=== PATIENT | female | born 1960 | race Caucasian/White ===

== ENCOUNTER 2017-08-16 19:32 | Emergency (ER) | payer SELFPAY ==
[2017-08-16] MEDS ORDERED: Bupivacaine 0.5% 10 ML VIAL ONE (19:55)
[2017-08-16] MEDS ORDERED: Ketorolac Tromethamine 30 MG/ML VIAL ONE (20:24)
[2017-08-16] MEDS ORDERED: Diazepam 10 MG/2 ML SYRINGE ONE (20:24)
== END 2017-08-16 20:48 | disposition home or self-care (01) ==
LOC: SCSER 19:32
DX: M62.838 Other muscle spasm (principal); I10 Essential (primary) hypertension; E11.9 Type 2 diabetes mellitus without complications; J45.909 Unspecified asthma, uncomplicated; F17.200 Nicotine dependence, unspecified, uncomplicated; Z79.84 Long term (current) use of oral hypoglycemic drugs; Z79.899 Other long term (current) drug therapy
CPT/HCPCS: 20552; 93005; 96374; 96375; J1885; J3360; J3490

== ENCOUNTER 2017-08-17 05:55 | Emergency (ER) | payer SELFPAY ==
[2017-08-17] MEDS ORDERED: Methocarbamol 500 MG TAB ONE ×2 (06:18)
== END 2017-08-17 06:37 | disposition home or self-care (01) ==
LOC: SCSER 05:55
DX: M62.838 Other muscle spasm (principal); E11.9 Type 2 diabetes mellitus without complications; F17.200 Nicotine dependence, unspecified, uncomplicated; G45.9 Transient cerebral ischemic attack, unspecified; I10 Essential (primary) hypertension; J45.909 Unspecified asthma, uncomplicated; Z79.84 Long term (current) use of oral hypoglycemic drugs; Z79.899 Other long term (current) drug therapy
CPT/HCPCS: 20552

== ENCOUNTER 2017-08-18 13:43 | Emergency (ER) | payer SELFPAY | END 2017-08-18 15:30 | disposition left against medical advice (07) | LOC: SCSER 13:43 | DX: Z53.21 Procedure and treatment not carried out due to patient leaving prior to being seen by health care provider (principal) ==

== ENCOUNTER 2017-08-19 22:22 | Emergency (ER) | payer SELFPAY ==
[2017-08-19] MEDS ORDERED: Morphine Sulfate 2 MG/ML SYRINGE ONE (22:53)
[2017-08-19] MEDS ORDERED: predniSONE 20 MG TAB ONE (22:53)
--- NOTE | 2017-08-19 23:34 | RAD ---
THORACIC SPINE THREE VIEWS: 08/19/17 HISTORY: Upper back pain. FINDINGS/IMPRESSION: No fracture or subluxation or bony destruction is identified. Mild degenerative changes are present. POS: [facility]
== END 2017-08-19 23:48 | disposition home or self-care (01) ==
LOC: SCSER 22:22
DX: M79.1 Myalgia (principal); E11.9 Type 2 diabetes mellitus without complications; I10 Essential (primary) hypertension; J45.909 Unspecified asthma, uncomplicated; F17.200 Nicotine dependence, unspecified, uncomplicated
CPT/HCPCS: 72072; 94640; 96372; J2270; J7506; J7620

== ENCOUNTER 2017-11-06 20:39 | Emergency (ER) | payer SELFPAY ==
[2017-11-06 22:14] LABS: #Eosinphils 0.2 thou/uL (0.0-0.7); #Lymphocytes 1.6 thou/uL (1.20-3.40); #Monocytes 0.3 thou/uL (0.11-0.59); #Neutrophils 3.4 thou/uL (1.40-6.50); %Basophils 0.7 % (0.0-1.0); %Eosinophils 3.4 % (0.0-10.0); %Lymphocytes 28.9 % (21.0-51.0); %Monocytes 5.1 % (0.0-10.0); Hematocrit 28.5 % (36.0-47.0); Mean Platelet Volume 5.1 fL (7.4-10.4); White Blood Cell (WBC) Count 5.5 thou/uL (4.8-10.8)
[2017-11-06 22:29] LABS: Anion Gap 15 mmol/L (10-20); BUN (Urea Nitrogen) 16 mg/dL (9.8-20.1); CK (CPK) 38 U/L (29-168); Calc. Creatinine Clearance 0 mL/min (70-130); Calcium 9.5 mg/dL (7.8-10.44); Carbon Dioxide 23 mmol/L (22-29); Chloride 108 mmol/L (98-107); Estimated GFR-MDRD 33
[2017-11-06 22:32] LABS: Troponin I Less than 0.010 ng/mL (< 0.028)
--- NOTE | 2017-11-06 23:10 | RAD ---
CHEST PA AND LATERAL: History: 57-year-old female with shortness of breath and fluid retention. FINDINGS: Heart size is within normal limits. There are minimal stable increased linear and interstitial markin gs noted bilaterally but no confluent pneumonia, overt edema, or pleural effusion. No significant radha nge from prior exam dating back to 07-04-16. IMPRESSION: No acute intrathoracic disease. POS: [facility]
[2017-11-06] MEDS ORDERED: Furosemide 40 MG/4 ML VIAL ONE (23:26)
== END 2017-11-06 23:52 | disposition home or self-care (01) ==
LOC: SCSER 20:39
DX: I12.9 Hypertensive chronic kidney disease with stage 1 through stage 4 chronic kidney disease, or unspecified chronic kidney disease (principal); E11.22 Type 2 diabetes mellitus with diabetic chronic kidney disease; N18.9 Chronic kidney disease, unspecified; E03.9 Hypothyroidism, unspecified; K21.9 Gastro-esophageal reflux disease without esophagitis; E78.5 Hyperlipidemia, unspecified; Z86.73 Personal history of transient ischemic attack (TIA), and cerebral infarction without residual deficits; Z85.41 Personal history of malignant neoplasm of cervix uteri; J45.909 Unspecified asthma, uncomplicated; F17.210 Nicotine dependence, cigarettes, uncomplicated; Z79.82 Long term (current) use of aspirin; Z79.84 Long term (current) use of oral hypoglycemic drugs; Z79.899 Other long term (current) drug therapy
CPT/HCPCS: 71020; 80048; 82553; 83880; 84484; 85025; 93005; 96374; J1940

== ENCOUNTER 2018-09-25 08:28 | Inpatient (IN) | payer SELFPAY ==
[2018-09-25 08:56] LABS: #Eosinphils 0.1 thou/uL (0.0-0.7); #Lymphocytes 1.2 thou/uL (1.20-3.40); #Monocytes 0.3 thou/uL (0.11-0.59); #Neutrophils 4.2 thou/uL (1.40-6.50); %Basophils 0.2 % (0.0-1.0); %Eosinophils 2.5 % (0.0-10.0); %Lymphocytes 20.2 % (21.0-51.0); %Monocytes 4.9 % (0.0-10.0); %Neutrophils 72.2 % (42.0-75.0); Hemoglobin 8.5 g/dL (12.0-16.0); Mean Corpuscular HGB CONC 31.7 g/dL (32.0-36.0); Mean Corpuscular Hemoglobin 27.9 pg (27.0-31.0); Mean Corpuscular Volume 88.1 fL (78.0-98.0); Mean Platelet Volume 7.7 fL (7.4-10.4); Platelet Count 147 thou/uL (130-400); Red Blood Cell (RBC) Count 3.03 mill/uL (4.20-5.40); White Blood Cell (WBC) Count 5.8 thou/uL (4.8-10.8)
--- NOTE | 2018-09-25 09:03 | RAD ---
PORTABLE CHEST 1 VIEW: Date: 09/25/18 Time: 0854 hours HISTORY: Chest pain, asthma. FINDINGS/IMPRESSION: Comparison made with exam of 09/18/17. The heart size is borderline. The lungs are well expanded with mild infiltrate at the right lung base with accompanying small effusion. POS: [facility]
[2018-09-25 09:18] LABS: ALT (SGPT) 9 U/L (8-55); AST (SGOT) 14 U/L (5-34); Albumin 4.2 g/dL (3.5-5.0); Alkaline Phosphatase 93 U/L (40-150); Anion Gap 14 mmol/L (10-20); BUN (Urea Nitrogen) 27 mg/dL (9.8-20.1); Bilirubin, Total 0.5 mg/dL (0.2-1.2); CK (CPK) 36 U/L (29-168); Calc. Creatinine Clearance 0 mL/min (70-130); Calcium 9.9 mg/dL (7.8-10.44); Carbon Dioxide 18 mmol/L (22-29); Chloride 112 mmol/L (98-107); Estimated GFR-MDRD 23; Globulin 3.4 g/dL (2.4-3.5); Glucose 130 mg/dL (70-105); Potassium 5.2 mmol/L (3.5-5.1); Protein, Total 7.6 g/dL (6.0-8.3); Sodium 139 mmol/L (136-145)
[2018-09-25 09:20] LABS: CKMB 1.2 ng/mL (0-6.6); Troponin I 0.068 ng/mL (< 0.028)
[2018-09-25] MEDS ORDERED: Azithromycin 500 MG VIAL ONE (09:21)
[2018-09-25] MEDS ORDERED: cefTRIAXone\\ROCEPHIN 1 GM VIAL ONE (09:21)
[2018-09-25 09:33] LABS: Free T4 (Free Thyroxine) 1.35 ng/dL (0.70-1.48); Thyroid Stimulating Hormone 0.8564 uIU/mL (0.35-4.94)
[2018-09-25] MEDS ORDERED: Dextrose 5% in Water 1,000 ML IV PRN (11:56)
[2018-09-25] MEDS ORDERED: Bisacodyl 10 MG SUPP PR PRN (11:56)
[2018-09-25] MEDS ORDERED: Calcium Carbonate 500 MG ChewTAB PO PRN (11:56)
[2018-09-25] MEDS ORDERED: Cepastat Lozenges 1 LOZ PO PRN (11:56)
[2018-09-25] MEDS ORDERED: Senokot S 8.6-50 MG TAB PO PRN (11:56)
[2018-09-25] MEDS ORDERED: Bisacodyl 5 MG TAB PO PRN (11:56)
[2018-09-25] MEDS ORDERED: Ondansetron ODT 4 MG TAB PO PRN (11:56)
[2018-09-25] MEDS ORDERED: Eucerin (Mineral Oil/Petrolatum,White) 30 gm Jar TOP PRN (11:56)
[2018-09-25] MEDS ORDERED: Loperamide HCl 2 MG CAP PO PRN (11:56)
[2018-09-25] MEDS ORDERED: Loratadine 10 MG TAB PO PRN (11:56)
[2018-09-25] MEDS ORDERED: Zolpidem Tartrate 5 MG TAB PO PRN (11:56)
[2018-09-25] MEDS ORDERED: Diabetic Tussin 200 MG/10 ML UDCUP PO PRN (11:56)
[2018-09-25] MEDS ORDERED: Artificial Tears 18 DROP/0.9 ML EA EYE PRN (11:56)
[2018-09-25] MEDS ORDERED: hydrALAZINE 20 MG/ML VIAL SLOW IVP PRN (11:56)
[2018-09-25] MEDS ORDERED: Dextrose 50% Abboject 50 ML SYRINGE SLOW IVP PRN (11:56)
[2018-09-25] MEDS ORDERED: Ondansetron PF 4 MG/2 ML Vial IVP PRN (11:56)
--- NOTE | 2018-09-25 12:18 | HP ---
DATE OF ADMISSION: 09/25/2018 PRIMARY CARE PHYSICIAN: [facility]. REASON FOR ADMISSION: Acute respiratory failure with hypoxia, community-acquired bacterial pneumonia , elevated troponin. HISTORY OF PRESENT ILLNESS: A 58-year-old female who has underlying history of asthma/COPD as well a s ongoing tobacco abuse disorder who presented to emergency room with a complaint of increasing short ness of breath for the last 2 days. The patient noticed that last week she started feeling shortness of breath and she was managing symptoms with her inhaler, but for the last 2 days, her inhaler was n ot working and she was feeling more shortness of breath. She was having orthopnea. She denies any l ower extremity edema. She reports that for last 2 days, she also was having increased amount of coug h without any sputum. She denies any hemoptysis. She denies any lower extremity edema or calf tende rness. She was feeling chest pain because of coughing. She was also experiencing her own wheezing. Night time, her symptoms were getting worse. She denies any recent travel or sick exposure. She co ntinued to smoke about half pack per day during this period. She is up-to-date in her flu vaccinatio n and she had pneumonia vaccine last year. She was experiencing some pleuritic discomfort. In the e mergency room, when she came to the ER, at that time her oxygen saturation was 80%-84%. She was slig htly tachycardic and she was having wheezing and no fever. Routine blood tests showed no new finding other than chest x-ray reported pneumonia. The patient denies any UTI symptoms. She denies any constipation, diarrhea, melena or hematochezia. REVIEW OF SYSTEMS: The following complete review of systems was negative, unless otherwise mentioned in the HPI or below: Constitutional: Weight loss or gain, ability to conduct usual activities. Sk in: Rash, itching. Eyes: Double vision, pain. ENT/Mouth: Nose bleeding, neck stiffness, pain, te nderness. Cardiovascular: Palpitations, dyspnea on exertion, orthopnea. Respiratory: Shortness of breath, wheezing, cough, hemoptysis, fever or night sweats. Gastrointestinal: Poor appetite, abdom inal pain, heartburn, nausea, vomiting, constipation, or diarrhea. Genitourinary: Urgency, frequenc y, dysuria, nocturia. Musculoskeletal: Pain, swelling. Neurologic/Psychiatric: Anxiety, depressio n. Allergy/Immunologic: Skin rash, bleeding tendency. Please see my HPI for pertinent positive and negative. All other review of systems reviewed and negative except as mentioned in the HPI. ALLERGIES: CODEINE, MEPERIDINE, PENICILLIN and SULFA. CURRENT HOME MEDICATIONS: Synthroid 175 mcg p.o. daily, amlodipine 10 mg daily, Zocor 40 mg p.o. at bedtime, ranitidine 300 mg p.o. at bedtime, Lasix 40 mg daily, albuterol inhaler nebulizer as needed, aspirin 81 mg 2 tablets daily, calcium with vitamin D 1 tablet daily, fish oil 1000 mg p.o. daily, g lyburide 5 mg as needed basis. PAST MEDICAL HISTORY: Diabetes type 2, hypothyroidism, hypertension, gastroesophageal reflux disease , dyslipidemia, history of cervical cancer, history of TIA, mild intermittent asthma/COPD, CKD stage 4. PAST SURGICAL HISTORY: Cholecystectomy, x2, hysterectomy, rotator cuff surgery on right sh oulder. PAST PSYCHIATRIC HISTORY: Reviewed and negative. SOCIAL HISTORY: The patient is , lives at home with the family. She smokes about half pack p er day. She denies any alcohol abuse. She denies any other illicit drug abuse. FAMILY HISTORY: The patient is . The patient's father had heart disease in his 60s and clemente r had dementia and pancreatic cancer. EMERGENCY ROOM COURSE: The patient has received Rocephin and azithromycin. PHYSICAL EXAMINATION: VITAL SIGNS: Currently on admission, blood pressure 172/71, pulse 112, respiratory rate 24, temperat ure 98.0, saturation 82% on room air, weight 76.2 kilograms. GENERAL: The patient is currently alert, awake, tachycardic, hypertensive. No obvious acute distres s. HEAD: Normocephalic, atraumatic. EYES: Pupils round and reactive to light. Extraocular muscle intact. ENT: Oropharynx within normal limits. Moist mucous membranes. No oral lesion, no pharyngeal erythe ma, no exudate. NECK: Supple. No JVD, no thyromegaly, no carotid bruit. LUNGS: Bilateral few end expiratory wheezing heard. Right basal rales noted. No accessory muscles of respiration in use. CARDIAC: S1, S2 regular, tachycardia. No murmur, no gallop, no rub. ABDOMEN: Soft, bowel sounds present, nontender, nondistended. No organomegaly, no mass, no suprapub ic tenderness. BACK: Unremarkable. No CVA tenderness. EXTREMITIES: Upper extremities, passive movement of all joints are normal. Lower extremities, trace edema noted. Good distal pulsation. SKIN: No skin rash. HEMATOLOGICAL: No lymphadenopathy. NEUROLOGIC: Nonfocal examination. Speech normal. SIGNIFICANT LABORATORY DATA: EKG showing sinus tachycardia, nonspecific ST-T changes. Chest x-ray s howing right lower lobe infiltration with small pleural effusion. CBC, WBC 5.8, hemoglobin 8.5 and p latelets 147,000. BMP, sodium 139, potassium 5.2, chloride 112, carbon dioxide 18, BUN 27, creatinin e 2.17, glucose 130, calcium 9.9. LFT, AST 14, ALT 9, alkaline phosphatase 93, albumin 4.2, CK 36, C K-MB 1.2. Troponin 0.068. Free T4 1.35. TSH 0.85. ASSESSMENT AND PLAN: 1. Acute respiratory failure with hypoxia. This patient has underlying asthma and currently she has radiologically proven pneumonia, which we are suspecting community-acquired bacterial pneumonia that is contributing to her hypoxia. The patient does not have any risk factor for thromboembolic disord er and less likely to be, but needs to be excluded. As the patient has renal insufficiency, we will do ventilation perfusion scan and we will obtain ultrasound of bilateral lower extremity and we will also obtain echocardiography. The patient will need oxygen to maintain saturation above 92% and we w ill try to wean from oxygen as tolerated. 2. Community-acquired pneumonia, likely bacterial, suspecting Streptococcal pneumoniae. The patient is already started on Rocephin and azithromycin, which she has tolerated very well, which we will co ntinue while in hospital. We will continue with Mucinex 600 mg twice daily. 3. Asthma/chronic obstructive pulmonary disease exacerbation. The patient will be given DuoNeb ther apy q.6 hourly and Dulera 2 puffs inhalation b.i.d., Mucinex 600 mg twice daily and appropriate antib iotic therapy with Rocephin and azithromycin. The patient will be given Solu-Medrol 20 mg IV q.8 fariha rly. We will check respiratory virus panel to identify a precipitating etiology. 4. Elevated troponin, likely due to demand ischemia. We will do serial cardiac enzymes x3 and monit or on telemetry floor. We will obtain echocardiography and continue the aspirin 162 mg p.o. daily. We will check lipid profile tomorrow morning. 5. Diabetes type 2. We will continue with insulin as per sliding scale protocol. The patient is no t taking any scheduled medication at home. Diabetic diet will be given. 6. Hypothyroidism. We will continue Synthroid 175 mcg p.o. daily. 7. Hypertension. Continue amlodipine 10 mg p.o. daily. 8. Dyslipidemia. Check lipid profile tomorrow and continue Zocor 40 mg p.o. at bedtime. 9. Gastroesophageal reflux disease. Continue Pepcid 20 mg p.o. daily. 10. Chronic kidney disease stage 4. Monitor renal function and avoid nephrotoxin agent. The patien t also has associated mild hyperkalemia and metabolic acidosis. We will repeat renal function test t omorrow. The patient is following Dr. Ricardo as an outpatient basis. 11. Anemia, normocytic, normochromic, likely due to renal disease. We will continue ferrous sulfate 325 mg p.o. daily. 12. Tobacco abuse disorder. The patient is given smoking cessation counseling. Healthy lifestyle m easures discussed with the patient. 13. Deep venous thrombosis prophylaxis, heparin 5000 units subcu twice daily. 14. Gastrointestinal prophylaxis, Pepcid 20 mg p.o. daily. CODE STATUS: The patient is full code. The patient does not have any surrogate decision maker. Disposition plan based on clinical course. We are expecting the patient's stay in hospital more than 2 midnights. Plan of care discussed with the patient in detail.
[2018-09-25 12:56] VITALS: BMI 32.8
[2018-09-25] MEDS: Calcium Carbonate + Vit D 1 TAB PO SCH (15:52)
[2018-09-25 16:50] LABS: Troponin I 0.169 ng/mL (< 0.028)
--- NOTE | 2018-09-25 17:02 | ULT ---
BILATERAL LOWER EXTREMITY VENOUS DOPPLER ULTRASOUND: Date: 09/25/18 HISTORY: Bilateral lower extremity edema and shortness of breath. TECHNIQUE: Wilcox scale ultrasound with color flow and spectral Doppler imaging of the deep venous systems of the lower extremities was performed bilaterally. FINDINGS: There is good flow, compression, and augmentation noted in the common femoral, femoral, deep femoral, popliteal, posterior tibial, and greater saphenous veins on either side. IMPRESSION: No evidence of deep venous thrombosis in either lower extremity. POS: [facility]
--- NOTE | 2018-09-25 17:49 | NM ---
VQ SCAN: HISTORY: Chest pain. Shortness of breath. CORRELATION: Chest radiograph from the same date. TECHNIQUE: A ventilation/perfusion scan was performed using 9.7 millicuries Xenon-133 by inhalation for the vent ilation study, followed by the intravenous administration of 5.4 millicuries technetium 99m MAA for t he perfusion scan. FINDINGS: Fairly homogeneous tracer distribution is seen in the lung rahman bilaterally on ventilation/perfusio n scans without mismatched, pleural-based, wedge-shaped, segmental/subsegmental perfusion defects. T here is tracer retention on the wash-out phase of the ventilation scan, consistent with COPD. IMPRESSION: Very low probability for pulmonary embolism. POS: [facility]
[2018-09-25] MEDS: Mometasone/Formoterol 120 PUFF INHALER INH SCH (18:21)
[2018-09-25] MEDS: Simvastatin 40 MG TAB PO SCH (21:30)
[2018-09-25] MEDS: guaiFENesin ER 600 MG TAB PO SCH (21:30)
[2018-09-25] MEDS: HumaLOG 300 UNITS/3 ML VIAL SC PRN (21:31)
[2018-09-26 04:51] LABS: Bilirubin Negative (Negative); Blood, Urine Small (Negative); Clarity CLOUDY (Clear); Glucose, Urine (Dipstick) Negative (Negative); Leukocyte Large (Negative); Nitrite Negative (Negative); Protein, Urine (Dipstick) > or equal to 300 mg/dL (Neg-Trace); Specific Gravity, Urine 1.017 (1.002-1.036); Urobilinogen 0.2 mg/dL (0.2-1.0)
[2018-09-26 04:54] LABS: Hyaline Casts/LPF 4-6 HYALINE CAST LPF (0-3 Hyaline); Pathc Cast-AUWi Flag 1.45 (0-2.49); WBC/HPF 21-50 HPF (0-3)
[2018-09-26 05:07] LABS: Yeast-AUWi Flag 44.4 (0-25.0)
[2018-09-26 05:23] LABS: Bacteria/HPF Rare-Few HPF (None Seen)
[2018-09-26] MEDS: Levothyroxine 175 MCG TAB PO SCH (05:24)
[2018-09-26 05:27] LABS: ALT (SGPT) 7 U/L (8-55); AST (SGOT) 10 U/L (5-34); Albumin 3.5 g/dL (3.5-5.0); Alkaline Phosphatase 74 U/L (40-150); Anion Gap 11 mmol/L (10-20); BUN (Urea Nitrogen) 33 mg/dL (9.8-20.1); Bilirubin, Total 0.4 mg/dL (0.2-1.2); Calc. Creatinine Clearance 34 mL/min (70-130); Calcium 9.4 mg/dL (7.8-10.44); Carbon Dioxide 19 mmol/L (22-29); Cardiac Risk 2.4 (Less than 4.5); Chloride 112 mmol/L (98-107); Cholesterol 88 mg/dl (< 200 Desired); Estimated GFR-MDRD 22; Globulin 2.8 g/dL (2.4-3.5); Glucose 206 mg/dL (70-105); HDL Cholesterol 37 mg/dL (>60 Neg Risk); LDL Cholesterol, Calculated 41 mg/dL; Protein, Total 6.3 g/dL (6.0-8.3); Sodium 136 mmol/L (136-145); Triglycerides 51 mg/dL (Less than 150)
[2018-09-26 06:12] LABS: #Lymphocytes 0.4 thou/uL (1.20-3.40); #Neutrophils 3.3 thou/uL (1.40-6.50); %Eosinophils 0.4 % (0.0-10.0); %Lymphocytes 9.9 % (21.0-51.0); %Neutrophils 88.7 % (42.0-75.0); Hemoglobin 7.6 g/dL (12.0-16.0); MDiff Complete? YES; Mean Corpuscular HGB CONC 31.7 g/dL (32.0-36.0); Mean Corpuscular Hemoglobin 28.3 pg (27.0-31.0); Mean Corpuscular Volume 89.1 fL (78.0-98.0); Mean Platelet Volume 8.1 fL (7.4-10.4); Ovalocytes SLIGHT = 2-5 cells (100X) (0-1/hpf); Platelet Count 111 thou/uL (130-400); RBC Distribution Width 14.6 % (11.5-14.5); White Blood Cell (WBC) Count 3.7 thou/uL (4.8-10.8)
[2018-09-26] MEDS: HumaLOG 300 UNITS/3 ML VIAL SC PRN ×3 (06:55→17:33)
[2018-09-26 07:43] LABS: Creatinine, Urine 135.41 mg/dL (47-110)
[2018-09-26] MEDS: Mometasone/Formoterol 120 PUFF INHALER INH SCH ×2 (07:48→18:15)
[2018-09-26] MEDS: Calcium Carbonate + Vit D 1 TAB PO SCH ×2 (08:18→17:38)
[2018-09-26] MEDS: Ferrous Sulfate 325 MG TAB PO SCH (08:18)
[2018-09-26] MEDS: Amlodipine 10 MG TAB PO SCH (08:19)
[2018-09-26] MEDS: cefTRIAXone\\ROCEPHIN 1 GM in Sodium Chloride 0.9% 100 ML IVPB SCH (08:19)
[2018-09-26] MEDS: Fish Oil 1,000 MG CAP PO SCH (08:20)
[2018-09-26] MEDS: Famotidine 20 MG TAB PO SCH (08:20)
[2018-09-26] MEDS: Sodium Bicarbonate Tab 325 MG TAB PO SCH ×2 (08:20→21:11)
[2018-09-26] MEDS: guaiFENesin ER 600 MG TAB PO SCH ×2 (08:20→21:12)
[2018-09-26] MEDS: Azithromycin 500 MG in Sodium Chloride 0.9% 250 ML 250 ML IVPB SCH (09:15)
--- NOTE | 2018-09-26 09:41 | PDOC.PN ---
- Subjective Encounter Start Date: 09/26/18 Encounter Start Time: 07:00 -: old records requested/rev Patient seen and examined. No new complaints. No overnight events pt has less cough and less dyspnea - Objective Resuscitation Status: Resuscitation Status FULL:Full Resuscitation MAR Reviewed: Yes Vital Signs & Weight: Vital Signs (12 hours) Temp Pulse Resp BP BP Pulse Ox 09/26/18 08:19 77 154/70 H 09/26/18 08:00 97.5 F L 77 20 154/70 H 98 09/26/18 07:49 98 09/26/18 07:48 78 16 98 09/26/18 04:00 97.7 F 67 18 128/60 96 09/25/18 23:55 97.7 F 77 19 126/58 L 96 Weight Weight 174 lb I&O: 09/25/18 09/26/18 09/27/18 06:59 06:59 06:59 Intake Total 474 Balance 474 Result Diagrams: 09/26/18 04:10 09/26/18 04:10 Additional Labs: Accuchecks 09/26/18 09/25/18 09/25/18 05:56 20:15 17:01 POC Glucose 210 H 257 H 137 H Radiology Reviewed by me: Yes (V/Q scan, US leg, Echo reviewed) EKG Reviewed by me: Yes (nsr) Phys Exam - Physical Examination Constitutional: NAD HEENT: PERRLA, moist MMs, sclera anicteric Neck: no JVD, supple bilateral scattered rales Cardiovascular: RRR, no significant murmur, no rub Gastrointestinal: soft, non-tender, no distention, positive bowel sounds Musculoskeletal: no edema, pulses present Neurological: non-focal, normal sensation, moves all 4 limbs Lymphatic: no nodes Psychiatric: normal affect, A&O x 3 Skin: no rash, normal turgor Dx/Plan (1) Acute respiratory failure with hypoxia Code(s): J96.01 - ACUTE RESPIRATORY FAILURE WITH HYPOXIA Status: Acute (2) CKD (chronic kidney disease) stage 4, GFR 15-29 ml/min Code(s): N18.4 - CHRONIC KIDNEY DISEASE, STAGE 4 (SEVERE) Status: Acute (3) COPD exacerbation Code(s): J44.1 - CHRONIC OBSTRUCTIVE PULMONARY DISEASE W (ACUTE) EXACERBATION Status: Acute (4) Community acquired bacterial pneumonia Code(s): J15.9 - UNSPECIFIED BACTERIAL PNEUMONIA Status: Acute (5) Demand ischemia of myocardium Code(s): I24.8 - OTHER FORMS OF ACUTE ISCHEMIC HEART DISEASE Status: Acute (6) Hyperkalemia Code(s): E87.5 - HYPERKALEMIA Status: Acute (7) Metabolic acidosis Code(s): E87.2 - ACIDOSIS Status: Acute (8) Thrombocytopenia Code(s): D69.6 - THROMBOCYTOPENIA, UNSPECIFIED Status: Acute (9) UTI (urinary tract infection) Status: Acute (10) Anemia of renal disease Code(s): N18.9 - CHRONIC KIDNEY DISEASE, UNSPECIFIED; D63.1 - ANEMIA IN CHRONIC KIDNEY DISEASE Status: Chronic (11) DM type 2 (diabetes mellitus, type 2) Status: Chronic (12) HLD (hyperlipidemia) Code(s): E78.5 - HYPERLIPIDEMIA, UNSPECIFIED Status: Chronic (13) HTN (hypertension) Code(s): I10 - ESSENTIAL (PRIMARY) HYPERTENSION Status: Chronic (14) Hypothyroidism Code(s): E03.9 - HYPOTHYROIDISM, UNSPECIFIED Status: Chronic (15) Nephrotic syndrome Code(s): N04.9 - NEPHROTIC SYNDROME WITH UNSPECIFIED MORPHOLOGIC CHANGES Status: Chronic (16) Obesity (BMI 30.0-34.9) Code(s): E66.9 - OBESITY, UNSPECIFIED Status: Chronic (17) Tobacco abuse Code(s): Z72.0 - TOBACCO USE Status: Chronic - Plan cont current plan of care, continue antibiotics, respiratory therapy * kayexalate 30 gm po one time * start sodium bicarbonate 650 mg po bid * continue Rocephin and azithromycin * continue respiratory therapy * monitor oxygen saturation * medication reviewed as below * symptomatic treatment. * repeat labs Review of Systems - Review of Systems Eyes: negative: Pain, Vision Change, Conjunctivae Inflammation, Eyelid Inflammation, Redness, Other ENT: negative: Ear Pain, Ear Discharge, Nose Pain, Nose Discharge, Nose Congestion, Mouth Pain, Mouth Swelling, Throat Pain, Throat Swelling, Other Respiratory: Cough. negative: Dry, Shortness of Breath, Hemoptysis, SOB with Excertion, Pleuritic Pain, Sputum, Wheezing Cardiovascular: negative: chest pain, palpitations, orthopnea, paroxysmal nocturnal dyspnea, edema, light headedness, other Gastrointestinal: negative: Nausea, Vomiting, Abdominal Pain, Diarrhea, Constipation, Melena, Hematochezia, Other Genitourinary: negative: Dysuria, Frequency, Incontinence, Hematuria, Retention , Other Musculoskeletal: negative: Neck Pain, Shoulder Pain, Arm Pain, Back Pain, Hand Pain, Leg Pain, Foot Pain, Other Skin: negative: Rash, Lesions, Sascha, Bruising, Other - Medications/Allergies Allergies/Adverse Reactions: Allergies Allergy/AdvReac Type Severity Reaction Status Date / Time codeine Allergy Verified 09/25/18 12:44 meperidine HCl [From Demerol] Allergy Verified 09/25/18 12:44 Penicillins Allergy Verified 09/25/18 12:44 sulfamethoxazole Allergy Verified 09/25/18 12:44 [From Bactrim] trimethoprim [From Bactrim] Allergy Verified 09/25/18 12:44 Medications: Current Medications Acetaminophen (Tylenol) 650 mg PO Q4H PRN PRN Reason: Headache/Fever/Mild Pain (1-3) Albuterol/Ipratropium (Duoneb) 3 ml NEB [id number] [facility] Last Admin: 09/26/18 07:48 Dose: 3 ml Albuterol/Ipratropium (Duoneb) 3 ml NEB [id number] PRN PRN Reason: SOB &/or Wheezing Amlodipine Besylate (Norvasc) 10 mg PO DAILY [facility] Last Admin: 09/26/18 08:19 Dose: 10 mg Artificial Tears (Tears Naturale) 2 drop EA EYE PRN PRN PRN Reason: Dry Eyes Aspirin (Aspirin Chewable) 162 mg PO DAILY [facility] Last Admin: 09/26/18 08:19 Dose: 162 mg Bisacodyl (Dulcolax) 10 mg PO DAILYPRN PRN PRN Reason: Constipation Bisacodyl (Dulcolax) 10 mg MO DAILYPRN PRN PRN Reason: Constipation Calcium Carbonate (Tums) 1,000 mg PO Q4H PRN PRN Reason: Heartburn or Indigestion Calcium/Vitamin D (Caltrate 600 + Vit D) 1 tab PO BID-[facility] Last Admin: 09/26/18 08:18 Dose: 1 tab Dextrose/Water (Dextrose 50%) 25 gm SLOW IVP PRN PRN PRN Reason: Hypoglycemia Famotidine (Pepcid) 20 mg PO DAILY [facility] Last Admin: 09/26/18 08:20 Dose: 20 mg Ferrous Sulfate (Feosol) 325 mg PO QA-[facility] Last Admin: 09/26/18 08:18 Dose: 325 mg Fish Oil (Fish Oil) 1,000 mg PO DAILY [facility] Last Admin: 09/26/18 08:20 Dose: 1,000 mg Glucagon (Glucagon) 1 mg IM PRN PRN PRN Reason: Hypoglycemia Guaifenesin (Mucinex) 600 mg PO Q12HR [facility] Last Admin: 09/26/18 08:20 Dose: 600 mg Guaifenesin (Robitussin Sf) 200 mg PO Q4H PRN PRN Reason: Cough Hydralazine HCl (Apresoline) 10 mg SLOW IVP Q4H PRN PRN Reason: SBP Greater Than 170 Azithromycin 500 mg/ Sodium (Chloride) 250 mls @ 250 mls/hr IVPB 1000 [facility] Last Admin: 09/26/18 09:15 Dose: 250 mls Ceftriaxone Sodium 1 gm/ (Sodium Chloride) 100 mls @ 200 mls/hr IVPB 0900 [facility] Last Admin: 09/26/18 08:19 Dose: 100 mls Dextrose/Water (D5w) 1,000 mls @ 0 mls/hr IV .Q0M PRN PRN Reason: Hypoglycemia Insulin Human Lispro (Humalog) 0 units SC .MODERATE SLIDING SC PRN PRN Reason: Moderate Correctional Scale Last Admin: 09/26/18 06:55 Dose: 4 unit Insulin Human Lispro (Humalog) 0 units SC .BEDTIME SLIDING SC PRN PRN Reason: Bedtime Correctional Scale Last Admin: 09/25/18 21:31 Dose: 3 unit Levothyroxine Sodium (Synthroid) 175 mcg PO 0600 [facility] Last Admin: 09/26/18 05:24 Dose: 175 mcg Loperamide HCl (Imodium) 2 mg PO PRN PRN PRN Reason: Diarrhea/Loose Stools Loratadine (Claritin) 10 mg PO DAILYPRN PRN PRN Reason: Sinus Symptoms Methylprednisolone Sodium Succinate (Solu-Medrol) 20 mg IVP Q8HR [facility] Last Admin: 09/26/18 05:24 Dose: 20 mg Mineral Oil/White Petrolatum (Eucerin Cream) 0 gm TOP BIDPRN PRN PRN Reason: Dry Skin Mometasone Furoate/Formoterol Fumar (Dulera 200 Mcg/5 Mcg Inhaler) 2 puff INH BID-RT [facility] Last Admin: 09/26/18 07:48 Dose: 2 puff Ondansetron HCl (Zofran Odt) 4 mg PO Q6H PRN PRN Reason: Nausea/Vomiting Ondansetron HCl (Zofran) 4 mg IVP Q6H PRN PRN Reason: Nausea/Vomiting Senna/Docusate Sodium (Senokot S) 2 tab PO BID PRN PRN Reason: Constipation Simvastatin (Zocor) 40 mg PO HS [facility] Last Admin: 09/25/18 21:30 Dose: 40 mg Sodium Bicarbonate (Bicarbonate, Sodium) 650 mg PO BID [facility] Last Admin: 09/26/18 08:20 Dose: 650 mg Sodium Chloride ([place] Nasal [place] 0.65%) 0 ml EA NARE QIDPRN PRN PRN Reason: Nasal Congestion Throat Lozenges (Cepastat Lozenges) 1 aide PO Q2H PRN PRN Reason: Sore Throat Zolpidem Tartrate (Ambien) 5 mg PO HSPRN PRN PRN Reason: Insomnia
[2018-09-26 16:29] LABS: CKMB 2.6 ng/mL (0-6.6); Troponin I 0.054 ng/mL (< 0.028)
[2018-09-26 19:48] LABS: CKMB 5.1 ng/mL (0-6.6); Troponin I 0.289 ng/mL (< 0.028)
[2018-09-26] MEDS: Simvastatin 40 MG TAB PO SCH (21:11)
[2018-09-26 22:30] LABS: CKMB 7.6 ng/mL (0-6.6); Troponin I 0.946 ng/mL (< 0.028)
[2018-09-26 23:18] LABS: Anion Gap 16 mmol/L (10-20); BUN (Urea Nitrogen) 39 mg/dL (9.8-20.1); Calc. Creatinine Clearance 35 mL/min (70-130); Calcium 9.9 mg/dL (7.8-10.44); Carbon Dioxide 18 mmol/L (22-29); Chloride 110 mmol/L (98-107); Estimated GFR-MDRD 23; Glucose 178 mg/dL (70-105); Potassium 5.6 mmol/L (3.5-5.1); Sodium 138 mmol/L (136-145)
[2018-09-26 23:30] LABS: #Lymphocytes 0.5 thou/uL (1.20-3.40); #Monocytes 0.2 thou/uL (0.11-0.59); #Neutrophils 8.6 thou/uL (1.40-6.50); %Eosinophils 0.1 % (0.0-10.0); %Lymphocytes 5.7 % (21.0-51.0); %Monocytes 1.9 % (0.0-10.0); %Neutrophils 92.3 % (42.0-75.0); Hemoglobin 7.5 g/dL (12.0-16.0); Mean Corpuscular HGB CONC 31.1 g/dL (32.0-36.0); Mean Corpuscular Hemoglobin 27.9 pg (27.0-31.0); Mean Corpuscular Volume 89.6 fL (78.0-98.0); Mean Platelet Volume 7.5 fL (7.4-10.4); Platelet Count 140 thou/uL (130-400); White Blood Cell (WBC) Count 9.3 thou/uL (4.8-10.8)
[2018-09-27 02:09] LABS: #Lymphocytes 0.6 thou/uL (1.20-3.40); #Monocytes 0.2 thou/uL (0.11-0.59); #Neutrophils 7.7 thou/uL (1.40-6.50); %Basophils 0.1 % (0.0-1.0); %Lymphocytes 7.2 % (21.0-51.0); %Neutrophils 90.6 % (42.0-75.0); Hemoglobin 7.6 g/dL (12.0-16.0); Mean Corpuscular HGB CONC 31.9 g/dL (32.0-36.0); Mean Corpuscular Hemoglobin 28.7 pg (27.0-31.0); Mean Corpuscular Volume 90.1 fL (78.0-98.0); Mean Platelet Volume 7.2 fL (7.4-10.4); Platelet Count 127 thou/uL (130-400); RBC Distribution Width 14.9 % (11.5-14.5); Red Blood Cell (RBC) Count 2.66 mill/uL (4.20-5.40); White Blood Cell (WBC) Count 8.5 thou/uL (4.8-10.8)
[2018-09-27 02:38] LABS: Troponin I 3.045 ng/mL (< 0.028)
[2018-09-27 02:45] LABS: Albumin 3.7 g/dL (3.5-5.0); Anion Gap 11 mmol/L (10-20); BUN (Urea Nitrogen) 42 mg/dL (9.8-20.1); BUN/Creatinine Ratio 18.34; Calc. Creatinine Clearance 33 mL/min (70-130); Calcium 9.9 mg/dL (7.8-10.44); Carbon Dioxide 21 mmol/L (22-29); Chloride 111 mmol/L (98-107); Estimated GFR-MDRD 22; Glucose 253 mg/dL (70-105); Phosphorus 5.2 mg/dL (2.3-4.7); Potassium 6.3 mmol/L (3.5-5.1); Sodium 137 mmol/L (136-145)
[2018-09-27] MEDS ORDERED: Insulin Regular 300 UNITS/3 ML VIAL IVP SCH ×2 (02:45→03:00)
--- NOTE | 2018-09-27 02:50 | PDOC.EVN ---
Event Note - Event Note Event Note: Nurse called about pt's elevated trops, pt is asleep. EKG no acute changes. she had a stress test in 2017 which was normal. pt's trop done at 0200 were significantly elevated but pt states she has been having chest pressure since admission. Her pressure has not increased in intensity. Per nurse vitals are stable. will start pt on heparin drip and consult cardiology. She will also need nephrology since her K is high and she has ckd stage 4. will give her insulin and d50. Also will give her calcium gluconate. will apply nitro topical. Pt is a smoker, has dm so she is high risk for heart disease. Ekg done at 0230 no acute changes.
[2018-09-27] MEDS ORDERED: Dextrose 50% Abboject 50 ML SYRINGE SLOW IVP SCH (03:00)
[2018-09-27] MEDS ORDERED: Calcium Gluc 4.6 MEQ/10 ML (100 MG/ML) SLOW IVP SCH (03:00)
[2018-09-27 03:05] LABS: Hemoglobin 7.6 g/dL (12.0-16.0); Platelet Count 137 thou/uL (130-400)
[2018-09-27] MEDS ORDERED: Nitroglycerin 2% Ointment 1 INCH/1 GM Packet TOP PRN (03:18)
[2018-09-27] MEDS ORDERED: Nitroglycerin 2% Ointment 1 INCH/1 GM Packet TOP SCH (03:30)
[2018-09-27] MEDS: Heparin 10,000 UNITS/ 10 ML VIAL SLOW IVP SCH ×4 (03:40→23:25)
[2018-09-27] MEDS: Heparin 25,000 units/D5W 500 ML IVPB SCH (03:53)
[2018-09-27] MEDS: Levothyroxine 175 MCG TAB PO SCH (05:20)
[2018-09-27] MEDS: HumaLOG 300 UNITS/3 ML VIAL SC PRN ×4 (06:13→20:55)
[2018-09-27] MEDS: Acetaminophen 325 MG TAB PO PRN ×3 (06:18→20:52)
[2018-09-27 06:22] LABS: CKMB 8.3 ng/mL (0-6.6); Troponin I 4.131 ng/mL (< 0.028)
[2018-09-27] MEDS: Mometasone/Formoterol 120 PUFF INHALER INH SCH ×2 (06:40→18:54)
[2018-09-27 07:13] LABS: Anion Gap 12 mmol/L (10-20); BUN (Urea Nitrogen) 41 mg/dL (9.8-20.1); Calc. Creatinine Clearance 33 mL/min (70-130); Calcium 10.5 mg/dL (7.8-10.44); Carbon Dioxide 20 mmol/L (22-29); Chloride 111 mmol/L (98-107); Estimated GFR-MDRD 22; Glucose 206 mg/dL (70-105); Potassium 5.9 mmol/L (3.5-5.1); Sodium 137 mmol/L (136-145)
[2018-09-27 07:25] LABS: Cardiac Risk 2.5 (Less than 4.5)
[2018-09-27] MEDS: Calcium Carbonate + Vit D 1 TAB PO SCH ×2 (08:42→17:11)
[2018-09-27] MEDS: Ferrous Sulfate 325 MG TAB PO SCH (08:42)
[2018-09-27] MEDS: cefTRIAXone\\ROCEPHIN 1 GM in Sodium Chloride 0.9% 100 ML IVPB SCH (08:43)
[2018-09-27] MEDS: Amlodipine 10 MG TAB PO SCH (08:43)
[2018-09-27] MEDS: Sodium Bicarbonate Tab 325 MG TAB PO SCH ×2 (08:44→20:52)
[2018-09-27] MEDS: Fish Oil 1,000 MG CAP PO SCH (08:44)
[2018-09-27] MEDS: Metoprolol Tartrate 25 MG TAB PO SCH ×2 (08:44→20:52)
[2018-09-27] MEDS: Famotidine 20 MG TAB PO SCH (08:44)
[2018-09-27] MEDS: Azithromycin 500 MG in Sodium Chloride 0.9% 250 ML 250 ML IVPB SCH (09:27)
[2018-09-27] MEDS: guaiFENesin ER 600 MG TAB PO SCH (09:42)
--- NOTE | 2018-09-27 10:41 | PDOC.PN ---
- Subjective Encounter Start Date: 09/27/18 Encounter Start Time: 09:30 -: old records requested/rev Patient seen and examined. No new complaints. No overnight events she feels chest pressure - Objective Resuscitation Status: Resuscitation Status FULL:Full Resuscitation MAR Reviewed: Yes Vital Signs & Weight: Vital Signs (12 hours) Temp Pulse Resp BP BP Pulse Ox 09/27/18 08:43 75 136/64 09/27/18 08:00 95 09/27/18 07:51 97.8 F 74 20 136/64 95 09/27/18 06:40 74 16 97 09/27/18 05:44 88 18 96 09/27/18 04:00 98.1 F 73 19 147/67 H 91 L 09/27/18 00:00 97.7 F 74 18 128/63 96 Weight Weight 174 lb I&O: 09/26/18 09/27/18 09/28/18 06:59 06:59 06:59 Intake Total 474 1450 Output Total 350 Balance 474 1100 Result Diagrams: 09/27/18 02:52 09/27/18 05:48 Additional Labs: Accuchecks 09/26/18 09/26/18 09/26/18 20:30 16:51 10:33 POC Glucose 193 H 224 H 275 H Radiology Reviewed by me: Yes EKG Reviewed by me: Yes (nsr) Phys Exam - Physical Examination Constitutional: NAD HEENT: PERRLA, moist MMs, sclera anicteric Neck: no JVD, supple Respiratory: no wheezing, no rhonchi few scattered rales Cardiovascular: RRR, no significant murmur, no rub Gastrointestinal: soft, non-tender, no distention, positive bowel sounds Musculoskeletal: no edema, pulses present Neurological: non-focal, normal sensation, moves all 4 limbs Lymphatic: no nodes Psychiatric: normal affect, A&O x 3 Skin: no rash, normal turgor Dx/Plan (1) Acute respiratory failure with hypoxia Code(s): J96.01 - ACUTE RESPIRATORY FAILURE WITH HYPOXIA Status: Acute (2) CKD (chronic kidney disease) stage 4, GFR 15-29 ml/min Code(s): N18.4 - CHRONIC KIDNEY DISEASE, STAGE 4 (SEVERE) Status: Acute (3) COPD exacerbation Code(s): J44.1 - CHRONIC OBSTRUCTIVE PULMONARY DISEASE W (ACUTE) EXACERBATION Status: Acute (4) Community acquired bacterial pneumonia Code(s): J15.9 - UNSPECIFIED BACTERIAL PNEUMONIA Status: Acute (5) Demand ischemia of myocardium Code(s): I24.8 - OTHER FORMS OF ACUTE ISCHEMIC HEART DISEASE Status: Acute (6) Hyperkalemia Code(s): E87.5 - HYPERKALEMIA Status: Acute (7) Metabolic acidosis Code(s): E87.2 - ACIDOSIS Status: Acute (8) Thrombocytopenia Code(s): D69.6 - THROMBOCYTOPENIA, UNSPECIFIED Status: Acute (9) UTI (urinary tract infection) Status: Acute (10) Anemia of renal disease Code(s): N18.9 - CHRONIC KIDNEY DISEASE, UNSPECIFIED; D63.1 - ANEMIA IN CHRONIC KIDNEY DISEASE Status: Chronic (11) DM type 2 (diabetes mellitus, type 2) Status: Chronic (12) HLD (hyperlipidemia) Code(s): E78.5 - HYPERLIPIDEMIA, UNSPECIFIED Status: Chronic (13) HTN (hypertension) Code(s): I10 - ESSENTIAL (PRIMARY) HYPERTENSION Status: Chronic (14) Hypothyroidism Code(s): E03.9 - HYPOTHYROIDISM, UNSPECIFIED Status: Chronic (15) Nephrotic syndrome Code(s): N04.9 - NEPHROTIC SYNDROME WITH UNSPECIFIED MORPHOLOGIC CHANGES Status: Chronic (16) Obesity (BMI 30.0-34.9) Code(s): E66.9 - OBESITY, UNSPECIFIED Status: Chronic (17) Tobacco abuse Code(s): Z72.0 - TOBACCO USE Status: Chronic (18) NSTEMI (non-ST elevated myocardial infarction) Code(s): I21.4 - NON-ST ELEVATION (NSTEMI) MYOCARDIAL INFARCTION Status: Acute - Plan cont current plan of care, continue antibiotics, respiratory therapy * continue heparin drip * cardiology consulted * nephrology consulted * DC solumedrol * hyperkalemia cocktail treatment given * monitor labs * will monitor. Review of Systems - Review of Systems Eyes: negative: Pain, Vision Change, Conjunctivae Inflammation, Eyelid Inflammation, Redness, Other ENT: negative: Ear Pain, Ear Discharge, Nose Pain, Nose Discharge, Nose Congestion, Mouth Pain, Mouth Swelling, Throat Pain, Throat Swelling, Other Respiratory: SOB with Excertion. negative: Cough, Dry, Shortness of Breath, Hemoptysis, Pleuritic Pain, Sputum, Wheezing Cardiovascular: chest pain. negative: palpitations, orthopnea, paroxysmal nocturnal dyspnea, edema, light headedness, other Gastrointestinal: negative: Nausea, Vomiting, Abdominal Pain, Diarrhea, Constipation, Melena, Hematochezia, Other Genitourinary: negative: Dysuria, Frequency, Incontinence, Hematuria, Retention , Other Musculoskeletal: negative: Neck Pain, Shoulder Pain, Arm Pain, Back Pain, Hand Pain, Leg Pain, Foot Pain, Other Skin: negative: Rash, Lesions, Sascha, Bruising, Other - Medications/Allergies Allergies/Adverse Reactions: Allergies Allergy/AdvReac Type Severity Reaction Status Date / Time codeine Allergy Verified 09/25/18 12:44 meperidine HCl [From Demerol] Allergy Verified 09/25/18 12:44 Penicillins Allergy Verified 09/25/18 12:44 sulfamethoxazole Allergy Verified 09/25/18 12:44 [From Bactrim] trimethoprim [From Bactrim] Allergy Verified 09/25/18 12:44 Medications: Current Medications Acetaminophen (Tylenol) 650 mg PO Q4H PRN PRN Reason: Headache/Fever/Mild Pain (1-3) Last Admin: 09/27/18 06:18 Dose: 650 mg Albuterol/Ipratropium (Duoneb) 3 ml NEB [id number] PRN PRN Reason: SOB &/or Wheezing Last Admin: 09/27/18 05:44 Dose: 3 ml Amlodipine Besylate (Norvasc) 10 mg PO DAILY [facility] Last Admin: 09/27/18 08:43 Dose: 10 mg Artificial Tears (Tears Naturale) 2 drop EA EYE PRN PRN PRN Reason: Dry Eyes Aspirin (Aspirin Chewable) 162 mg PO DAILY [facility] Last Admin: 09/27/18 08:43 Dose: 162 mg Atorvastatin Calcium (Lipitor) 40 mg PO HS [facility] Bisacodyl (Dulcolax) 10 mg PO DAILYPRN PRN PRN Reason: Constipation Bisacodyl (Dulcolax) 10 mg [place] DAILYPRN PRN PRN Reason: Constipation Calcium Carbonate (Tums) 1,000 mg PO Q4H PRN PRN Reason: Heartburn or Indigestion Calcium/Vitamin D (Caltrate 600 + Vit D) 1 tab PO BID-[facility] Last Admin: 09/27/18 08:42 Dose: 1 tab Dextrose/Water (Dextrose 50%) 25 gm SLOW IVP PRN PRN PRN Reason: Hypoglycemia Famotidine (Pepcid) 20 mg PO DAILY [facility] Last Admin: 09/27/18 08:44 Dose: 20 mg Ferrous Sulfate (Feosol) 325 mg PO QAM-[facility] Last Admin: 09/27/18 08:42 Dose: 325 mg Fish Oil (Fish Oil) 1,000 mg PO DAILY [facility] Last Admin: 09/27/18 08:44 Dose: 1,000 mg Glucagon (Glucagon) 1 mg IM PRN PRN PRN Reason: Hypoglycemia Guaifenesin (Mucinex) 600 mg PO Q12HR [facility] Last Admin: 09/27/18 09:42 Dose: Not Given Guaifenesin (Robitussin Sf) 200 mg PO Q4H PRN PRN Reason: Cough Heparin Sodium (Porcine) (Heparin 1,000 Units/Ml (10 Ml)) 0 units SLOW IVP ASDIR [facility]; Protocol Last Admin: 09/27/18 09:25 Dose: 4,000 unit Hydralazine HCl (Apresoline) 10 mg SLOW IVP Q4H PRN PRN Reason: SBP Greater Than 170 Azithromycin 500 mg/ Sodium (Chloride) 250 mls @ 250 mls/hr IVPB 1000 [facility] Last Admin: 09/27/18 09:27 Dose: 250 mls Ceftriaxone Sodium 1 gm/ (Sodium Chloride) 100 mls @ 200 mls/hr IVPB 0900 [facility] Last Admin: 09/27/18 08:43 Dose: 100 mls Dextrose/Water (D5w) 1,000 mls @ 0 mls/hr IV .Q0M PRN PRN Reason: Hypoglycemia Heparin Sodium/Dextrose (Heparin 25,000 Units/D5w 500 Ml) 500 mls @ 0 mls/hr IVPB INF [facility]; Protocol Last Admin: 09/27/18 03:53 Dose: 500 mls Insulin Human Lispro (Humalog) 0 units SC .MODERATE SLIDING SC PRN PRN Reason: Moderate Correctional Scale Last Admin: 09/27/18 06:13 Dose: 4 unit Insulin Human Lispro (Humalog) 0 units SC .BEDTIME SLIDING SC PRN PRN Reason: Bedtime Correctional Scale Last Admin: 09/25/18 21:31 Dose: 3 unit Levothyroxine Sodium (Synthroid) 175 mcg PO 0600 [facility] Last Admin: 09/27/18 05:20 Dose: 175 mcg Loperamide HCl (Imodium) 2 mg PO PRN PRN PRN Reason: Diarrhea/Loose Stools Loratadine (Claritin) 10 mg PO DAILYPRN PRN PRN Reason: Sinus Symptoms Metoprolol Tartrate (Lopressor) 25 mg PO BID [facility] Last Admin: 09/27/18 08:44 Dose: 25 mg Mineral Oil/White Petrolatum (Eucerin Cream) 0 gm TOP BIDPRN PRN PRN Reason: Dry Skin Mometasone Furoate/Formoterol Fumar (Dulera 200 Mcg/5 Mcg Inhaler) 2 puff INH BID-RT [facility] Last Admin: 09/27/18 06:40 Dose: 2 puff Nitroglycerin (Nitro-Bid 2% Ointment) 0.5 inch TOP Q6H PRN PRN Reason: Chest Pain Ondansetron HCl (Zofran Odt) 4 mg PO Q6H PRN PRN Reason: Nausea/Vomiting Ondansetron HCl (Zofran) 4 mg IVP Q6H PRN PRN Reason: Nausea/Vomiting Last Admin: 09/26/18 14:16 Dose: 4 mg Senna/Docusate Sodium (Senokot S) 2 tab PO BID PRN PRN Reason: Constipation Sodium Bicarbonate (Bicarbonate, Sodium) 650 mg PO BID [facility] Last Admin: 09/27/18 08:44 Dose: 650 mg Sodium Chloride ([place] Nasal [place] 0.65%) 0 ml EA NARE QIDPRN PRN PRN Reason: Nasal Congestion Throat Lozenges (Cepastat Lozenges) 1 aide PO Q2H PRN PRN Reason: Sore Throat Zolpidem Tartrate (Ambien) 5 mg PO HSPRN PRN PRN Reason: Insomnia
[2018-09-27] MEDS: Sevelamer Carbonate 800 MG TAB PO SCH ×2 (11:47→17:11)
[2018-09-27] MEDS ORDERED: Furosemide 40 MG/4 ML VIAL SLOW IVP SCH (13:00)
--- NOTE | 2018-09-27 13:07 | CON ---
DATE OF CONSULTATION: 09/27/2018 HISTORY: Rosanne Alex is a 58-year-old white female admitted with increased shortness of breath as well as some chest pressure when she presented. She has undergone previous evaluation here. In 08/2013, she presented with chest pain. She underwent Lexiscan Cardiolite testing, which revealed no evidence of ischemia or fixed defect. In 06/2016, she presented with left arm numbness which was felt to be due to a TIA. Echocardiogram at that time revealed ejection fraction of greater than 70% with no significant valvular abnormalities. Again in 09/2017, she presented with chest pain. Lexiscan Cardiolite again revealed no evidence of ischemia. She now presents stating that she has had problems with increased cough and shortness of breath since 09/22/2018. She has a cough productive of clear sputum and denies any fever. She denied any recent lower extremity edema. She continued to have progressive shortness of breath and stated that she felt chest pressure when she felt as if she could not breathe. She came to the emergency room and her O2 saturations were 80-84%. She has been admitted and placed on neb treatments as well as antibiotics. She states that her breathing has improved and she has not had any recurrence of the chest discomfort. She has had abnormal troponin. PAST MEDICAL HISTORY: Diabetes, hypertension, hypothyroidism, GERD, hypercholesterolemia, history of TIA, history of cervical cancer asthma/COPD, chronic kidney disease stage 4. OPERATIONS: x2, partial hysterectomy and then complete hysterectomy, cholecystectomy and right rotator cuff surgery. MEDICATIONS: Synthroid 175 mcg daily, amlodipine 10 mg daily, simvastatin 40 at bedtime, ranitidine 300 at bedtime, Lasix 40 mg daily, albuterol p.r.n., aspirin 81 mg 2 tablets daily, calcium and vitamin D, fish oil 1000 mg daily, glyburide 5 mg p.r.n. ALLERGIES: CODEINE, MEPERIDINE, PENICILLIN, SULFA DRUGS. SOCIAL HISTORY: She continues to smoke one half pack per day. She does not drink alcohol. FAMILY HISTORY: Father had heart disease. REVIEW OF SYSTEMS: Twelve point review of systems was otherwise unremarkable. PHYSICAL EXAMINATION: VITAL SIGNS: Blood pressure 130/62, pulse of 67. HEENT: PERRL. NECK: Supple. LUNGS: Chest reveals expiratory wheezing. CARDIAC: S1, S2 normal, without any S3, S4 or murmurs. ABDOMEN: Normal bowel sounds, without tenderness or organomegaly. EXTREMITIES: Revealed no clubbing, cyanosis or edema. NEUROLOGIC: Grossly intact. SKIN: Warm and dry. LABORATORY: EKGs revealed normal sinus rhythm and are unremarkable. Hemoglobin 7.6, hematocrit 24.0, platelets 137,000. PTT 37.6. Sodium 137, potassium 5.9, chloride 111, carbon dioxide 20, BUN 41, creatinine 2.30. CK-MB is up to 8.3, troponin I 4.131. Cholesterol 109, triglycerides 66, HDL 44, LDL 52. TSH is low at 0.3169. Free T4 is normal. Urinalysis reveals rare bacteria , 21-50 WBCs. Urine drug screen is unremarkable. Lower extremity venous duplex revealed no evidence of DVT in either lower extremity. Pulmonary perfusion scan revealed a very low probability for pulmonary embolism. Echocardiogram this admission revealed ejection fraction of 55-60% with moderate left atrial dilatation, mild mitral regurgitation, aortic valvular sclerosis and mild tricuspid regurgitation. Chest x-ray reveals a small right effusion. IMPRESSION: 1. Acute respiratory failure with hypoxemia with O2 saturations of 80-84% when seen in the emergency room. 2. Possible community-acquired pneumonia and chronic obstructive pulmonary disease exacerbation. She has been on Rocephin and azithromycin. 3. Elevated troponin I, probably due to demand ischemia from her hypoxemia, infectious process and renal insufficiency. 4. Diabetes. 5. Hypothyroidism. 6. Hypertension. 7. Hypercholesterolemia, under good control. 8. Chronic kidney disease stage 4. 9. Gastroesophageal reflux disease. 10. Anemia, probably due to renal disease. 11. Smoker. PLAN: At the present time, Ms. Alex is anemic and may require a transfusion. With her chronic kidney disease with creatinine of 2.3, I am hesitant to have her undergo cardiac catheterization without more indication that there is evidence of myocardial ischemia. She therefore will undergo Lexiscan Cardiolite testing to further evaluate her abnormal troponin I. DVAIDD
[2018-09-27] MEDS: Atorvastatin Calcium 40 MG TAB PO SCH (20:52)
[2018-09-28] MEDS: Heparin 25,000 units/D5W 500 ML IVPB SCH (01:17)
--- NOTE | 2018-09-28 01:44 | CON ---
DATE OF CONSULTATION: 09/27/2018 CONSULTING PHYSICIAN: Dr. Spicer. REASON FOR CONSULTATION: Acute kidney injury on chronic kidney disease and hyperkalemia. REASON FOR ADMISSION: Shortness of breath. HISTORY OF PRESENT ILLNESS: A 58-year-old female with history of type 2 diabetes, hypothyroidism, hy pertension, hyperlipidemia, who came to the hospital with shortness of breath and found to have commu nity-acquired pneumonia and being treated. Nephrology consulted for hyperkalemia. Patient's potassi um was 5.9 to 6.3 and creatinine is stable around her baseline around 2.2 with a GFR of 22. Patient denies any shortness of breath. She does not have any swelling. She usually used Lasix and also Apollo tassa at home and which is not available in the hospital. No fever or chills. No skin rash. PAST MEDICAL HISTORY: Positive for type 2 diabetes, hypothyroidism, hypertension, gastroesophageal r eflux disease, hyperlipidemia, TIA, COPD, chronic kidney disease. PAST SURGICAL HISTORY: Cholecystectomy, , hysterectomy, rotator cuff surgery. HOME MEDICATIONS: Albuterol, Lasix, vitamin D3, aspirin, amlodipine, fish oil, levothyroxine, lovast atin, Glucotrol, ranitidine. ALLERGIES: CODEINE, PENICILLIN, MEPERIDINE, SULFAMETHOXAZOLE. SOCIAL HISTORY: Smokes half pack per day. No alcohol or illicit drug abuse. FAMILY HISTORY: Positive for heart disease. REVIEW OF SYSTEMS: The following complete review of systems was negative, unless otherwise mentioned in the HPI or below: Constitutional: Weight loss or gain, ability to conduct usual activities. Sk in: Rash, itching. Eyes: Double vision, pain. ENT/Mouth: Nose bleeding, neck stiffness, pain, te nderness. Cardiovascular: Palpitations, dyspnea on exertion, orthopnea. Respiratory: Shortness of breath, wheezing, cough, hemoptysis, fever, or night sweats. Gastrointestinal: Poor appetite, abdo adalgisa pain, heartburn, nausea, vomiting, constipation, or diarrhea. Genitourinary: Urgency, frequen cy, dysuria, nocturia. Musculoskeletal: Pain, swelling. Neurologic/Psychiatric: Anxiety, depressi on. Allergy/Immunologic: Skin rash, bleeding tendency. PHYSICAL EXAMINATION: GENERAL: This is a thin-built white female in no apparent distress. VITAL SIGNS: Temperature 98.4, pulse 77, respiratory rate 18, blood pressure 123/69. HEENT: Atraumatic, normocephalic. Oral mucosa is moist. NECK: Supple, no masses. HEART: S1, S2 heard. Rate and rhythm regular. RESPIRATORY: Clear. GASTROINTESTINAL: Abdomen is soft. MUSCULOSKELETAL: 1+ edema. DERMATOLOGIC: No skin rash. NEUROLOGIC: Alert, awake. PSYCHIATRIC: Mood and affect normal. LABORATORY AND X-RAY FINDINGS: Hemoglobin is 7.6. Potassium is 5.9, BUN is 41, creatinine is 2.3, G FR of . ASSESSMENT AND PLAN: 1. Acute kidney injury on chronic kidney, stage 4. Renal function is stable at her baseline. 2. Hyperkalemia. We will start her on home dose of Veltassa. We will give a dose of Lasix. 3. Edema, controlled. 4. Anemia, chronic. We will check iron studies and will give Epogen as tolerated. 5. Metabolic acidosis on oral sodium bicarbonate. 6. Mild hypercalcemia. 7. Elevated troponin per primary team. 8. Proteinuria. 9. Diabetic nephropathy. We will start back on Veltassa and low potassium diet. We will follow. Thank you for the consult.
[2018-09-28 06:16] LABS: ALT (SGPT) 10 U/L (8-55); AST (SGOT) 14 U/L (5-34); Albumin 3.7 g/dL (3.5-5.0); Alkaline Phosphatase 69 U/L (40-150); Anion Gap 10 mmol/L (10-20); BUN (Urea Nitrogen) 49 mg/dL (9.8-20.1); Bilirubin, Total 0.4 mg/dL (0.2-1.2); Calc. Creatinine Clearance 33 mL/min (70-130); Calcium 9.6 mg/dL (7.8-10.44); Carbon Dioxide 24 mmol/L (22-29); Chloride 110 mmol/L (98-107); Estimated GFR-MDRD 21; Glucose 128 mg/dL (70-105); Iron 21 ug/dL (50-170); Iron Binding Capacity, Total 226 mcg/dL (265-497); Potassium 5.4 mmol/L (3.5-5.1); Protein, Total 6.7 g/dL (6.0-8.3); Sodium 139 mmol/L (136-145)
[2018-09-28] MEDS: Heparin 10,000 UNITS/ 10 ML VIAL SLOW IVP SCH (06:37)
[2018-09-28] MEDS: Mometasone/Formoterol 120 PUFF INHALER INH SCH ×2 (06:40→19:30)
[2018-09-28] MEDS: Levothyroxine 175 MCG TAB PO SCH ×2 (07:38→11:51)
[2018-09-28] MEDS: Acetaminophen 325 MG TAB PO PRN ×3 (08:13→20:30)
[2018-09-28] MEDS: cefTRIAXone\\ROCEPHIN 1 GM in Sodium Chloride 0.9% 100 ML IVPB SCH (08:13)
[2018-09-28] MEDS ORDERED: Epoetin (ESRD) 10,000 UNITS/ML VIAL SC SCH (08:45)
[2018-09-28] MEDS ORDERED: Iron Sucrose Complex 100 MG in Sodium Chloride 0.9% 100 ML IVPB SCH (08:45)
--- NOTE | 2018-09-28 09:12 | PDOC.PN ---
- Subjective Encounter Start Date: 09/28/18 Encounter Start Time: 07:00 overall feels better, no chest pain today, potassium better, today plan for stress test - Objective Resuscitation Status: Resuscitation Status FULL:Full Resuscitation MAR Reviewed: Yes Vital Signs & Weight: Vital Signs (12 hours) Temp Pulse Resp BP Pulse Ox 09/28/18 07:47 98.3 F 85 20 143/66 H 93 L 09/28/18 05:48 88 16 09/28/18 04:00 97.9 F 71 16 121/57 L 94 L 09/27/18 23:57 98.3 F 78 20 135/65 92 L Weight Weight 174 lb I&O: 09/27/18 09/28/18 09/29/18 06:59 06:59 06:59 Intake Total 1450 2155 Output Total 350 Balance 1100 2155 Result Diagrams: 09/27/18 02:52 09/28/18 05:28 Additional Labs: Accuchecks 09/28/18 09/27/18 09/27/18 05:40 20:45 16:37 POC Glucose 129 H 217 H 152 H 09/27/18 09/27/18 10:35 05:59 POC Glucose 343 H 203 H EKG Reviewed by me: Yes (nsr) Phys Exam - Physical Examination Constitutional: NAD HEENT: PERRLA, moist MMs, sclera anicteric Neck: no JVD, supple Respiratory: no wheezing, no rales, no rhonchi Cardiovascular: RRR, no significant murmur, no rub Gastrointestinal: soft, non-tender, no distention, positive bowel sounds Musculoskeletal: no edema, pulses present Neurological: non-focal, normal sensation, moves all 4 limbs Lymphatic: no nodes Psychiatric: normal affect, A&O x 3 Skin: no rash, normal turgor Dx/Plan (1) Acute respiratory failure with hypoxia Code(s): J96.01 - ACUTE RESPIRATORY FAILURE WITH HYPOXIA Status: Acute (2) CKD (chronic kidney disease) stage 4, GFR 15-29 ml/min Code(s): N18.4 - CHRONIC KIDNEY DISEASE, STAGE 4 (SEVERE) Status: Acute (3) COPD exacerbation Code(s): J44.1 - CHRONIC OBSTRUCTIVE PULMONARY DISEASE W (ACUTE) EXACERBATION Status: Acute (4) Community acquired bacterial pneumonia Code(s): J15.9 - UNSPECIFIED BACTERIAL PNEUMONIA Status: Acute (5) Demand ischemia of myocardium Code(s): I24.8 - OTHER FORMS OF ACUTE ISCHEMIC HEART DISEASE Status: Acute (6) Hyperkalemia Code(s): E87.5 - HYPERKALEMIA Status: Acute (7) Metabolic acidosis Code(s): E87.2 - ACIDOSIS Status: Acute (8) Thrombocytopenia Code(s): D69.6 - THROMBOCYTOPENIA, UNSPECIFIED Status: Acute (9) UTI (urinary tract infection) Status: Acute (10) Anemia of renal disease Code(s): N18.9 - CHRONIC KIDNEY DISEASE, UNSPECIFIED; D63.1 - ANEMIA IN CHRONIC KIDNEY DISEASE Status: Chronic (11) DM type 2 (diabetes mellitus, type 2) Status: Chronic (12) HLD (hyperlipidemia) Code(s): E78.5 - HYPERLIPIDEMIA, UNSPECIFIED Status: Chronic (13) HTN (hypertension) Code(s): I10 - ESSENTIAL (PRIMARY) HYPERTENSION Status: Chronic (14) Hypothyroidism Code(s): E03.9 - HYPOTHYROIDISM, UNSPECIFIED Status: Chronic (15) Nephrotic syndrome Code(s): N04.9 - NEPHROTIC SYNDROME WITH UNSPECIFIED MORPHOLOGIC CHANGES Status: Chronic (16) Obesity (BMI 30.0-34.9) Code(s): E66.9 - OBESITY, UNSPECIFIED Status: Chronic (17) Tobacco abuse Code(s): Z72.0 - TOBACCO USE Status: Chronic (18) NSTEMI (non-ST elevated myocardial infarction) Code(s): I21.4 - NON-ST ELEVATION (NSTEMI) MYOCARDIAL INFARCTION Status: Acute - Plan cont current plan of care, continue antibiotics, respiratory therapy * continue rocephin and azithromycin, pneumonia is improving * continue heparin drip, will dc later today and start lovenox 40 mg sc daily, will add plavix if stress test negative, cardiology on case * continue valtesa for high potassium * medication reviewed as below * symptomatic treatment * will assess for her need for home oxygen. Review of Systems - Review of Systems ENT: negative: Ear Pain, Ear Discharge, Nose Pain, Nose Discharge, Nose Congestion, Mouth Pain, Mouth Swelling, Throat Pain, Throat Swelling, Other Respiratory: negative: Cough, Dry, Shortness of Breath, Hemoptysis, SOB with Excertion, Pleuritic Pain, Sputum, Wheezing Cardiovascular: negative: chest pain, palpitations, orthopnea, paroxysmal nocturnal dyspnea, edema, light headedness, other Gastrointestinal: negative: Nausea, Vomiting, Abdominal Pain, Diarrhea, Constipation, Melena, Hematochezia, Other Genitourinary: negative: Dysuria, Frequency, Incontinence, Hematuria, Retention , Other Musculoskeletal: negative: Neck Pain, Shoulder Pain, Arm Pain, Back Pain, Hand Pain, Leg Pain, Foot Pain, Other Skin: negative: Rash, Lesions, Sascha, Bruising, Other - Medications/Allergies Allergies/Adverse Reactions: Allergies Allergy/AdvReac Type Severity Reaction Status Date / Time codeine Allergy Verified 09/25/18 12:44 meperidine HCl [From Demerol] Allergy Verified 09/25/18 12:44 Penicillins Allergy Verified 09/25/18 12:44 sulfamethoxazole Allergy Verified 09/25/18 12:44 [From Bactrim] trimethoprim [From Bactrim] Allergy Verified 09/25/18 12:44 Medications: Current Medications Acetaminophen (Tylenol) 650 mg PO Q4H PRN PRN Reason: Headache/Fever/Mild Pain (1-3) Last Admin: 09/28/18 08:13 Dose: 650 mg Albuterol/Ipratropium (Duoneb) 3 ml NEB [id number] PRN PRN Reason: SOB &/or Wheezing Last Admin: 09/28/18 05:48 Dose: 3 ml Amlodipine Besylate (Norvasc) 10 mg PO DAILY [facility] Last Admin: 09/27/18 08:43 Dose: 10 mg Artificial Tears (Tears Naturale) 2 drop EA EYE PRN PRN PRN Reason: Dry Eyes Aspirin (Aspirin Chewable) 162 mg PO DAILY [facility] Last Admin: 09/27/18 08:43 Dose: 162 mg Atorvastatin Calcium (Lipitor) 40 mg PO HS [facility] Last Admin: 09/27/18 20:52 Dose: 40 mg Bisacodyl (Dulcolax) 10 mg [place] DAILYPRN PRN PRN Reason: Constipation Calcium Carbonate (Tums) 1,000 mg PO Q4H PRN PRN Reason: Heartburn or Indigestion Calcium/Vitamin D (Caltrate 600 + Vit D) 1 tab PO BID-WM [facility] Last Admin: 09/27/18 17:11 Dose: 1 tab Dextrose/Water (Dextrose 50%) 25 gm SLOW IVP PRN PRN PRN Reason: Hypoglycemia Epoetin Manny (Procrit) 10,000 units SC Q7D [facility] Famotidine (Pepcid) 20 mg PO DAILY [facility] Last Admin: 09/27/18 08:44 Dose: 20 mg Ferrous Sulfate (Feosol) 325 mg PO QAM-[facility] Last Admin: 09/27/18 08:42 Dose: 325 mg Fish Oil (Fish Oil) 1,000 mg PO DAILY [facility] Last Admin: 09/27/18 08:44 Dose: 1,000 mg Glucagon (Glucagon) 1 mg IM PRN PRN PRN Reason: Hypoglycemia Heparin Sodium (Porcine) (Heparin 1,000 Units/Ml (10 Ml)) 0 units SLOW IVP ASDIR [facility]; Protocol Last Admin: 09/28/18 06:37 Dose: 2,400 unit Hydralazine HCl (Apresoline) 10 mg SLOW IVP Q4H PRN PRN Reason: SBP Greater Than 170 Azithromycin 500 mg/ Sodium (Chloride) 250 mls @ 250 mls/hr IVPB 1000 [facility] Last Admin: 09/27/18 09:27 Dose: 250 mls Ceftriaxone Sodium 1 gm/ (Sodium Chloride) 100 mls @ 200 mls/hr IVPB 0900 [facility] Last Admin: 09/28/18 08:13 Dose: 100 mls Dextrose/Water (D5w) 1,000 mls @ 0 mls/hr IV .Q0M PRN PRN Reason: Hypoglycemia Heparin Sodium/Dextrose (Heparin 25,000 Units/D5w 500 Ml) 500 mls @ 0 mls/hr IVPB INF [facility]; Protocol Last Admin: 09/28/18 01:17 Dose: 500 mls Ferric Sodium Gluconate Complex 125 mg/ Sodium Chloride 110 mls @ 110 mls/hr IVPB 1000 [facility] Stop: 09/28/18 13:00 Insulin Human Lispro (Humalog) 0 units SC .MODERATE SLIDING SC PRN PRN Reason: Moderate Correctional Scale Last Admin: 09/27/18 17:11 Dose: 2 unit Insulin Human Lispro (Humalog) 0 units SC .BEDTIME SLIDING SC PRN PRN Reason: Bedtime Correctional Scale Last Admin: 09/27/18 20:55 Dose: 2 unit Levothyroxine Sodium (Synthroid) 175 mcg PO 0600 [facility] Last Admin: 09/28/18 07:38 Dose: Not Given Loperamide HCl (Imodium) 2 mg PO PRN PRN PRN Reason: Diarrhea/Loose Stools Loratadine (Claritin) 10 mg PO DAILYPRN PRN PRN Reason: Sinus Symptoms Metoprolol Tartrate (Lopressor) 25 mg PO BID [facility] Last Admin: 09/27/18 20:52 Dose: 25 mg Mineral Oil/White Petrolatum (Eucerin Cream) 0 gm TOP BIDPRN PRN PRN Reason: Dry Skin Mometasone Furoate/Formoterol Fumar (Dulera 200 Mcg/5 Mcg Inhaler) 2 puff INH BID-RT [facility] Last Admin: 09/28/18 06:40 Dose: 2 puff Nitroglycerin (Nitro-Bid 2% Ointment) 0.5 inch TOP Q6H PRN PRN Reason: Chest Pain Ondansetron HCl (Zofran Odt) 4 mg PO Q6H PRN PRN Reason: Nausea/Vomiting Ondansetron HCl (Zofran) 4 mg IVP Q6H PRN PRN Reason: Nausea/Vomiting Last Admin: 09/26/18 14:16 Dose: 4 mg Veltassa (Patiromer) 8.4g Oral Suspension 0 each PO DAILY [facility] Senna/Docusate Sodium (Senokot S) 2 tab PO BID PRN PRN Reason: Constipation Sevelamer Carbonate (Renvela) 800 mg PO TID-[facility] Last Admin: 09/27/18 17:11 Dose: 800 mg Sodium Bicarbonate (Bicarbonate, Sodium) 650 mg PO BID [facility] Last Admin: 09/27/18 20:52 Dose: 650 mg Sodium Chloride ([place] Nasal [place] 0.65%) 0 ml EA NARE QIDPRN PRN PRN Reason: Nasal Congestion Throat Lozenges (Cepastat Lozenges) 1 aide PO Q2H PRN PRN Reason: Sore Throat Zolpidem Tartrate (Ambien) 5 mg PO HSPRN PRN PRN Reason: Insomnia
[2018-09-28] MEDS ORDERED: Iron, Sodium Ferric Gluconate 125 MG in Sodium Chloride 0.9% 100 ML IVPB SCH (10:00)
[2018-09-28] MEDS: Azithromycin 500 MG in Sodium Chloride 0.9% 250 ML 250 ML IVPB SCH (11:49)
[2018-09-28] MEDS: VELTASSA 8.4 GM PO SCH (11:50)
[2018-09-28] MEDS: Famotidine 20 MG TAB PO SCH (11:51)
[2018-09-28] MEDS: Amlodipine 10 MG TAB PO SCH (11:51)
[2018-09-28] MEDS: Sodium Bicarbonate Tab 325 MG TAB PO SCH ×2 (11:51→20:30)
[2018-09-28] MEDS: Fish Oil 1,000 MG CAP PO SCH (11:51)
[2018-09-28] MEDS: Calcium Carbonate + Vit D 1 TAB PO SCH ×2 (11:52→16:54)
[2018-09-28] MEDS: Sevelamer Carbonate 800 MG TAB PO SCH ×3 (11:52→16:54)
[2018-09-28] MEDS: Metoprolol Tartrate 25 MG TAB PO SCH ×2 (11:52→20:30)
[2018-09-28] MEDS: Ferrous Sulfate 325 MG TAB PO SCH (11:52)
--- NOTE | 2018-09-28 12:26 | NM ---
CARDIAC SPECT: CLINICAL HISTORY: 58-year-old female with increased troponins, TIA, COPD, asthma, hypertension, diabetes, dyslipidemia, smoker. TECHNIQUE: A myocardial perfusion scan was performed using the single isotope one day protocol with technetium-9 9m sestamibi. 10 mCi were injected intravenously for the rest exam followed by 32 mCi for the stress exam. Pharmacologic stress with Lexiscan was monitored and interpreted by Dr. Lester. FINDINGS: Homogeneous tracer distribution is seen in the myocardial segments on stress and rest images without fixed or reversible defects. GATED SPECT LVEF: 55%. WALL MOTION EXAM: Normal. IMPRESSION: Normal myocardial perfusion scan. POS: JOAQUÍN
[2018-09-28] MEDS ORDERED: Regadenoson 0.4 MG/5 ML SYRINGE ONE (13:50)
--- NOTE | 2018-09-28 18:26 | PRG ---
DATE OF SERVICE: 09/28/2018 SUBJECTIVE: Patient was seen and examined at bedside and overnight events noted. Patient denies any shortness of breath or chest pain or palpitation. No history of nausea or vomiting or diarrhea or f ever or chills or cramps. OBJECTIVE: GENERAL: This is a well-built female in no apparent distress. VITAL SIGNS: Temperature 98.1, pulse 87, respiratory rate 18, blood pressure 155/67. HEENT: Atraumatic, normocephalic. Oral mucosa is moist. NECK: Supple. CARDIOVASCULAR: S1, S2 heard. Rate and rhythm regular. RESPIRATORY: Clear to auscultation. GASTROINTESTINAL: Abdomen is soft. MUSCULOSKELETAL: No tenderness. No edema. DERMATOLOGIC: No skin rash. NEUROLOGIC: Alert and awake and oriented x3. No focal neurologic deficits. Moving all the extremiti es. PSYCHIATRIC: Mood and affect normal. LABORATORY DATA: Potassium is 5.4, BUN is 49, creatinine is 2.3. ASSESSMENT AND PLAN: 1. Acute kidney injury on chronic kidney stage IV. Renal function is stable. 2. Edema. 3. Proteinuria. 4. Hyperkalemia, better, stable. 5. Diabetic nephropathy. 6. Monitor renal function. Avoid nephrotoxins.
[2018-09-28] MEDS: Atorvastatin Calcium 40 MG TAB PO SCH (20:30)
[2018-09-29 03:09] LABS: #Eosinphils 0.1 thou/uL (0.0-0.7); #Lymphocytes 0.9 thou/uL (1.20-3.40); #Monocytes 0.3 thou/uL (0.11-0.59); #Neutrophils 4.1 thou/uL (1.40-6.50); %Basophils 0.5 % (0.0-1.0); %Eosinophils 1.9 % (0.0-10.0); %Lymphocytes 16.9 % (21.0-51.0); %Monocytes 5.6 % (0.0-10.0); Hemoglobin 7.2 g/dL (12.0-16.0); Mean Corpuscular HGB CONC 32.9 g/dL (32.0-36.0); Mean Platelet Volume 7.7 fL (7.4-10.4); Platelet Count 128 thou/uL (130-400); RBC Distribution Width 15.3 % (11.5-14.5); Red Blood Cell (RBC) Count 2.49 mill/uL (4.20-5.40); White Blood Cell (WBC) Count 5.5 thou/uL (4.8-10.8)
[2018-09-29 03:10] LABS: Hemoglobin 7.1 g/dL (12.0-16.0); Platelet Count 123 thou/uL (130-400)
[2018-09-29 04:07] LABS: Anion Gap 12 mmol/L (10-20); BUN (Urea Nitrogen) 43 mg/dL (9.8-20.1); Calc. Creatinine Clearance 37 mL/min (70-130); Calcium 9.9 mg/dL (7.8-10.44); Carbon Dioxide 22 mmol/L (22-29); Chloride 111 mmol/L (98-107); Estimated GFR-MDRD 25; Glucose 126 mg/dL (70-105); Potassium 5.3 mmol/L (3.5-5.1); Sodium 140 mmol/L (136-145)
[2018-09-29] MEDS: Levothyroxine 175 MCG TAB PO SCH (06:23)
[2018-09-29] MEDS: Mometasone/Formoterol 120 PUFF INHALER INH SCH ×2 (06:40→19:22)
[2018-09-29] MEDS: Sodium Bicarbonate Tab 325 MG TAB PO SCH ×2 (09:46→21:49)
[2018-09-29] MEDS: Clopidogrel Bisulfate 75 MG TAB PO SCH (09:46)
[2018-09-29] MEDS: Famotidine 20 MG TAB PO SCH (09:47)
[2018-09-29] MEDS: Fish Oil 1,000 MG CAP PO SCH (09:47)
[2018-09-29] MEDS: Ferrous Sulfate 325 MG TAB PO SCH (09:51)
[2018-09-29] MEDS: Sevelamer Carbonate 800 MG TAB PO SCH ×3 (09:51→18:05)
[2018-09-29] MEDS: Amlodipine 10 MG TAB PO SCH (09:52)
[2018-09-29] MEDS: Calcium Carbonate + Vit D 1 TAB PO SCH ×2 (09:52→18:06)
[2018-09-29] MEDS: Metoprolol Tartrate 25 MG TAB PO SCH ×2 (09:54→21:49)
[2018-09-29] MEDS: Enoxaparin Sodium 40 MG/0.4 ML SYRINGE SC SCH (09:54)
[2018-09-29] MEDS: VELTASSA 8.4 GM PO SCH (10:14)
--- NOTE | 2018-09-29 10:28 | PDOC.PN ---
- Subjective Encounter Start Date: 09/29/18 Encounter Start Time: 07:15 Patient seen and examined. No new complaints. No overnight events pt is feeling weak, no chest pain - Objective Resuscitation Status: Resuscitation Status FULL:Full Resuscitation MAR Reviewed: Yes Vital Signs & Weight: Vital Signs (12 hours) Temp Pulse Resp BP BP Pulse Ox 09/29/18 09:52 80 151/67 H 09/29/18 07:54 97.9 F 57 L 16 154/86 H 97 09/29/18 06:40 92 16 09/29/18 06:34 97 09/29/18 06:31 92 16 09/29/18 04:00 98.7 F 92 19 166/74 H 95 09/29/18 02:41 90 L 09/28/18 23:58 98.2 F 80 19 145/67 H 94 L Weight Weight 174 lb I&O: 09/28/18 09/29/18 09/30/18 06:59 06:59 06:59 Intake Total 2155 1100 Output Total 1200 Balance 2155 -100 Result Diagrams: 09/29/18 02:53 09/29/18 02:53 Additional Labs: Accuchecks 09/29/18 09/28/18 09/28/18 06:00 20:07 16:46 POC Glucose 133 H 183 H 169 H EKG Reviewed by me: Yes (nsr) Phys Exam - Physical Examination Constitutional: NAD HEENT: PERRLA, moist MMs, sclera anicteric Neck: no JVD, supple Respiratory: no wheezing, no rales, no rhonchi Cardiovascular: RRR, no significant murmur, no rub Gastrointestinal: soft, non-tender, no distention, positive bowel sounds Musculoskeletal: no edema, pulses present Neurological: non-focal, normal sensation, moves all 4 limbs Psychiatric: normal affect, A&O x 3 Skin: no rash, normal turgor Dx/Plan (1) Acute respiratory failure with hypoxia Code(s): J96.01 - ACUTE RESPIRATORY FAILURE WITH HYPOXIA Status: Acute Comment: she is not on home oxygen, will assess for her need for home oxygen (2) CKD (chronic kidney disease) stage 4, GFR 15-29 ml/min Code(s): N18.4 - CHRONIC KIDNEY DISEASE, STAGE 4 (SEVERE) Status: Acute Comment: stable renal function, creatinine is better today, nephrology following (3) COPD exacerbation Code(s): J44.1 - CHRONIC OBSTRUCTIVE PULMONARY DISEASE W (ACUTE) EXACERBATION Status: Acute Comment: not stable and seems improved (4) Community acquired bacterial pneumonia Code(s): J15.9 - UNSPECIFIED BACTERIAL PNEUMONIA Status: Acute Comment: will change antibiotic to pO levaquin (5) Demand ischemia of myocardium Code(s): I24.8 - OTHER FORMS OF ACUTE ISCHEMIC HEART DISEASE Status: Acute (6) Hyperkalemia Code(s): E87.5 - HYPERKALEMIA Status: Acute Comment: stable and better than before (7) Metabolic acidosis Code(s): E87.2 - ACIDOSIS Status: Acute Comment: on sodium bicarbonate PO (8) Thrombocytopenia Code(s): D69.6 - THROMBOCYTOPENIA, UNSPECIFIED Status: Acute (9) UTI (urinary tract infection) Status: Acute (10) Anemia of renal disease Code(s): N18.9 - CHRONIC KIDNEY DISEASE, UNSPECIFIED; D63.1 - ANEMIA IN CHRONIC KIDNEY DISEASE Status: Chronic (11) DM type 2 (diabetes mellitus, type 2) Status: Chronic (12) HLD (hyperlipidemia) Code(s): E78.5 - HYPERLIPIDEMIA, UNSPECIFIED Status: Chronic (13) HTN (hypertension) Code(s): I10 - ESSENTIAL (PRIMARY) HYPERTENSION Status: Chronic (14) Hypothyroidism Code(s): E03.9 - HYPOTHYROIDISM, UNSPECIFIED Status: Chronic (15) Nephrotic syndrome Code(s): N04.9 - NEPHROTIC SYNDROME WITH UNSPECIFIED MORPHOLOGIC CHANGES Status: Chronic (16) Obesity (BMI 30.0-34.9) Code(s): E66.9 - OBESITY, UNSPECIFIED Status: Chronic (17) Tobacco abuse Code(s): Z72.0 - TOBACCO USE Status: Chronic (18) NSTEMI (non-ST elevated myocardial infarction) Code(s): I21.4 - NON-ST ELEVATION (NSTEMI) MYOCARDIAL INFARCTION Status: Acute Comment: stress test negative, will treat medically, no cardiac cath for now given renal function - Plan cont current plan of care, continue antibiotics, respiratory therapy * transfuse 1 unit of PRBC for symptomatic anemia * continue medical therapy for nstemi * evaluate for home oxygen * repeat labs tomorrow * medication reviewed as below * symptomatic treatment * expecting discharge soon. Review of Systems - Review of Systems ENT: negative: Ear Pain, Ear Discharge, Nose Pain, Nose Discharge, Nose Congestion, Mouth Pain, Mouth Swelling, Throat Pain, Throat Swelling, Other Respiratory: negative: Cough, Dry, Shortness of Breath, Hemoptysis, SOB with Excertion, Pleuritic Pain, Sputum, Wheezing Cardiovascular: negative: chest pain, palpitations, orthopnea, paroxysmal nocturnal dyspnea, edema, light headedness, other Gastrointestinal: negative: Nausea, Vomiting, Abdominal Pain, Diarrhea, Constipation, Melena, Hematochezia, Other Genitourinary: negative: Dysuria, Frequency, Incontinence, Hematuria, Retention , Other Musculoskeletal: negative: Neck Pain, Shoulder Pain, Arm Pain, Back Pain, Hand Pain, Leg Pain, Foot Pain, Other Skin: negative: Rash, Lesions, Sascha, Bruising, Other - Medications/Allergies Allergies/Adverse Reactions: Allergies Allergy/AdvReac Type Severity Reaction Status Date / Time codeine Allergy Verified 09/25/18 12:44 meperidine HCl [From Demerol] Allergy Verified 09/25/18 12:44 Penicillins Allergy Verified 09/25/18 12:44 sulfamethoxazole Allergy Verified 09/25/18 12:44 [From Bactrim] trimethoprim [From Bactrim] Allergy Verified 09/25/18 12:44 Medications: Current Medications Acetaminophen (Tylenol) 650 mg PO Q4H PRN PRN Reason: Headache/Fever/Mild Pain (1-3) Last Admin: 09/28/18 20:30 Dose: 650 mg Albuterol/Ipratropium (Duoneb) 3 ml NEB [id number] PRN PRN Reason: SOB &/or Wheezing Last Admin: 09/29/18 06:31 Dose: 3 ml Amlodipine Besylate (Norvasc) 10 mg PO DAILY [facility] Last Admin: 09/29/18 09:52 Dose: 10 mg Artificial Tears (Tears Naturale) 2 drop EA EYE PRN PRN PRN Reason: Dry Eyes Aspirin (Aspirin Chewable) 162 mg PO DAILY [facility] Last Admin: 09/29/18 09:47 Dose: 162 mg Atorvastatin Calcium (Lipitor) 40 mg PO HS [facility] Last Admin: 09/28/18 20:30 Dose: 40 mg Bisacodyl (Dulcolax) 10 mg [place] DAILYPRN PRN PRN Reason: Constipation Calcium Carbonate (Tums) 1,000 mg PO Q4H PRN PRN Reason: Heartburn or Indigestion Calcium/Vitamin D (Caltrate 600 + Vit D) 1 tab PO BID-[facility] Last Admin: 09/29/18 09:52 Dose: 1 tab Clopidogrel Bisulfate (Plavix) 75 mg PO DAILY [facility] Last Admin: 09/29/18 09:46 Dose: 75 mg Dextrose/Water (Dextrose 50%) 25 gm SLOW IVP PRN PRN PRN Reason: Hypoglycemia Enoxaparin Sodium (Lovenox) 40 mg SC 0900 [facility] Last Admin: 09/29/18 09:54 Dose: 40 mg Epoetin Manny (Procrit) 10,000 units SC Q7D [facility] Last Admin: 09/28/18 11:50 Dose: 10,000 units Famotidine (Pepcid) 20 mg PO DAILY [facility] Last Admin: 09/29/18 09:47 Dose: 20 mg Ferrous Sulfate (Feosol) 325 mg PO QAM-[facility] Last Admin: 09/29/18 09:51 Dose: 325 mg Fish Oil (Fish Oil) 1,000 mg PO DAILY [facility] Last Admin: 09/29/18 09:47 Dose: 1,000 mg Glucagon (Glucagon) 1 mg IM PRN PRN PRN Reason: Hypoglycemia Hydralazine HCl (Apresoline) 10 mg SLOW IVP Q4H PRN PRN Reason: SBP Greater Than 170 Dextrose/Water (D5w) 1,000 mls @ 0 mls/hr IV .Q0M PRN PRN Reason: Hypoglycemia Insulin Human Lispro (Humalog) 0 units SC .MODERATE SLIDING SC PRN PRN Reason: Moderate Correctional Scale Last Admin: 09/27/18 17:11 Dose: 2 unit Insulin Human Lispro (Humalog) 0 units SC .BEDTIME SLIDING SC PRN PRN Reason: Bedtime Correctional Scale Last Admin: 09/27/18 20:55 Dose: 2 unit Levofloxacin (Levaquin) 750 mg PO Q2DAYS [facility] Last Admin: 09/29/18 09:54 Dose: 750 mg Levothyroxine Sodium (Synthroid) 175 mcg PO 0600 [facility] Last Admin: 09/29/18 06:23 Dose: 175 mcg Loperamide HCl (Imodium) 2 mg PO PRN PRN PRN Reason: Diarrhea/Loose Stools Loratadine (Claritin) 10 mg PO DAILYPRN PRN PRN Reason: Sinus Symptoms Metoprolol Tartrate (Lopressor) 25 mg PO BID [facility] Last Admin: 09/29/18 09:54 Dose: 25 mg Mineral Oil/White Petrolatum (Eucerin Cream) 0 gm TOP BIDPRN PRN PRN Reason: Dry Skin Mometasone Furoate/Formoterol Fumar (Dulera 200 Mcg/5 Mcg Inhaler) 2 puff INH BID-RT [facility] Last Admin: 09/29/18 06:40 Dose: 2 puff Nitroglycerin (Nitro-Bid 2% Ointment) 0.5 inch TOP Q6H PRN PRN Reason: Chest Pain Ondansetron HCl (Zofran Odt) 4 mg PO Q6H PRN PRN Reason: Nausea/Vomiting Ondansetron HCl (Zofran) 4 mg IVP Q6H PRN PRN Reason: Nausea/Vomiting Last Admin: 09/26/18 14:16 Dose: 4 mg Veltassa (Patiromer) 8.4g Oral Suspension 0 each PO DAILY [facility] Last Admin: 09/29/18 10:14 Dose: 1 each Senna/Docusate Sodium (Senokot S) 2 tab PO BID PRN PRN Reason: Constipation Sevelamer Carbonate (Renvela) 800 mg PO TID-[facility] Last Admin: 09/29/18 09:51 Dose: 800 mg Sodium Bicarbonate (Bicarbonate, Sodium) 650 mg PO BID [facility] Last Admin: 09/29/18 09:46 Dose: 650 mg Sodium Chloride ([place] Nasal [place] 0.65%) 0 ml EA NARE QIDPRN PRN PRN Reason: Nasal Congestion Throat Lozenges (Cepastat Lozenges) 1 aide PO Q2H PRN PRN Reason: Sore Throat Zolpidem Tartrate (Ambien) 5 mg PO HSPRN PRN PRN Reason: Insomnia
[2018-09-29] MEDS ORDERED: Furosemide 20 MG/2 ML VIAL SLOW IVP SCH (11:30)
[2018-09-29] MEDS: Sodium Chloride 0.65% Nasal 44 ML BOT EA NARE PRN (13:37)
--- NOTE | 2018-09-29 17:04 | EKG ---
Test Reason : Blood Pressure : / mmHG Vent. Rate : 103 BPM Atrial Rate : 103 BPM P-R Int : 164 ms QRS Dur : 078 ms QT Int : 320 ms P-R-T Axes : 064 025 056 degrees QTc Int : 419 ms Sinus tachycardia Nonspecific ST and T wave abnormality Abnormal ECG Confirmed by KORI FU ([id number]), newspaper or periodical editor SHEREE SILVA ([id number] on 09/29/2018 5:04:17 PM Referred By: Confirmed By:KORI FU
--- NOTE | 2018-09-29 17:32 | PRG ---
DATE OF SERVICE: 09/29/2018 SUBJECTIVE: Patient was seen and examined at bedside and overnight events noted. Patient denies any shortness of breath or chest pain or palpitation. No history of nausea or vomiting or diarrhea or f ever or chills or cramps. OBJECTIVE: GENERAL: This is an elderly female in no apparent distress. VITAL SIGNS: Temperature 98.0, pulse 73, respiratory rate 18, blood pressure 153/70. HEENT: Atraumatic, normocephalic. Oral mucosa is moist. NECK: Supple. CARDIOVASCULAR: S1, S2 heard. Rate and rhythm regular. RESPIRATORY: Clear to auscultation. GASTROINTESTINAL: Abdomen is soft. MUSCULOSKELETAL: No tenderness. No edema. DERMATOLOGIC: No skin rash. NEUROLOGIC: Alert and awake and oriented x3. No focal neurologic deficits. Moving all the extremiti es. PSYCHIATRIC: Mood and affect normal. LABORATORY DATA: Potassium 5.3, BUN 43, creatinine is 2.06. ASSESSMENT AND PLAN: 1. Chronic kidney stage 4, stable. 2. Edema. 3. Proteinuria. 4. Diabetic nephropathy. 5. Hyperkalemia. Limit potassium in the diet. 6. Will follow. No acute indication for dialysis.
[2018-09-29] MEDS: Atorvastatin Calcium 40 MG TAB PO SCH (21:49)
[2018-09-30] MEDS: Levothyroxine 175 MCG TAB PO SCH (05:04)
[2018-09-30] MEDS: Sodium Chloride 0.65% Nasal 44 ML BOT EA NARE PRN (05:04)
[2018-09-30 05:57] LABS: #Eosinphils 0.2 thou/uL (0.0-0.7); #Lymphocytes 1.2 thou/uL (1.20-3.40); #Monocytes 0.3 thou/uL (0.11-0.59); #Neutrophils 3.9 thou/uL (1.40-6.50); %Eosinophils 3.6 % (0.0-10.0); %Lymphocytes 20.9 % (21.0-51.0); %Monocytes 5.5 % (0.0-10.0); Hemoglobin 8.3 g/dL (12.0-16.0); Mean Corpuscular HGB CONC 32.6 g/dL (32.0-36.0); Mean Corpuscular Hemoglobin 28.6 pg (27.0-31.0); Mean Corpuscular Volume 87.5 fL (78.0-98.0); Mean Platelet Volume 7.8 fL (7.4-10.4); Platelet Count 124 thou/uL (130-400); RBC Distribution Width 14.4 % (11.5-14.5); Red Blood Cell (RBC) Count 2.89 mill/uL (4.20-5.40); White Blood Cell (WBC) Count 5.5 thou/uL (4.8-10.8)
[2018-09-30 06:13] LABS: Anion Gap 12 mmol/L (10-20); BUN (Urea Nitrogen) 37 mg/dL (9.8-20.1); Calc. Creatinine Clearance 41 mL/min (70-130); Calcium 10.3 mg/dL (7.8-10.44); Carbon Dioxide 23 mmol/L (22-29); Chloride 108 mmol/L (98-107); Estimated GFR-MDRD 27; Glucose 123 mg/dL (70-105); Potassium 4.7 mmol/L (3.5-5.1); Sodium 138 mmol/L (136-145)
[2018-09-30] MEDS: Mometasone/Formoterol 120 PUFF INHALER INH SCH (06:53)
[2018-09-30] MEDS: Enoxaparin Sodium 40 MG/0.4 ML SYRINGE SC SCH (08:47)
[2018-09-30] MEDS: Calcium Carbonate + Vit D 1 TAB PO SCH (08:47)
[2018-09-30] MEDS: Sodium Bicarbonate Tab 325 MG TAB PO SCH (08:48)
[2018-09-30] MEDS: Amlodipine 10 MG TAB PO SCH (08:48)
[2018-09-30] MEDS: Fish Oil 1,000 MG CAP PO SCH (08:48)
[2018-09-30] MEDS: Ferrous Sulfate 325 MG TAB PO SCH (08:48)
[2018-09-30] MEDS: Clopidogrel Bisulfate 75 MG TAB PO SCH (08:48)
[2018-09-30] MEDS: Famotidine 20 MG TAB PO SCH (08:48)
[2018-09-30] MEDS: Metoprolol Tartrate 25 MG TAB PO SCH (08:49)
[2018-09-30] MEDS: Sevelamer Carbonate 800 MG TAB PO SCH ×2 (08:49→12:08)
[2018-09-30] MEDS: VELTASSA 8.4 GM PO SCH (08:57)
--- NOTE | 2018-09-30 10:26 | EKG ---
Test Reason : STAT Blood Pressure : / mmHG Vent. Rate : 096 BPM Atrial Rate : 096 BPM P-R Int : 178 ms QRS Dur : 090 ms QT Int : 348 ms P-R-T Axes : 073 052 024 degrees QTc Int : 439 ms Normal sinus rhythm Nonspecific ST abnormality Abnormal ECG When compared with ECG of 25-SEP-2018 08:34, (Unconfirmed) Nonspecific T wave abnormality, improved in Lateral leads Confirmed by DR. Norman RATLIFF ([id number]) on 09/30/2018 10:25:58 AM Referred By: FABIAN Confirmed By:DR. Norman RATLIFF
[2018-09-30 12:01] VITALS: TEMP 98.5
[2018-09-30] MEDS: HumaLOG 300 UNITS/3 ML VIAL SC PRN (12:08)
[2018-09-30 12:13] VITALS: BP 163/71
--- NOTE | 2018-09-30 13:02 | PRG ---
DATE OF SERVICE: 09/30/2018 SUBJECTIVE: Patient was seen and examined at bedside and overnight events noted. Patient denies any shortness of breath or chest pain or palpitation. No history of nausea or vomiting or diarrhea or f ever or chills or cramps. OBJECTIVE: GENERAL: This is a well-built female, in no apparent distress. VITAL SIGNS: Temperature 98.9, pulse 86, respirations 16, blood pressure 162/71. HEENT: Atraumatic, normocephalic, oral mucosa is moist. NECK: Supple. CARDIOVASCULAR: S1, S2 heard, rate and rhythm regular. RESPIRATORY: Clear to auscultation. GASTROINTESTINAL: Abdomen is soft. MUSCULOSKELETAL: No tenderness, no edema. DERMATOLOGIC: No skin rash. NEUROLOGIC: Alert and awake and oriented x3, no focal neurologic deficits. Moving all the extremiti es. PSYCHIATRIC: Mood and affect normal. LABORATORY DATA: Potassium is 4.7, BUN 37, creatinine 1.8. ASSESSMENT AND PLAN: 1. Chronic kidney disease stage 4, stable. 2. Edema. 3. Proteinuria with diabetic nephropathy. 4. Hyperkalemia, better. 5. Labs are stable, okay to discharge home from Nephrology standpoint.
--- NOTE | 2018-09-30 13:46 | PDOC.PN ---
- Subjective Encounter Start Date: 09/30/18 Encounter Start Time: 13:44 Ms. Alex was seen today in follow-up of Pneumonia. She says she feels better. She wants to go home. - Objective Resuscitation Status: Resuscitation Status FULL:Full Resuscitation MAR Reviewed: Yes Vital Signs & Weight: Vital Signs (12 hours) Temp Pulse Pulse Pulse Resp BP BP 09/30/18 12:00 98.5 F 73 16 09/30/18 09:43 77 84 163/71 H 163/83 H 09/30/18 08:48 86 09/30/18 08:00 09/30/18 07:53 98.9 F 86 16 09/30/18 06:54 09/30/18 06:53 88 16 09/30/18 03:52 97.9 F 88 16 BP Pulse Ox Pulse Ox Pulse Ox 09/30/18 12:00 144/67 H 92 L 09/30/18 09:43 89 L 95 09/30/18 08:48 09/30/18 08:00 92 L 09/30/18 07:53 162/71 H 92 L 09/30/18 06:54 90 L 09/30/18 06:53 09/30/18 03:52 162/71 H 91 L Weight Weight 174 lb I&O: 09/29/18 09/30/18 10/01/18 06:59 06:59 06:59 Intake Total 1100 1610 240 Output Total 1200 Balance -100 1610 240 Result Diagrams: 09/30/18 05:44 09/30/18 05:44 Additional Labs: Accuchecks 09/30/18 09/29/18 09/29/18 05:24 21:49 17:20 POC Glucose 135 H 141 H 112 H Phys Exam - Physical Examination HEENT: PERRLA Respiratory: wheezing present + wheezing and rhonchi, scattered Cardiovascular: RRR, no significant murmur, no rub Gastrointestinal: soft, non-tender, no distention, positive bowel sounds Musculoskeletal: no edema Dx/Plan (1) Community acquired bacterial pneumonia Code(s): J15.9 - UNSPECIFIED BACTERIAL PNEUMONIA Status: Acute Comment: will change antibiotic to pO levaquin (2) Acute on chronic respiratory failure with hypoxemia Code(s): J96.21 - ACUTE AND CHRONIC RESPIRATORY FAILURE WITH HYPOXIA Status: Acute (3) COPD exacerbation Code(s): J44.1 - CHRONIC OBSTRUCTIVE PULMONARY DISEASE W (ACUTE) EXACERBATION Status: Acute Comment: not stable and seems improved (4) HTN (hypertension) Code(s): I10 - ESSENTIAL (PRIMARY) HYPERTENSION Status: Chronic (5) Hypothyroidism Code(s): E03.9 - HYPOTHYROIDISM, UNSPECIFIED Status: Chronic (6) Tobacco abuse Code(s): Z72.0 - TOBACCO USE Status: Chronic - Plan * Pneumonia- clinically improved * COPD- also improved * stable for discharge home today.
--- NOTE | 2018-09-30 22:58 | DIS ---
DATE OF ADMISSION: 09/25/2018 DATE OF DISCHARGE: 09/30/2018 PRIMARY CARE PHYSICIAN: [facility]. DISCHARGE DISPOSITION: Home. PRIMARY DISCHARGE DIAGNOSES: 1. Community-acquired pneumonia. 2. Acute on chronic respiratory failure with hypoxemia secondary to #1. 3. Chronic obstructive pulmonary disease exacerbation. 4. Non-ST segment myocardial infarction type 2 due to demand ischemia from above. 5. Hypothyroidism. 6. Tobacco abuse. 7. Chronic kidney disease stage 3. DISCHARGE MEDICATIONS: Include sodium bicarbonate 650 mg twice daily, Renvela 800 mg t.i.d., Dulera 200/5 two puffs twice daily, Lopressor 25 mg twice daily, levofloxacin 500 mg every other day, Plavix 75 mg daily, aspirin 81 mg daily, vitamin B complex 1 tablet daily, lovastatin 40 mg daily, levothyr oxine 175 mcg daily, Lasix 40 mg every other day, fish oil 1200 mg twice daily, vitamin B12 1000 mcg daily, vitamin D3 1000 mg twice daily, amlodipine 10 mg daily and albuterol nebs p.r.n. PROCEDURES DONE DURING THE ADMISSION: The patient had a bilateral lower extremity venous Dopplers, w hich were negative. A V/Q scan which was low probability for pulmonary embolism and echocardiogram t hat demonstrated an ejection fraction of 55%-60%. The left atrium was moderately dilated. The aorti c valve was sclerotic with normal excursion. The patient had a nuclear stress test which was normal. CODE STATUS: FULL CODE. ALLERGIES: CODEINE, MEPERIDINE, PENICILLIN, SULFAMETHOXAZOLE and TRIMETHOPRIM. HOSPITAL COURSE: Ms. Alex is a pleasant 58-year-old female who presented to the emergency room co mplaining of shortness of breath and cough. She was evaluated in the ER and found to have an infiltr ate in the right lung base accompanied by small pleural effusion. It was also noted that her troponi n was slightly elevated. She was admitted for acute respiratory failure with hypoxemia. She was acosta luated by Cardiology due to the elevated troponins as well as Nephrology and Pulmonology. It was fel t that the elevated troponin was likely demand ischemia from the pneumonia and COPD exacerbation. St ress test was negative as well as ventilation perfusion scan. She was also evaluated by Nephrology d ue to the chronic kidney disease as she had hyperkalemia at the time of admission. Her medications w ere adjusted by the drilling and production superintendent and Renvela was added as well as sodium bicarbonate. She did qualif y for home oxygen; however, due to her unfunded status, she will need to apply through [facility] assistance to see if there is any way that she can get assistance with paying for the oxygen as an outpatient. She was also counseled on smoking cessation on several occasions during her hospi alisa stay and after being clinically stable, potassium corrected and improved pulmonary status with re gards to the pneumonia. She was discharged home on 09/30/2018 and she is to have close outpatient fo llowup with her primary care physician.
== END 2018-09-30 15:27 | disposition home or self-care (01) | DRG 193 ==
LOC: ERS 08:28 → 2SE 11:51
PROVIDERS: ADMIT Internal Medicine; ATTEND Internal Medicine
DX: J15.9 Unspecified bacterial pneumonia (principal); J96.21 Acute and chronic respiratory failure with hypoxia; I21.A1 Myocardial infarction type 2; J44.0 Chronic obstructive pulmonary disease with (acute) lower respiratory infection; E87.2 Acidosis; N17.9 Acute kidney failure, unspecified; N18.4 Chronic kidney disease, stage 4 (severe); J44.1 Chronic obstructive pulmonary disease with (acute) exacerbation; E11.22 Type 2 diabetes mellitus with diabetic chronic kidney disease; E87.5 Hyperkalemia; F17.210 Nicotine dependence, cigarettes, uncomplicated; I12.9 Hypertensive chronic kidney disease with stage 1 through stage 4 chronic kidney disease, or unspecified chronic kidney disease; E03.9 Hypothyroidism, unspecified; E78.5 Hyperlipidemia, unspecified; K21.9 Gastro-esophageal reflux disease without esophagitis; D63.1 Anemia in chronic kidney disease; D69.6 Thrombocytopenia, unspecified; E66.9 Obesity, unspecified; Z68.32 Body mass index [BMI] 32.0-32.9, adult; Z88.5 Allergy status to narcotic agent; Z88.0 Allergy status to penicillin; Z88.2 Allergy status to sulfonamides; Z86.73 Personal history of transient ischemic attack (TIA), and cerebral infarction without residual deficits; Z85.41 Personal history of malignant neoplasm of cervix uteri; Z79.82 Long term (current) use of aspirin; Z79.84 Long term (current) use of oral hypoglycemic drugs; Z79.899 Other long term (current) drug therapy
CPT/HCPCS: 36415; 36416; 36430; 71045; 78452; 78582; 80048; 80053; 80061; 80069; 81001; 82553; 82570; 82728; 83540; 83550; 84156; 84439; 84443; 84484; 85014; 85018; 85025; 85049; 85730; 86850; 86900; 86901; 87040; 87086; 87633; 93005; 93010; 93017; 93306; 93970; 94640; 94664; 94760; 96365; 96367; A9500; A9540; A9558; G8978-GP-CN; G8979-GP-CJ; J0456; J0696; J1644; J1650; J1815; J1940; J2405; J2785; J2916; J2920; J7050; J7620; P9016; Q4081

== ENCOUNTER 2018-10-21 01:15 | Inpatient (IN) | payer SELFPAY ==
[2018-10-21] MEDS ORDERED: Lorazepam 2 MG/ML VIAL ONE (01:19)
[2018-10-21] MEDS ORDERED: methylPREDNISolone Sod Succ/PF 125 MG/2 ML VIAL ONE (01:32)
[2018-10-21] MEDS ORDERED: Water For Inject, Bacteriostat 30 ML ONE (01:32)
[2018-10-21] MEDS ORDERED: Albuterol Sulfate 2.5 mg/3 ml Neb ONE (01:33)
[2018-10-21] MEDS ORDERED: Magnesium 2 GM/50 ML BAG (IN WATER) ONE (01:34)
[2018-10-21 01:40] LABS: Actual Bicarbonate (HCO3a) 23.4 mEq/L (22-28); Analyzer IN Cardio ER; CO2 Tension 42.7 mmHg (35.0-45.0); Calcium, Ionized 1.22 mmol/L (1.12-1.30); Carboxyhemoglobin (COHb) 2.3 gm% (0.0-3.0); Hemoglobin (Hb) 9.1 g/dL (12.0-16.0); O2 Tension (PaO2) 119.3 mmHg (80.0-100.0); Potassium - ABG Lab 4.86 mmol/L (3.70-5.30); pH, Arterial 7.36 (7.35-7.45)
[2018-10-21 01:41] LABS: ALV-art Gradient 540.325 (0-20); Puncture Site LRA
[2018-10-21 01:48] LABS: #Eosinphils 0.2 thou/uL (0.0-0.7); #Lymphocytes 1.5 thou/uL (1.20-3.40); #Monocytes 0.3 thou/uL (0.11-0.59); #Neutrophils 3.6 thou/uL (1.40-6.50); %Basophils 0.3 % (0.0-1.0); %Eosinophils 3.7 % (0.0-10.0); %Lymphocytes 26.7 % (21.0-51.0); %Monocytes 5.9 % (0.0-10.0); %Neutrophils 63.4 % (42.0-75.0); Hemoglobin 9.1 g/dL (12.0-16.0); Mean Corpuscular HGB CONC 33.7 g/dL (32.0-36.0); Mean Corpuscular Hemoglobin 30.3 pg (27.0-31.0); Mean Platelet Volume 7.4 fL (7.4-10.4); Platelet Count 148 thou/uL (130-400); RBC Distribution Width 15.9 % (11.5-14.5); Red Blood Cell (RBC) Count 2.99 mill/uL (4.20-5.40); White Blood Cell (WBC) Count 5.7 thou/uL (4.8-10.8)
[2018-10-21 02:06] LABS: ALT (SGPT) 8 U/L (8-55); AST (SGOT) 18 U/L (5-34); Albumin 3.9 g/dL (3.5-5.0); Alkaline Phosphatase 100 U/L (40-150); Anion Gap 13 mmol/L (10-20); BUN (Urea Nitrogen) 23 mg/dL (9.8-20.1); Bilirubin, Total 0.6 mg/dL (0.2-1.2); CK (CPK) 71 U/L (29-168); Calc. Creatinine Clearance 0 mL/min (70-130); Calcium 9.9 mg/dL (7.8-10.44); Carbon Dioxide 24 mmol/L (22-29); Chloride 108 mmol/L (98-107); Estimated GFR-MDRD 27; Globulin 3.9 g/dL (2.4-3.5); Glucose 153 mg/dL (70-105); Potassium 5.1 mmol/L (3.5-5.1); Protein, Total 7.8 g/dL (6.0-8.3); Sodium 140 mmol/L (136-145)
[2018-10-21] MEDS ORDERED: Piperacillin/Tazobactam 4.5 GM VIAL ONE (02:48)
[2018-10-21] MEDS ORDERED: Ondansetron PF 4 MG/2 ML Vial IVP PRN (03:48)
[2018-10-21] MEDS ORDERED: Acetaminophen 325 MG TAB PO PRN (03:48)
[2018-10-21] MEDS ORDERED: VANCOMYCIN IVPB PRN (04:00)
[2018-10-21 04:30] VITALS: BMI 32.9
[2018-10-21] MEDS ORDERED: Albuterol Sulfate 2.5 mg/3 ml Neb NEB PRN (05:58)
--- NOTE | 2018-10-21 08:36 | RAD ---
PORTABLE CHEST DATE: 10/21/2018. PROVIDED CLINICAL HISTORY: Dyspnea. FINDINGS: Comparison 09/25/2018. Cardiac silhouette remains enlarged. Prominence of the pulmonary vasculature and pulmonary interstitium is redemonstrated. Blunting of each costophrenic angle likely reflects b ilateral pleural fluid. There are bibasilar patchy parenchymal opacities. There is no evidence for pneumothorax. IMPRESSION: Cardiomegaly and findings suggesting congestive failure with bilateral pleural effusions. Bibasilar parenchymal opacity may reflect superimposed infectious change or subsegmental atelectasis. POS: [facility]
[2018-10-21] MEDS: Sevelamer Carbonate 800 MG TAB PO SCH ×3 (08:59→17:43)
[2018-10-21] MEDS: Sodium Bicarbonate Tab 325 MG TAB PO SCH ×2 (08:59→20:15)
[2018-10-21] MEDS: Famotidine 20 MG TAB PO SCH (08:59)
[2018-10-21] MEDS: Cefepime 2 GM in Sodium Chloride 0.9% 100 ML IVPB SCH ×2 (09:00→20:15)
[2018-10-21] MEDS ORDERED: Furosemide 40 MG TAB PO SCH (09:00)
[2018-10-21] MEDS: Metoprolol Tartrate 25 MG TAB PO SCH ×2 (09:00→20:14)
[2018-10-21] MEDS: Clopidogrel Bisulfate 75 MG TAB PO SCH (09:00)
[2018-10-21] MEDS: Amlodipine 10 MG TAB PO SCH (09:00)
[2018-10-21] MEDS: Atorvastatin Calcium 10 MG TAB PO SCH (09:00)
[2018-10-21] MEDS: Fish Oil 1,000 MG CAP PO SCH ×2 (09:00→20:14)
[2018-10-21] MEDS: Cyanocobalamin (Vitamin B-12) 1,000 MCG TAB PO SCH (09:01)
[2018-10-21] MEDS: Furosemide 40 MG/4 ML VIAL SLOW IVP SCH (09:09)
[2018-10-21] MEDS: Stress 600 With Zinc 1 TAB PO SCH (09:09)
[2018-10-21] MEDS: Enoxaparin Sodium 40 MG/0.4 ML SYRINGE SC SCH (10:34)
--- NOTE | 2018-10-21 10:40 | PDOC.EVN ---
Event Note - Event Note Event Note: Pt seen and examined. H&P pending. chart reviewed cont IV steroids, ABX,O2,nebs Arrange home o2 to prevent repeated hospitalizations. Feels better B/l wheezes very minimal. will follow
[2018-10-21] MEDS ORDERED: Dextrose 5% in Water 1,000 ML IV PRN (21:35)
[2018-10-21] MEDS ORDERED: Dextrose 50% Abboject 50 ML SYRINGE IVP PRN (21:35)
[2018-10-21] MEDS: HumaLOG 300 UNITS/3 ML VIAL SC PRN (22:14)
[2018-10-21] MEDS: Nicotine 21 MG PATCH TOP SCH (22:17)
[2018-10-22] MEDS ORDERED: Vancomycin HCl 750 MG in Sodium Chloride 0.9% 250 ML 250 ML IVPB SCH (05:00)
[2018-10-22] MEDS: Levothyroxine 175 MCG TAB PO SCH (05:03)
[2018-10-22] MEDS: HumaLOG 300 UNITS/3 ML VIAL SC PRN ×4 (06:08→21:05)
[2018-10-22 06:33] LABS: #Lymphocytes 0.5 thou/uL (1.20-3.40); #Monocytes 0.1 thou/uL (0.11-0.59); #Neutrophils 5.5 thou/uL (1.40-6.50); %Basophils 0.2 % (0.0-1.0); %Eosinophils 0.1 % (0.0-10.0); %Lymphocytes 7.5 % (21.0-51.0); %Neutrophils 90.2 % (42.0-75.0); Hemoglobin 7.5 g/dL (12.0-16.0); Mean Corpuscular HGB CONC 32.1 g/dL (32.0-36.0); Mean Corpuscular Hemoglobin 28.8 pg (27.0-31.0); Mean Platelet Volume 7.6 fL (7.4-10.4); Platelet Count 130 thou/uL (130-400); RBC Distribution Width 15.6 % (11.5-14.5); Red Blood Cell (RBC) Count 2.59 mill/uL (4.20-5.40); White Blood Cell (WBC) Count 6.1 thou/uL (4.8-10.8)
[2018-10-22 06:52] LABS: Anion Gap 12 mmol/L (10-20); BUN (Urea Nitrogen) 34 mg/dL (9.8-20.1); Calc. Creatinine Clearance 32 mL/min (70-130); Calcium 9.1 mg/dL (7.8-10.44); Carbon Dioxide 23 mmol/L (22-29); Chloride 106 mmol/L (98-107); Estimated GFR-MDRD 21; Glucose 235 mg/dL (70-105); Potassium 5.5 mmol/L (3.5-5.1); Sodium 135 mmol/L (136-145)
[2018-10-22] MEDS: Fish Oil 1,000 MG CAP PO SCH ×2 (08:31→21:01)
[2018-10-22] MEDS: Famotidine 20 MG TAB PO SCH (08:31)
[2018-10-22] MEDS: Clopidogrel Bisulfate 75 MG TAB PO SCH (08:31)
[2018-10-22] MEDS: Sodium Bicarbonate Tab 325 MG TAB PO SCH ×2 (08:32→21:01)
[2018-10-22] MEDS: Cyanocobalamin (Vitamin B-12) 1,000 MCG TAB PO SCH (08:32)
[2018-10-22] MEDS: Atorvastatin Calcium 10 MG TAB PO SCH (08:32)
[2018-10-22] MEDS: Sevelamer Carbonate 800 MG TAB PO SCH ×3 (08:32→17:13)
[2018-10-22] MEDS: Amlodipine 10 MG TAB PO SCH (08:32)
[2018-10-22] MEDS: Stress 600 With Zinc 1 TAB PO SCH (08:33)
[2018-10-22] MEDS: Enoxaparin Sodium 40 MG/0.4 ML SYRINGE SC SCH (08:33)
[2018-10-22] MEDS: Furosemide 40 MG/4 ML VIAL SLOW IVP SCH (08:33)
[2018-10-22] MEDS: Cefepime 2 GM in Sodium Chloride 0.9% 100 ML IVPB SCH ×2 (08:33→21:00)
[2018-10-22] MEDS: Metoprolol Tartrate 25 MG TAB PO SCH ×2 (08:33→21:02)
[2018-10-22] MEDS ORDERED: Nicotine 21 MG PATCH TOP SCH (09:00)
[2018-10-22] MEDS ORDERED: Dextrose 50% Abboject 50 ML SYRINGE SLOW IVP PRN ×2 (09:35→19:59)
[2018-10-22] MEDS ORDERED: Insulin Regular 300 UNITS/3 ML VIAL IVP SCH ×2 (09:45→20:00)
--- NOTE | 2018-10-22 10:29 | PDOC.PN ---
- Subjective Encounter Start Date: 10/22/18 Encounter Start Time: 10:26 Subjective: feels a little better.had low oxygen level las night -: reports that she has stage 4 kidney disease. -: does not want to take kayexalate. - Objective Resuscitation Status - Order Detail: 10/21/18 03:48 Resuscitation Status Routine Resuscitation Status: FULL: Full Resuscitation MAR Reviewed: Yes Vital Signs & Weight: Vital Signs (12 hours) Temp Pulse Resp BP BP Pulse Ox 10/22/18 08:32 67 130/64 10/22/18 07:25 98.0 F 69 18 130/74 93 L 10/22/18 05:51 65 18 96 10/22/18 04:00 98.4 F 70 16 132/56 L 92 L 10/22/18 00:00 97.8 F 69 22 H 139/66 95 Weight Admit Weight 168 lb 8 oz Weight 168 lb 8 oz I&O: 10/21/18 10/22/18 10/23/18 06:59 06:59 06:59 Intake Total 480 Balance 480 Result Diagrams: 10/22/18 06:05 10/22/18 06:05 Additional Labs: Accuchecks 10/22/18 10/21/18 04:21 20:57 POC Glucose 245 H 338 H Laboratory Tests 10/21/18 01:27 B-Natriuretic Peptide 1203.7 H Phys Exam - Physical Examination Constitutional: NAD HEENT: PERRLA, moist MMs, sclera anicteric, oral pharynx no lesions Neck: no nodes, no JVD, supple, full ROM Respiratory: no wheezing, no rales, no rhonchi, clear to auscultation bilateral Cardiovascular: RRR, no significant murmur, no rub Gastrointestinal: soft, non-tender, no distention, positive bowel sounds Musculoskeletal: no edema, pulses present Neurological: non-focal, normal sensation, moves all 4 limbs Psychiatric: normal affect, A&O x 3 Dx/Plan (1) Acute respiratory failure with hypoxia Code(s): J96.01 - ACUTE RESPIRATORY FAILURE WITH HYPOXIA Status: Acute Comment: she is not on home oxygen, will assess for her need for home oxygen.Unfunded and as declined las admission requiring re amission for hypoxia (2) HCAP (healthcare-associated pneumonia) Code(s): J18.9 - PNEUMONIA, UNSPECIFIED ORGANISM Status: Acute Comment: suspected. On cefepime and vancomycin (3) CKD (chronic kidney disease) stage 4, GFR 15-29 ml/min Code(s): N18.4 - CHRONIC KIDNEY DISEASE, STAGE 4 (SEVERE) Status: Acute Comment: stable renal function, creatinine is better today, nephrology following (4) Hyperkalemia Code(s): E87.5 - HYPERKALEMIA Status: Acute Comment: MISSED MERLYA SHE DID NOT BRING HER OWN AND IT IS A NON FORMULARY MEDICINE (5) Anemia of renal disease Code(s): N18.9 - CHRONIC KIDNEY DISEASE, UNSPECIFIED; D63.1 - ANEMIA IN CHRONIC KIDNEY DISEASE Status: Chronic (6) DM type 2 (diabetes mellitus, type 2) Status: Chronic (7) HLD (hyperlipidemia) Code(s): E78.5 - HYPERLIPIDEMIA, UNSPECIFIED Status: Chronic (8) HTN (hypertension) Code(s): I10 - ESSENTIAL (PRIMARY) HYPERTENSION Status: Chronic (9) Hypothyroidism Code(s): E03.9 - HYPOTHYROIDISM, UNSPECIFIED Status: Chronic (10) Obesity (BMI 30.0-34.9) Code(s): E66.9 - OBESITY, UNSPECIFIED Status: Chronic - Plan continue antibiotics, PT/OT, respiratory therapy, incentive spirometry, DVT proph w/SCDs reduce IV steroids. empiric ABx,nebs. -: give insulin+Dextrose and recheck potassium.Restart Veltassa. -: given h/o severe hypoxia & multiple hospitalizations-will consult PCCM -: Will hugely benefit from home O2.CM consulted But Pt unfunded -: cont 1 more day of IV lasix then switch to Po * .Monitor renalFx * Start Epogen for lower H/H given ACD.had low iron levels last admission but unclear if wassupplemeted IV.will give 1 dose * pt refused Kayexelate due to PO intolerance * am labs Review of Systems - Review of Systems Constitutional: negative: fever, chills, sweats, weakness, malaise, other ENT: negative: Ear Pain, Ear Discharge, Nose Pain, Nose Discharge, Nose Congestion, Mouth Pain, Mouth Swelling, Throat Pain, Throat Swelling, Other Respiratory: negative: Cough, Dry, Shortness of Breath, Hemoptysis, SOB with Excertion, Pleuritic Pain, Sputum, Wheezing Cardiovascular: negative: chest pain, palpitations, orthopnea, paroxysmal nocturnal dyspnea, edema, light headedness, other Gastrointestinal: negative: Nausea, Vomiting, Abdominal Pain, Diarrhea, Constipation, Melena, Hematochezia, Other Genitourinary: negative: Dysuria, Frequency, Incontinence, Hematuria, Retention , Other Musculoskeletal: negative: Neck Pain, Shoulder Pain, Arm Pain, Back Pain, Hand Pain, Leg Pain, Foot Pain, Other Neurological: negative: Weakness, Numbness, Incoordination, Change in Speech, Confusion, Seizures, Other - Medications/Allergies Allergies/Adverse Reactions: Allergies Allergy/AdvReac Type Severity Reaction Status Date / Time codeine Allergy Verified 09/25/18 12:44 meperidine HCl [From Demerol] Allergy Verified 09/25/18 12:44 Penicillins Allergy Verified 09/25/18 12:44 sulfamethoxazole Allergy Verified 09/25/18 12:44 [From Bactrim] trimethoprim [From Bactrim] Allergy Verified 09/25/18 12:44 Medications: Current Medications Acetaminophen (Tylenol) 650 mg PO Q4H PRN PRN Reason: Headache/Fever/Mild Pain (1-3) Albuterol/Ipratropium (Duoneb) 3 ml NEB Q4H PRN PRN Reason: SOB &/or Wheezing Last Admin: 10/22/18 05:51 Dose: 3 ml Amlodipine Besylate (Norvasc) 10 mg PO DAILY [facility] Last Admin: 10/22/18 08:32 Dose: 10 mg Aspirin (Aspirin Chewable) 162 mg PO DAILY [facility] Last Admin: 10/22/18 08:32 Dose: 162 mg Atorvastatin Calcium (Lipitor) 10 mg PO DAILY [facility] Last Admin: 10/22/18 08:32 Dose: 10 mg Cholecalciferol (Vitamin D3) 1,000 units PO BID [facility] Last Admin: 10/22/18 08:31 Dose: 1,000 units Clopidogrel Bisulfate (Plavix) 75 mg PO DAILY [facility] Last Admin: 10/22/18 08:31 Dose: 75 mg Cyanocobalamin (Vitamin B-12) 1,000 mcg PO DAILY [facility] Last Admin: 10/22/18 08:32 Dose: 1,000 mcg Dextrose/Water (Dextrose 50%) 25 gm IVP PRN PRN PRN Reason: HYPOGLYCEMIA PROTOCOL Dextrose/Water (Dextrose 50%) 25 gm SLOW IVP ONE PRN PRN Reason: Hypoglycemia Stop: 10/29/18 09:36 Enoxaparin Sodium (Lovenox) 40 mg SC 0900 [facility] Last Admin: 10/22/18 08:33 Dose: Not Given Famotidine (Pepcid) 20 mg PO DAILY [facility] Last Admin: 10/22/18 08:31 Dose: 20 mg Fish Oil (Fish Oil) 1,000 mg PO BID [facility] Last Admin: 10/22/18 08:31 Dose: 1,000 mg Furosemide (Lasix) 40 mg SLOW IVP DAILY [facility] Last Admin: 10/22/18 08:33 Dose: 40 mg Glucagon (Glucagon) 1 mg IM PRN PRN PRN Reason: HYPOGLYCEMIA PROTOCOL Cefepime HCl 2 gm/ Sodium (Chloride) 100 mls @ 200 mls/hr IVPB Q12HR [facility] Last Admin: 10/22/18 08:33 Dose: 100 mls Vancomycin HCl 750 mg/ Sodium (Chloride) 250 mls @ 250 mls/hr IVPB 0500 [facility] Last Admin: 10/22/18 05:04 Dose: 250 mls Dextrose/Water (D5w) 1,000 mls @ 0 mls/hr IV INF PRN PRN Reason: HYPOGLYCEMIA PROTOCOL Insulin Human Lispro (Humalog) 0 units SC .MILD SLIDING SCALE PRN; Protocol PRN Reason: MILD SLIDING SCALE Last Admin: 10/22/18 06:08 Dose: 3 unit Insulin Human Lispro (Humalog) 0 units SC .BEDTIME SLIDING SC PRN; Protocol PRN Reason: BEDTIME SLIDING SCALE Last Admin: 10/21/18 22:14 Dose: 4 unit Insulin Human Regular (Humulin R) 10 units IVP ONE [facility] Stop: 10/22/18 11:00 Levothyroxine Sodium (Synthroid) 175 mcg PO 0600 [facility] Last Admin: 10/22/18 05:03 Dose: 175 mcg Methylprednisolone Sodium Succinate (Solu-Medrol) 40 mg IVP Q12H [facility] Metoprolol Tartrate (Lopressor) 25 mg PO BID [facility] Last Admin: 10/22/18 08:33 Dose: 25 mg Miscellaneous Medication (Pharmacy To Dose) 1 each IVPB PRN PRN PRN Reason: PNA Stop: 11/20/18 04:01 Multivitamins/Zinc (Stress 600 With Zinc) 1 tab PO DAILY [facility] Last Admin: 10/22/18 08:33 Dose: 1 tab Nicotine (Nicoderm Patch) 21 mg TOP 2200 [facility] Last Admin: 10/21/18 22:17 Dose: Not Given Ondansetron HCl (Zofran) 4 mg IVP Q6H PRN PRN Reason: Nausea/Vomiting Patiromer Calcium Sorbitex [Veltassa] 8.4 Gm 0 each PO DAILY-AC [facility] Sevelamer Carbonate (Renvela) 800 [address] TID-[facility] Last Admin: 10/22/18 08:32 Dose: 800 mg Sodium Bicarbonate (Bicarbonate, Sodium) 650 mg PO BID [facility] Last Admin: 10/22/18 08:32 Dose: 650 mg
[2018-10-22] MEDS ORDERED: Epoetin (ESRD) 20,000 UNITS/ML SC SCH (10:45)
[2018-10-22 15:42] LABS: Anion Gap 16 mmol/L (10-20); BUN (Urea Nitrogen) 39 mg/dL (9.8-20.1); Calc. Creatinine Clearance 28 mL/min (70-130); Calcium 9.2 mg/dL (7.8-10.44); Carbon Dioxide 20 mmol/L (22-29); Chloride 105 mmol/L (98-107); Estimated GFR-MDRD 18; Glucose 360 mg/dL (70-105); Potassium 5.5 mmol/L (3.5-5.1); Sodium 135 mmol/L (136-145)
--- NOTE | 2018-10-22 20:01 | PDOC.EVN ---
Event Note - Event Note Event Note: Potasssium still high.repeat Insulin +dextrose.restart Veltassa
[2018-10-22] MEDS: Nicotine 21 MG PATCH TOP SCH (21:37)
--- NOTE | 2018-10-22 22:38 | HP ---
PRIMARY CARE DOCTOR: [facility]. CODE STATUS: Full code. TIME OF EVALUATION: 3:30 a.m. CHIEF COMPLAINT: Worsening shortness of breath. HISTORY OF PRESENT ILLNESS: This is a 58-year-old female patient with past medical history of chronic kidney disease, hypothyroidism, GERD, hyperlipidemia, COPD, long-term smoker, hypertension, came to the hospital after having gradually worsening and severe shortness of breath, associated with sputum production, which is yellowish in color. No clear triggers. No alleviating factors. Symptoms are reported as moderate to severe, needing oxygen to keep saturation above 90. REVIEW OF SYSTEMS: CONSTITUTIONAL: No fever, chills, or generalized weakness. RESPIRATORY: The patient has cough, sputum production, and shortness of breath. CARDIOVASCULAR: No chest pain or palpitations. GASTROINTESTINAL: No nausea, no vomiting, diarrhea, or abdominal pain. 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 GENITOURINARY: No burning on urination. EXTREMITIES: Bilateral leg swelling. All other systems were reviewed and negative except for the findings mentioned above. PAST MEDICAL HISTORY: As mentioned in HPI. FAMILY HISTORY: Reviewed and noncontributory for current presentation. SOCIAL HISTORY: The patient is still smoking decreasing the amount of cigarettes on a daily basis. No alcohol. No drugs. PAST SURGICAL HISTORY: Cholecystectomy, x2, hysterectomy, and rotator cuff surgery in right shoulder. PSYCH HISTORY: No previous psych history. No history of suicidal ideation or suicidal attempts. No hallucinations. No history of homicidal ideation. ALLERGIES: CODEINE, MEPERIDINE, PENICILLIN, SULFAMETHOXAZOLE, REPORTED MEDICATIONS: 1. Synthroid. 2. Amlodipine. 3. Simvastatin. 4. Ranitidine. 5. Lasix. 6. Albuterol. 7. Aspirin. 8. Vitamin D. 9. Fish oil. PHYSICAL EXAMINATION: VITAL SIGNS: On presentation, blood pressure 161/76, heart rate 108, respiratory rate was 26, and oxygen saturation was 67% on room air. GENERAL APPEARANCE: The patient is alert, oriented, in mild distress due to shortness of breath. HEENT: Eye, normal conjunctivae. Moist oral mucosa. Anicteric. NECK: No JVD. RESPIRATORY: Bilateral air entry is decreased. The patient has bilateral wheezing. Symmetric expansion, but is decreased. CARDIOVASCULAR: Normal rate and regular rhythm. No murmurs. No gallops. ABDOMEN: Soft. Normal bowel sounds. MUSCULOSKELETAL: Baseline range of motion and strength. No tenderness. SKIN: Warm, intact. No pallor. No rash. No redness. EXTREMITIES: Bilateral leg edema. Peripheral pulses are present. Capillary refill seems to be intact. NEURO: No evidence of any new focal weakness. Baseline speech. Cranial nerves seem to be intact. PSYCH: The patient is in good mood. No anxiety. Oriented, optimal judgment. DIAGNOSTIC STUDIES: EKG was reviewed, and the patient has normal sinus rhythm with a rate of 91 with no ectopics. Chest, the patient has right lower lobe and perihilar infiltrate, bilateral pleural effusions. LABORATORY DATA: Labs were reviewed. The patient has white count of 5.7, hemoglobin 9.1, MCV 90, and platelet count 148. Blood gas: PH 7.36, pCO2 of 42, and pO2 of 119. Chemistry: Sodium 140, potassium 5.1, chloride 108, carbon dioxide 24, anion gap 13, BUN 23, and creatinine 1.88, in previous admissions, it was about the same level. GFR . Glucose calcium 9.9, and total bilirubin 0.6. LFTs were normal. Beta natriuretic peptide was 1203. ASSESSMENT AND PLAN: The patient was placed in the hospital with the following medical problems: 1. Possible healthcare-associated pneumonia. The patient has a history of recent admissions. We will place the patient on broad-spectrum antibiotics. Follow cultures, adjust treatment as per sensitivities. 2. Acute hypoxic respiratory failure. The patient needs a nasal cannula to keep saturation above 90, and the patient does not use home oxygen, we will treat the underlying condition. 3. Uncontrolled hypertension. The patient presented with systolic blood pressure 161. We will reconcile home medications, we will adjust treatment as needed. She will need daily p.r.n. medication for optimal control. 4. Chronic kidney disease. BUN and creatinine remain, however, the same when compared with previous admissions. We will monitor renal function, we will adjust treatment as needed. The patient is in stage 4 with a GFR . 5. Hyperglycemia, could be secondary to acute physical distress, also poor tolerance to glucose. 6. Chronic obstructive pulmonary disease exacerbation. We will place nebulizers and antibiotics. We will monitor and adjust treatment as needed. 7. Deep venous thrombosis prophylaxis. 8. History of hyperlipidemia, low-cholesterol diet is advised. 9. Hypothyroidism: Continue Synthroid. Job ID: [id number]
[2018-10-22] MEDS: Patiromer Calcium Sorbitex [Veltassa] 8.4 GM PO SCH (23:30)
--- NOTE | 2018-10-23 02:35 | CON ---
DATE OF CONSULTATION: 10/22/2018 SERVICE: Pulmonary Medicine. REASON FOR CONSULT: Respiratory failure. HISTORY OF PRESENT ILLNESS: The patient is a 58-year-old white female with past medical history significant for chronic diastolic heart failure. She was in her usual state of health until a couple of months ago when she started having progressive increasing dyspnea on exertion and orthopnea. She would sit up on the side of the bed in the middle of the night and after 15 or 20 minutes, her shortness of breath would resolve. She would go back to bed and that would happen again. This has become increasingly severe to the point where she has 2 to 3-pillow orthopnea. At no point during last 2 months has she had fevers, myalgia, aches, pains, nausea, or vomiting. She does have almost a chronic cough at this point. She is only bringing up clear sputum. She did not bring up anything with color to it like yellow, blood, or green material. She presented to the emergency department a couple of weeks ago. She was admitted, but went home for social issues. Apparently, her in the hospital on the 01 of October. As such, she really felt like she could not be in the hospital during that date. Ultimately , she left before she really wanted to. She was not feeling a 100% better. After she got out of the hospital, once again, she started having increasing dyspnea with exertion. She does have a history of asthma. She has been a lifelong smoker. PAST MEDICAL HISTORY: 1. Type 2 diabetes mellitus. 2. Hypothyroidism. 3. Hypertension. 4. Gastroesophageal reflux disease. 5. Dyslipidemia. 6. History of TIA. 7. Asthma. 8. Chronic kidney disease, stage 4. 9. History of cervical cancer. PAST SURGICAL HISTORY: 1. section x2. 2. Hysterectomy. 3. Cholecystectomy. 4. Rotator cuff surgery on the right. SOCIAL HISTORY: Negative for significant alcohol or illicit drug use. She has a greater than [id number] history of smoking. She has no exposure to chemicals, dust, asbestos, or tuberculosis. FAMILY HISTORY: Noncontributory. ALLERGIES: NO KNOWN DRUG ALLERGIES. MEDICATIONS: List of her inpatient medications was reviewed. Multiple updates were made. REVIEW OF SYSTEMS: General, head, ears, eyes, nose, throat, cardiovascular, respiratory, GI, , musculoskeletal, neurologic, and skin are negative except as mentioned is the HPI. PHYSICAL EXAMINATION: VITAL SIGNS: Afebrile, pulse 72, blood pressure 135/57, respirations 20, saturation 95% on 2 L nasal cannula. HEENT: Normocephalic and atraumatic. Sclerae white. Conjunctivae pink. Oral mucosa is moist without lesions. LUNGS: There is excellent air entry. There is absolutely no prolonged expiratory phase. On forced exhalation, there is no elicited wheezing. That being said, there is extensive crackles present which are more severe in the bibasilar region. She also has rhonchi that clears with cough. HEART: Normal rate. Regular. ABDOMEN: Soft, nontender, and nondistended. Bowel sounds are positive. MUSCULOSKELETAL: No cyanosis or clubbing. There is trace pitting in the bilateral lower extremities. NEUROLOGIC: Grossly nonfocal. LABORATORY DATA: WBCs 6.1, hemoglobin 7.5, platelets 130,000. Differential on presentation was completely unremarkable. PH 7.36, pCO2 of 43, pO2 of 119 on a non-rebreather at that time. Creatinine 2.66, BUN 39, potassium 5.5, sodium 135. Basic metabolic profile is otherwise unremarkable. Blood sugar ranges from 245 to 360. Blood cultures x2, urine culture, and prior respiratory virus panel were all unremarkable. IMAGING DATA: 1. Chest x-ray demonstrates bilateral pleural effusions and bibasilar pleural-parenchymal opacification or interstitial fullness. There is also cephalization. These findings are all in keeping with volume overload. 2. Nuclear stress test demonstrates normal myocardial perfusion scan. ASSESSMENT: 1. Acute hypoxic respiratory failure. 2. Volume overload state, likely secondary to chronic kidney disease. 3. Chronic kidney disease, stage 4. 4. Acute on chronic diastolic heart failure. 5. History of asthma without any evidence of obstructive lung disease at this point. DISCUSSION AND PLAN: I am going to discontinue her antibiotics, as she did not have a white blood cell count, fever, or tachycardia on presentation. We will aggressively diurese her. I will increase her Lasix to 80 mg twice daily. Steroids are going to be interrupted. We will continue nebulized medications for the time being. My suspicion is that we are dealing with a volume-mediated presentation. This is consistent with what I am seeing on physical exam and on imaging. In 24 to 48 hours, if she does not have a significant improvement in breathing, we may need to look into other entities. Pulmonary Critical Care will continue to follow while she remains in-house for the time being. 70 minutes have been devoted to this patient in various activities. I personally reviewed all imaging studies and laboratory data noted within this document. For fifty percent of this time, I was interacting with the patient at the bedside or coordinating care with the care team. For the remainder of the time I was immediately available to the patient in the hospital unit. Job ID: [id number] MTDD
[2018-10-23] MEDS: Patiromer Calcium Sorbitex [Veltassa] 8.4 GM PO SCH ×2 (05:33→15:11)
[2018-10-23 05:38] LABS: Hemoglobin 8.4 g/dL (12.0-16.0)
[2018-10-23] MEDS ORDERED: Furosemide 100 MG/10 ML VIAL SLOW IVP SCH (06:00)
[2018-10-23 06:07] LABS: Vancomycin, Trough 13.7 ug/mL
[2018-10-23 06:12] LABS: Anion Gap 12 mmol/L (10-20); BUN (Urea Nitrogen) 45 mg/dL (9.8-20.1); Calc. Creatinine Clearance 29 mL/min (70-130); Carbon Dioxide 24 mmol/L (22-29); Chloride 105 mmol/L (98-107); Estimated GFR-MDRD 20; Glucose 201 mg/dL (70-105); Potassium 4.7 mmol/L (3.5-5.1); Sodium 136 mmol/L (136-145)
[2018-10-23] MEDS: Levothyroxine 175 MCG TAB PO SCH (06:13)
[2018-10-23] MEDS: HumaLOG 300 UNITS/3 ML VIAL SC PRN ×2 (06:24→17:10)
[2018-10-23] MEDS: Stress 600 With Zinc 1 TAB PO SCH (09:07)
[2018-10-23] MEDS: Sodium Bicarbonate Tab 325 MG TAB PO SCH ×2 (09:07→22:17)
[2018-10-23] MEDS: Sevelamer Carbonate 800 MG TAB PO SCH ×3 (09:07→15:14)
[2018-10-23] MEDS: Clopidogrel Bisulfate 75 MG TAB PO SCH (09:08)
[2018-10-23] MEDS: Metoprolol Tartrate 25 MG TAB PO SCH ×2 (09:08→22:17)
[2018-10-23] MEDS: Heparin 5,000 UNITS/ML VIAL SC SCH ×2 (09:08→22:18)
[2018-10-23] MEDS: Atorvastatin Calcium 10 MG TAB PO SCH (09:08)
[2018-10-23] MEDS: Fish Oil 1,000 MG CAP PO SCH ×2 (09:08→22:17)
[2018-10-23] MEDS: Cyanocobalamin (Vitamin B-12) 1,000 MCG TAB PO SCH (09:08)
[2018-10-23] MEDS: Amlodipine 10 MG TAB PO SCH (09:09)
[2018-10-23] MEDS ORDERED: Metolazone 5 MG TAB PO SCH (14:00)
[2018-10-23] MEDS: Furosemide 40 MG/4 ML VIAL SLOW IVP SCH ×2 (15:13→22:24)
--- NOTE | 2018-10-23 16:01 | PDOC.PN ---
- Subjective Encounter Start Date: 10/23/18 Encounter Start Time: 14:40 -: old records requested/rev Pt seen and examined, chart reviewed in its entirety, this is my first visit with this patient. follow up for SELMA, Volume overload, AECOPD No F/C, no N/V/D/C, no CP or SOB, no cough or sputum All systems reviewed and neg except as above - Objective Resuscitation Status - Order Detail: 10/21/18 03:48 Resuscitation Status Routine Resuscitation Status: FULL: Full Resuscitation MAR Reviewed: Yes Vital Signs & Weight: Vital Signs (12 hours) Temp Pulse Resp BP BP Pulse Ox 10/23/18 10:58 63 20 160/71 H 10/23/18 09:09 65 144/57 H 10/23/18 07:37 98.0 F 65 20 144/57 H 92 L Weight Admit Weight 168 lb 8 oz Weight 168 lb 8 oz I&O: 10/22/18 10/23/18 10/24/18 06:59 06:59 06:59 Intake Total 480 1900 Balance 480 1900 Result Diagrams: 10/23/18 04:33 10/25/18 04:47 Additional Labs: Accuchecks 10/23/18 10/23/18 10/22/18 11:02 05:35 19:50 POC Glucose 154 H 207 H 324 H 10/22/18 17:02 POC Glucose 364 H Radiology Reviewed by me: Yes EKG Reviewed by me: Yes Phys Exam - Physical Examination Constitutional: NAD HEENT: PERRLA, moist MMs, sclera anicteric, oral pharynx no lesions Neck: no nodes, no JVD, supple, full ROM Respiratory: no wheezing, no rales, no rhonchi, clear to auscultation bilateral Cardiovascular: RRR, no significant murmur, no rub Gastrointestinal: soft, non-tender, no distention, positive bowel sounds Musculoskeletal: no edema, pulses present Neurological: non-focal, normal sensation, moves all 4 limbs Lymphatic: no nodes Psychiatric: normal affect, A&O x 3 Skin: no rash, normal turgor, cap refill <2 seconds Dx/Plan (1) HCAP (healthcare-associated pneumonia) Code(s): J18.9 - PNEUMONIA, UNSPECIFIED ORGANISM Status: Ruled-out Comment: off abx (2) Acute respiratory failure with hypoxia Code(s): J96.01 - ACUTE RESPIRATORY FAILURE WITH HYPOXIA Status: Acute Comment: she is not on home oxygen, will assess for her need for home oxygen.Unfunded and as declined las admission requiring re amission for hypoxia (3) CKD (chronic kidney disease) stage 4, GFR 15-29 ml/min Code(s): N18.4 - CHRONIC KIDNEY DISEASE, STAGE 4 (SEVERE) Status: Acute Comment: stable renal function, creatinine is better today, nephrology following (4) COPD exacerbation Code(s): J44.1 - CHRONIC OBSTRUCTIVE PULMONARY DISEASE W (ACUTE) EXACERBATION Status: Acute Comment: not stable and seems improved (5) Demand ischemia of myocardium Code(s): I24.8 - OTHER FORMS OF ACUTE ISCHEMIC HEART DISEASE Status: Acute - Plan cont current plan of care, continue antibiotics, PT/OT, social worker, respiratory therapy, out of bed/ambulate * .
[2018-10-23] MEDS: Nicotine 21 MG PATCH TOP SCH (22:19)
[2018-10-24] MEDS: Furosemide 40 MG/4 ML VIAL SLOW IVP SCH ×3 (04:06→12:01)
[2018-10-24 05:58] LABS: Anion Gap 13 mmol/L (10-20); BUN (Urea Nitrogen) 46 mg/dL (9.8-20.1); Calc. Creatinine Clearance 30 mL/min (70-130); Calcium 9.4 mg/dL (7.8-10.44); Carbon Dioxide 27 mmol/L (22-29); Chloride 104 mmol/L (98-107); Estimated GFR-MDRD 20; Glucose 141 mg/dL (70-105); Potassium 4.7 mmol/L (3.5-5.1); Sodium 139 mmol/L (136-145)
[2018-10-24] MEDS: Levothyroxine 175 MCG TAB PO SCH (06:02)
[2018-10-24] MEDS: Patiromer Calcium Sorbitex [Veltassa] 8.4 GM PO SCH (08:31)
[2018-10-24] MEDS: Fish Oil 1,000 MG CAP PO SCH ×2 (08:32→21:05)
[2018-10-24] MEDS: Metoprolol Tartrate 25 MG TAB PO SCH ×2 (08:32→21:05)
[2018-10-24] MEDS: Clopidogrel Bisulfate 75 MG TAB PO SCH (08:32)
[2018-10-24] MEDS: Atorvastatin Calcium 10 MG TAB PO SCH (08:32)
[2018-10-24] MEDS: Cyanocobalamin (Vitamin B-12) 1,000 MCG TAB PO SCH (08:32)
[2018-10-24] MEDS: Sevelamer Carbonate 800 MG TAB PO SCH ×3 (08:32→17:31)
[2018-10-24] MEDS: Sodium Bicarbonate Tab 325 MG TAB PO SCH ×2 (08:32→21:05)
[2018-10-24] MEDS: Stress 600 With Zinc 1 TAB PO SCH (08:32)
[2018-10-24] MEDS: Heparin 5,000 UNITS/ML VIAL SC SCH ×2 (08:33→21:06)
[2018-10-24] MEDS: Amlodipine 10 MG TAB PO SCH (08:33)
[2018-10-24] MEDS: HumaLOG 300 UNITS/3 ML VIAL SC PRN (21:11)
[2018-10-24] MEDS: Nicotine 21 MG PATCH TOP SCH (21:12)
[2018-10-25] MEDS: Levothyroxine 175 MCG TAB PO SCH (05:18)
[2018-10-25 05:51] LABS: Anion Gap 11 mmol/L (10-20); BUN (Urea Nitrogen) 41 mg/dL (9.8-20.1); Calc. Creatinine Clearance 34 mL/min (70-130); Calcium 9.3 mg/dL (7.8-10.44); Carbon Dioxide 29 mmol/L (22-29); Chloride 103 mmol/L (98-107); Estimated GFR-MDRD 24; Glucose 128 mg/dL (70-105); Potassium 4.5 mmol/L (3.5-5.1); Sodium 138 mmol/L (136-145)
[2018-10-25] MEDS: Metoprolol Tartrate 25 MG TAB PO SCH (08:34)
[2018-10-25] MEDS: Sodium Bicarbonate Tab 325 MG TAB PO SCH (08:34)
[2018-10-25] MEDS: Fish Oil 1,000 MG CAP PO SCH (08:34)
[2018-10-25] MEDS: Atorvastatin Calcium 10 MG TAB PO SCH (08:35)
[2018-10-25] MEDS: Cyanocobalamin (Vitamin B-12) 1,000 MCG TAB PO SCH (08:35)
[2018-10-25] MEDS: Clopidogrel Bisulfate 75 MG TAB PO SCH (08:35)
[2018-10-25] MEDS: Furosemide 40 MG TAB PO SCH ×2 (08:36→13:30)
[2018-10-25] MEDS: Heparin 5,000 UNITS/ML VIAL SC SCH (08:36)
[2018-10-25] MEDS: Amlodipine 10 MG TAB PO SCH (08:36)
[2018-10-25] MEDS: Sevelamer Carbonate 800 MG TAB PO SCH ×2 (08:36→11:29)
--- NOTE | 2018-10-25 08:36 | PDOC.PN ---
- Subjective Encounter Start Date: 10/24/18 Encounter Start Time: 10:30 follow up for No F/c, no n/V/D/c, no CP or SOB all systems reviewed and neg x as above - Objective Resuscitation Status - Order Detail: 10/21/18 03:48 Resuscitation Status Routine Resuscitation Status: FULL: Full Resuscitation MAR Reviewed: Yes Vital Signs & Weight: Vital Signs (12 hours) Temp Pulse Resp BP Pulse Ox 10/25/18 07:47 99.1 F 71 20 152/65 H 91 L 10/25/18 06:00 99.5 F 57 L 20 155/62 H 92 L 10/25/18 00:00 99.1 F 70 18 151/71 H 94 L Weight Admit Weight 168 lb 8 oz Weight 167 lb 12.348 oz I&O: 10/24/18 10/25/18 10/26/18 06:59 06:59 06:59 Intake Total 200 Balance 200 Result Diagrams: 10/23/18 04:33 10/25/18 04:47 Additional Labs: Accuchecks 10/25/18 10/24/18 10/24/18 05:59 20:45 16:25 POC Glucose 141 H 203 H 144 H 10/24/18 12:07 POC Glucose 173 H Phys Exam - Physical Examination Constitutional: NAD HEENT: PERRLA, moist MMs, sclera anicteric, oral pharynx no lesions Neck: no nodes, no JVD, supple, full ROM Respiratory: no wheezing, no rales, no rhonchi, clear to auscultation bilateral Cardiovascular: RRR, no significant murmur, no rub Gastrointestinal: soft, no distention, positive bowel sounds Musculoskeletal: edema present Neurological: non-focal, normal sensation, moves all 4 limbs Lymphatic: no nodes Psychiatric: normal affect, A&O x 3 Skin: no rash, normal turgor, cap refill <2 seconds Dx/Plan (1) HCAP (healthcare-associated pneumonia) Code(s): J18.9 - PNEUMONIA, UNSPECIFIED ORGANISM Status: Ruled-out Comment: off abx (2) Acute respiratory failure with hypoxia Code(s): J96.01 - ACUTE RESPIRATORY FAILURE WITH HYPOXIA Status: Acute Comment: she is not on home oxygen, will assess for her need for home oxygen.Unfunded and as declined las admission requiring re amission for hypoxia (3) CKD (chronic kidney disease) stage 4, GFR 15-29 ml/min Code(s): N18.4 - CHRONIC KIDNEY DISEASE, STAGE 4 (SEVERE) Status: Acute Comment: stable renal function, creatinine is better today, nephrology following (4) COPD exacerbation Code(s): J44.1 - CHRONIC OBSTRUCTIVE PULMONARY DISEASE W (ACUTE) EXACERBATION Status: Acute Comment: not stable and seems improved (5) Demand ischemia of myocardium Code(s): I24.8 - OTHER FORMS OF ACUTE ISCHEMIC HEART DISEASE Status: Acute - Plan cont current plan of care, respiratory therapy, out of bed/ambulate * .
[2018-10-25] MEDS: Patiromer Calcium Sorbitex [Veltassa] 8.4 GM PO SCH (08:37)
--- NOTE | 2018-10-25 10:50 | PRG ---
DATE OF SERVICE: 10/24/2018 SERVICE: Pulmonary Medicine. INTERVAL HISTORY: The patient is breathing much more comfortably today. Her big complaint today is that she has a headache. She has had headaches like this previously, but never this intense so far she remembers. Otherwise, there has been no interval change to her condition. PHYSICAL EXAMINATION: VITAL SIGNS: Afebrile, pulse 62, blood pressure 145/76, respirations 18, and saturation 94% on room air. GENERAL: The patient is awake and alert, in no apparent distress. LUNGS: Very good air entry. There has been a dramatic improvement in the crackles. Rhonchi are still present, but clear with cough. There is a slightly prolonged expiratory phase today, but I do not appreciate any wheezing. HEART: Normal rate. Regular. ABDOMEN: Soft, nontender, and nondistended. Bowel sounds are positive. MUSCULOSKELETAL: No cyanosis or clubbing. There is trace 1+ pitting, which is significantly improved. : No Castillo. NEUROLOGIC: Grossly nonfocal. LABORATORY DATA: Creatinine 2.43, and gently downtrending, BUN 46 and also improving. Basic metabolic profile is otherwise unremarkable. Blood cultures x2 are negative. ASSESSMENT: 1. Acute hypoxic respiratory failure, resolved. 2. Volume overload state, likely secondary to chronic kidney disease. 3. Chronic kidney disease stage 4. 4. Acute on chronic diastolic heart failure. 5. History of asthma, currently quiescent. DISCUSSION AND PLAN: We can continue p.r.n. nebulized medications. At this point, her breathing has nearly returned to baseline. In 24 hours, if she continues to breathe comfortably/improved, she would be a candidate for transition out of the hospital. Pulmonary will continue to follow while she remains in-house for now. Job ID: [id number]
[2018-10-25] MEDS: Stress 600 With Zinc 1 TAB PO SCH (11:29)
[2018-10-25 11:39] VITALS: BP 148/68; TEMP 99
--- NOTE | 2018-10-25 13:48 | DIS ---
DATE OF ADMISSION: 10/21/2018 DATE OF DISCHARGE: 10/25/2018 PRIMARY CARE PHYSICIAN: Mary. DISCHARGE DIAGNOSES: 1. Volume overload. 2. Acute hypoxemic respiratory failure. 3. Chronic kidney disease stage 4. 4. [id number] diastolic congestive heart failure. 5. History of asthma, currently without acute exacerbation. CONSULTATION: Pulmonary Critical Care, Dr. Lázaro Ocampo. PROCEDURES: None. HISTORY AND PHYSICAL: Ms. Alex is a pleasant 58-year-old female with history as above, who presents to the emergency department for shortness of breath. Workup in the ER revealed her to be acutely hypoxemic with respiratory saturation of 67% on room air. She was initially thought to have possible infiltrates, was started on antibiotics and we were called for admission. HOSPITAL COURSE: The patient was seen and examined by Dr. Jane, placed in inpatient status. Antibiotics were discontinued. The patient was given nebulizer treatments and home diuretics. The patient was taken . She was seen by Dr. Lázaro Ocampo on 10/22. He felt there was more volume overload than pneumonia. Antibiotics were stopped and diuretics were increased. diuretics were adjusted due to increasing creatinine, and the patient had improved urine output and improvement of her creatinine. She was initially weaned off oxygen, and while ambulation, oxygen test on 10/24 showed to be 88% on room air with ambulation. By 10/25/2018, she was feeling better, was stable for discharge with outpatient followup. DISCHARGE PHYSICAL EXAMINATION: The patient was seen and examined on the day of discharge. Discharge plan and disposition were discussed with the patient face to face at the bedside. DISCHARGE MEDICATIONS: 1. Amlodipine 10 mg daily. 2. Aspirin 162 mg daily. 3. Cholecalciferol 1000 units p.o. b.i.d. 4. Plavix 75 mg daily. 5. Cyanocobalamin 1000 mcg daily. 6. Fish oil 1 capsule b.i.d. 7. Levothyroxine 175 mcg daily. 8. Lovastatin 40 mg daily. 9. Metoprolol tartrate 25 mg p.o. b.i.d. 10. Renvela 800 mg p.o. t.i.d. with meals. 11. Sodium bicarb 650 mg p.o. b.i.d. 12. Vitamin B complex daily. 13. Albuterol sulfate 2.5 mg nebulized p.r.n. 14. Lasix 40 mg p.o. daily. 15. Veltassa 8.4 g p.o. daily. 16. Zantac 300 mg daily. DISCHARGE CONDITION: Stable. DISCHARGE FOLLOWUP APPOINTMENTS: 1. Dr. Ocampo for clinic schedule. 2. Primary care physician in 1 week. DISCHARGE ACTIVITY: Per cardiopulmonary limits. DISCHARGE DIET: Heart healthy diet recommended, renal diet recommended. DISCHARGE CONDITION: Stable. DISPOSITION: Discharged home via private vehicle. Job ID: [id number]
--- NOTE | 2018-10-26 14:26 | EKG ---
Test Reason : Blood Pressure : / mmHG Vent. Rate : 091 BPM Atrial Rate : 091 BPM P-R Int : 166 ms QRS Dur : 082 ms QT Int : 370 ms P-R-T Axes : 070 063 038 degrees QTc Int : 455 ms Normal sinus rhythm Normal ECG Confirmed by MAHSA BOWIE, JUANA Shields ([id number]), editorial manager SHEREE SILVA ([id number]) on 10/26/2018 2:26:44 PM Referred By: Confirmed By:JUANA BRAGG MD
== END 2018-10-25 14:04 | disposition home or self-care (01) | DRG 291 ==
LOC: ERS 01:15 → T4-A 04:09
PROVIDERS: ADMIT Hospitalist; ATTEND Hospitalist
DX: I13.0 Hypertensive heart and chronic kidney disease with heart failure and stage 1 through stage 4 chronic kidney disease, or unspecified chronic kidney disease (principal); J96.01 Acute respiratory failure with hypoxia; I50.33 Acute on chronic diastolic (congestive) heart failure; J44.1 Chronic obstructive pulmonary disease with (acute) exacerbation; N18.4 Chronic kidney disease, stage 4 (severe); I24.8 Other forms of acute ischemic heart disease; E03.9 Hypothyroidism, unspecified; K21.9 Gastro-esophageal reflux disease without esophagitis; E78.5 Hyperlipidemia, unspecified; E87.5 Hyperkalemia; N18.9 Chronic kidney disease, unspecified; E11.22 Type 2 diabetes mellitus with diabetic chronic kidney disease; E11.65 Type 2 diabetes mellitus with hyperglycemia; E66.9 Obesity, unspecified; Z68.32 Body mass index [BMI] 32.0-32.9, adult; F17.210 Nicotine dependence, cigarettes, uncomplicated; Z88.5 Allergy status to narcotic agent; Z88.0 Allergy status to penicillin; Z88.2 Allergy status to sulfonamides; Z88.8 Allergy status to other drugs, medicaments and biological substances; Z79.82 Long term (current) use of aspirin; Z86.73 Personal history of transient ischemic attack (TIA), and cerebral infarction without residual deficits; Z90.49 Acquired absence of other specified parts of digestive tract
CPT/HCPCS: 36415; 36416; 71045; 80048; 80053; 80202; 82550; 82805; 83880; 84484; 85014; 85018; 85025; 87040; 93005; 93798; 94640; 94644; 94760; 96365; 96367; 96375; J0692; J1644; J1650; J1815; J1940; J2060; J2543; J2920; J2930; J3370; J7050; J7611; J7620; Q4081

== ENCOUNTER 2019-03-16 11:41 | Inpatient (IN) | payer OTHER, SELFPAY ==
[2019-03-16 12:17] LABS: #Eosinphils 0.2 thou/uL (0.0-0.7); #Lymphocytes 1.3 thou/uL (1.20-3.40); #Monocytes 0.5 thou/uL (0.11-0.59); #Neutrophils 5.9 thou/uL (1.40-6.50); %Basophils 0.3 % (0.0-1.0); %Eosinophils 2.8 % (0.0-10.0); %Lymphocytes 16.5 % (21.0-51.0); %Monocytes 5.9 % (0.0-10.0); %Neutrophils 74.5 % (42.0-75.0); Hemoglobin 7.7 g/dL (12.0-16.0); Mean Corpuscular HGB CONC 31.8 g/dL (32.0-36.0); Mean Corpuscular Hemoglobin 26.9 pg (27.0-31.0); Mean Corpuscular Volume 84.7 fL (78.0-98.0); Mean Platelet Volume 7.6 fL (7.4-10.4); Platelet Count 200 thou/uL (130-400); RBC Distribution Width 15.9 % (11.5-14.5); Red Blood Cell (RBC) Count 2.87 mill/uL (4.20-5.40); White Blood Cell (WBC) Count 7.9 thou/uL (4.8-10.8)
[2019-03-16 12:20] LABS: INR-International Normal Ratio 1.3; PTT 29.6 SEC (22.9-36.1); Prothrombin Time 16.5 SEC (12.0-14.7)
[2019-03-16 12:40] LABS: ALT (SGPT) 17 U/L (8-55); AST (SGOT) 29 U/L (5-34); Albumin 3.7 g/dL (3.5-5.0); Alkaline Phosphatase 228 U/L (40-150); Anion Gap 15 mmol/L (10-20); BUN (Urea Nitrogen) 46 mg/dL (9.8-20.1); Bilirubin, Total 0.7 mg/dL (0.2-1.2); CK (CPK) 12 U/L (29-168); Calc. Creatinine Clearance 0 mL/min (70-130); Calcium 10.1 mg/dL (7.8-10.44); Carbon Dioxide 31 mmol/L (22-29); Chloride 97 mmol/L (98-107); Estimated GFR-MDRD 14; Globulin 3.8 g/dL (2.4-3.5); Glucose 182 mg/dL (70-105); Iron 25 ug/dL (50-170); Iron Binding Capacity, Total 266 mcg/dL (265-497); Lipase 24 U/L (8-78); Potassium 4.5 mmol/L (3.5-5.1); Protein, Total 7.5 g/dL (6.0-8.3); Sodium 138 mmol/L (136-145)
[2019-03-16] MEDS ORDERED: Ondansetron PF 4 MG/2 ML Vial IVP PRN (18:13)
[2019-03-16] MEDS ORDERED: Ondansetron ODT 4 MG TAB SL PRN (18:13)
[2019-03-16] MEDS ORDERED: Acetaminophen 325 MG TAB PO PRN (18:23)
[2019-03-16] MEDS ORDERED: Acetaminophen 650 MG Suppository PR PRN (18:23)
[2019-03-16 18:54] VITALS: BMI 27.5
--- NOTE | 2019-03-16 19:31 | RAD ---
KUB: 03/16/2019 COMPARISON: None HISTORY: Abdominal distention FINDINGS: A paucity of bowel gas is a noted, limiting assessment. Calcifications in the right upper q uadrant noted measuring 5 mm and 4 mm respectively, which could represent right renal calculi or vascular calcifications. Clips in right upper quadrant suggest prior cholecystectomy. There is athero sclerotic calcification in the left upper quadrant and pelvis. IMPRESSION: Abdominal calcifications as above. Paucity of bowel gas noted. No evidence for dilated ga s-filled small bowel.
--- NOTE | 2019-03-16 19:41 | HP ---
CHIEF COMPLAINT: Weakness, nausea, vomiting. HISTORY OF PRESENT ILLNESS: Ms. Alex is a pleasant 59-year-old woman who presented to the emergency department today after being advised by her primary care physician of a low hemoglobin. The patient states she has been feeling significantly fatigued and weak for the last week. She has never been completely sedentary at home. On Tuesday, she began to experience sporadic nausea and vomiting. Able to tolerate small amounts of food and liquid, but vomiting sporadically. The vomiting seemed to be associated with right lower quadrant pain which the patient states was relieved after vomiting. She denies any hematemesis and states she vomited clear yellow liquid. She reports having bowel movements the last one yesterday which was soft and brown in color. Has not noted any melena or bright red blood per rectum. She was seen in the emergency department and given 1 unit of packed red blood cells. The patient states she is known to be anemic and is on iron supplement. She reports requiring a blood transfusion during a previous admission in October of last year. Denies undergoing any upper or lower endoscopic procedures in the past. She is known to have chronic CKD, stage 4, and is followed by Dr. Ricardo. At this present time, the patient denies having any abdominal pain. She denies any nausea or vomiting. Again, has not noted any blood in her stools. She does continue to feel very fatigued and worn out and was slightly better after receiving blood. Denies having any urinary symptoms. No recent fevers, but does report having constant chills and notices that she gets cold very easily. Denies any sweats. No headaches or dizziness. Has not been lightheaded. All other review of systems are negative. PAST MEDICAL HISTORY: 1. CKD, stage 4. 2. Hypothyroidism. 3. GERD. 4. Hyperlipidemia. 5. History of cervical cancer. 6. Previous TIA. 7. Diabetes mellitus type 2. 8. Hypertension. 9. COPD. 10. Asthma. PAST SURGICAL HISTORY: 1. Cholecystectomy. 2. x2. 3. Hysterectomy. 4. Right rotator cuff surgery. SOCIAL HISTORY: The patient denies any alcohol use or illicit drug use. She does not smoke, but did smoke heavily in the past. ALLERGIES: 1. CODEINE SULFATE. 2. DEMEROL. 3. PENICILLIN. 4. SULFA. CURRENT MEDICATIONS: 1. Albuterol. 2. Amlodipine. 3. Synthroid. 4. Simvastatin. 5. Ranitidine. 6. Lasix. 7. Aspirin. 8. Vitamin D. 9. Fish oil. 10. Sodium bicarbonate. 11. Plavix. 12. Ferrous sulfate. PHYSICAL EXAMINATION: GENERAL: The patient appears very thin, pale, but overall developed and in no acute distress. VITAL SIGNS: Temperature 98.1, pulse 60, respirations 14, blood pressure 128/59, and O2 saturation 93% on room air. HEENT: Normocephalic and atraumatic. Pupils are equal, round, and reactive to light. Sclerae are anicteric. NECK: Supple. LUNGS: Clear to auscultation bilaterally. CARDIAC: Regular rate and rhythm. ABDOMEN: Notable for increased abdominal girth in proportion to her size. However, the patient states she has not noticed any difference and this is stable. No bowel sounds present. Slight subcutaneous firmness felt on the right side of the abdomen. No notable masses or nodularity. Nontender. No guarding or rigidity. No renal angle tenderness. EXTREMITIES: No lower leg edema or calf tenderness. NEUROLOGIC: Alert and oriented x3. No focal deficits. Speech normal. SKIN: Dry and pale. IMPRESSION AND PLAN: Ms. Alex is a very pleasant 59-year-old woman admitted for management of the following. 1. Anemia. The patient is symptomatic with significant weakness and fatigue in the last week. She is noted to have a hemoglobin of 7.7. It appears she has been in that range in the past. She has a known history of chronic kidney disease with an acute kidney injury at present. Anemia may be associated with further worsening in her chronic kidney disease. However, her Hemoccult test was positive and she has been experiencing abdominal pain in recent days. In light of receiving a blood transfusion, Dr. Varma has advised to place a consultation from GI. She would benefit from endoscopic evaluation. 2. Acute kidney injury/chronic kidney disease. We will give gentle IV hydration. The patient has been tolerating food and liquid intake today. We will keep her n.p.o. at midnight. Consult placed with Dr. Ricardo, who is her regular boat designer. GFR is 14, normally in the 20s. Creatinine elevated at 3.28 and was 2.15 in October 2018. 3. Nausea and vomiting. The patient with associated abdominal discomfort earlier in the week, relieved with vomiting that has occurred sporadically. We will obtain an abdominal x-ray to rule out any partial or pending bowel obstruction. Especially given the fact that her abdomen does seem to be slightly distended. She is without any complaints of abdominal pain at present. We will continue to monitor. 4. Hypertension. Resume home medications and monitor blood pressure. 5. Hypothyroidism. Check TSH. Resume home medications once verified. 6. GI prophylaxis. 7. Deep venous thrombosis prophylaxis with mechanical SCDs. 8. Code status: DNI. Her surrogate decision maker is her son, Jerome Alex. The patient's case was discussed with Dr. Varma, who agrees with plan of care as described above. Job ID: [id number]
[2019-03-16] MEDS: Dextrose 5 %-0.45 % NaCl 1,000 ML IV SCH (19:47)
[2019-03-16 19:49] LABS: #Eosinphils 0.3 thou/uL (0.0-0.7); #Lymphocytes 1.1 thou/uL (1.20-3.40); #Monocytes 0.5 thou/uL (0.11-0.59); #Neutrophils 5.7 thou/uL (1.40-6.50); %Basophils 0.4 % (0.0-1.0); %Eosinophils 3.4 % (0.0-10.0); %Monocytes 6.2 % (0.0-10.0); %Neutrophils 74.9 % (42.0-75.0); Hemoglobin 7.9 g/dL (12.0-16.0); Mean Corpuscular HGB CONC 31.8 g/dL (32.0-36.0); Mean Corpuscular Hemoglobin 27.1 pg (27.0-31.0); Mean Corpuscular Volume 85.3 fL (78.0-98.0); Mean Platelet Volume 7.1 fL (7.4-10.4); Platelet Count 183 thou/uL (130-400); RBC Distribution Width 15.5 % (11.5-14.5); Red Blood Cell (RBC) Count 2.92 mill/uL (4.20-5.40); White Blood Cell (WBC) Count 7.5 thou/uL (4.8-10.8)
[2019-03-16] MEDS: Famotidine/PF 20 mg/2ml Vial SLOW IVP SCH (19:51)
[2019-03-17 06:36] LABS: #Eosinphils 0.3 thou/uL (0.0-0.7); #Lymphocytes 1.2 thou/uL (1.20-3.40); #Monocytes 0.5 thou/uL (0.11-0.59); #Neutrophils 5.1 thou/uL (1.40-6.50); %Basophils 0.2 % (0.0-1.0); %Eosinophils 4.2 % (0.0-10.0); %Lymphocytes 16.7 % (21.0-51.0); %Monocytes 6.7 % (0.0-10.0); %Neutrophils 72.2 % (42.0-75.0); Hemoglobin 7.3 g/dL (12.0-16.0); Mean Corpuscular Hemoglobin 27.2 pg (27.0-31.0); Mean Corpuscular Volume 85.1 fL (78.0-98.0); Mean Platelet Volume 7.3 fL (7.4-10.4); Platelet Count 174 thou/uL (130-400); RBC Distribution Width 15.6 % (11.5-14.5); Red Blood Cell (RBC) Count 2.66 mill/uL (4.20-5.40); White Blood Cell (WBC) Count 7.1 thou/uL (4.8-10.8)
[2019-03-17 07:00] LABS: Anion Gap 14 mmol/L (10-20); BUN (Urea Nitrogen) 45 mg/dL (9.8-20.1); Calc. Creatinine Clearance 21 mL/min (70-130); Calcium 9.3 mg/dL (7.8-10.44); Carbon Dioxide 28 mmol/L (22-29); Chloride 99 mmol/L (98-107); Estimated GFR-MDRD 16; Glucose 165 mg/dL (70-105); Potassium 4.2 mmol/L (3.5-5.1); Sodium 137 mmol/L (136-145)
[2019-03-17] MEDS ORDERED: Artificial Tears 18 DROP/0.9 ML EA EYE PRN (07:47)
[2019-03-17] MEDS ORDERED: Loperamide HCl 2 MG CAP PO PRN (07:47)
[2019-03-17] MEDS ORDERED: Ondansetron PF 4 MG/2 ML Vial IVP PRN (07:47)
[2019-03-17] MEDS ORDERED: Cepastat Lozenges 1 LOZ PO PRN (07:47)
[2019-03-17] MEDS ORDERED: Diabetic Tussin 200 MG/10 ML UDCUP PO PRN (07:47)
[2019-03-17] MEDS ORDERED: hydrALAZINE 20 MG/ML VIAL SLOW IVP PRN (07:47)
[2019-03-17] MEDS ORDERED: Loratadine 10 MG TAB PO PRN (07:47)
[2019-03-17] MEDS ORDERED: Ondansetron ODT 4 MG TAB PO PRN (07:47)
[2019-03-17] MEDS ORDERED: Senokot S 8.6-50 MG TAB PO PRN (07:47)
[2019-03-17] MEDS ORDERED: Zolpidem Tartrate 5 MG TAB PO PRN (07:47)
[2019-03-17] MEDS ORDERED: Bisacodyl 10 MG SUPP PR PRN (07:47)
[2019-03-17] MEDS ORDERED: Sodium Chloride 0.65% Nasal 44 ML BOT EA NARE PRN (07:47)
[2019-03-17] MEDS ORDERED: Eucerin (Mineral Oil/Petrolatum,White) 30 gm Jar TOP PRN (07:47)
--- NOTE | 2019-03-17 11:02 | PDOC.PN ---
- Subjective Encounter Start Date: 03/17/19 Encounter Start Time: 08:50 -: old records requested/rev Patient seen and examined. No new complaints. No overnight events just feel weak, but no bleeding from any site - Objective Resuscitation Status - Order Detail: 03/16/19 18:23 Resuscitation Status Routine Co-Sign Provider: Resuscitation Status: DNAR: NO Resuscitation Discussed with: Patient MAR Reviewed: Yes Vital Signs & Weight: Vital Signs (12 hours) Temp Pulse Resp BP BP Pulse Ox 03/17/19 08:00 94 L 03/17/19 07:08 98.3 F 52 L 18 137/54 L 90 L 03/17/19 04:00 98.7 F 69 18 142/56 H 94 L 03/17/19 00:34 98.6 F 65 20 137/55 L 92 L Weight Weight 145 lb 9.6 oz I&O: 03/16/19 03/17/19 03/18/19 06:59 06:59 06:59 Intake Total 1121 Balance 1121 Result Diagrams: 03/17/19 06:06 03/17/19 06:06 Additional Labs: Accuchecks 03/17/19 03/16/19 04:43 21:44 POC Glucose 180 H 257 H Phys Exam - Physical Examination Constitutional: NAD HEENT: PERRLA, moist MMs, sclera anicteric Neck: no JVD, supple Respiratory: no wheezing, no rales, no rhonchi Cardiovascular: RRR, no significant murmur, no rub Gastrointestinal: soft, non-tender, no distention, positive bowel sounds Musculoskeletal: no edema, pulses present Neurological: non-focal, normal sensation, moves all 4 limbs Lymphatic: no nodes Psychiatric: normal affect, A&O x 3 Skin: no rash, normal turgor Dx/Plan (1) Symptomatic anemia Code(s): D64.9 - ANEMIA, UNSPECIFIED Status: Acute (2) Anemia of renal disease Code(s): N18.9 - CHRONIC KIDNEY DISEASE, UNSPECIFIED; D63.1 - ANEMIA IN CHRONIC KIDNEY DISEASE Status: Chronic (3) CKD (chronic kidney disease) stage 4, GFR 15-29 ml/min Code(s): N18.4 - CHRONIC KIDNEY DISEASE, STAGE 4 (SEVERE) Status: Chronic Comment: (4) DM type 2 (diabetes mellitus, type 2) Status: Chronic (5) HLD (hyperlipidemia) Code(s): E78.5 - HYPERLIPIDEMIA, UNSPECIFIED Status: Chronic (6) HTN (hypertension) Code(s): I10 - ESSENTIAL (PRIMARY) HYPERTENSION Status: Chronic (7) Hypothyroidism Code(s): E03.9 - HYPOTHYROIDISM, UNSPECIFIED Status: Chronic (8) Nephrotic syndrome Code(s): N04.9 - NEPHROTIC SYNDROME WITH UNSPECIFIED MORPHOLOGIC CHANGES Status: Chronic (9) Tobacco abuse Code(s): Z72.0 - TOBACCO USE Status: Chronic - Plan cont current plan of care * start clear liquid diet * 1 unit PRBC given * will repeat labs tomorrow * GI to decide if any procedure needed * medication reviewed as below * symptomatic treatment * home meds reconciled. Review of Systems - Review of Systems ENT: negative: Ear Pain, Ear Discharge, Nose Pain, Nose Discharge, Nose Congestion, Mouth Pain, Mouth Swelling, Throat Pain, Throat Swelling, Other Respiratory: negative: Cough, Dry, Shortness of Breath, Hemoptysis, SOB with Excertion, Pleuritic Pain, Sputum, Wheezing Cardiovascular: negative: chest pain, palpitations, orthopnea, paroxysmal nocturnal dyspnea, edema, light headedness, other Gastrointestinal: negative: Nausea, Vomiting, Abdominal Pain, Diarrhea, Constipation, Melena, Hematochezia, Other Genitourinary: negative: Dysuria, Frequency, Incontinence, Hematuria, Retention , Other Musculoskeletal: negative: Neck Pain, Shoulder Pain, Arm Pain, Back Pain, Hand Pain, Leg Pain, Foot Pain, Other - Medications/Allergies Allergies/Adverse Reactions: Allergies Allergy/AdvReac Type Severity Reaction Status Date / Time codeine Allergy Verified 09/25/18 12:44 meperidine HCl [From Demerol] Allergy Verified 09/25/18 12:44 Penicillins Allergy Verified 09/25/18 12:44 sulfamethoxazole Allergy Verified 09/25/18 12:44 [From Bactrim] trimethoprim [From Bactrim] Allergy Verified 09/25/18 12:44 Medications: Current Medications Acetaminophen (Tylenol) 650 mg PO Q4H PRN PRN Reason: Headache/Fever/Mild Pain (1-3) Artificial Tears (Tears Naturale) 2 drop EA EYE PRN PRN PRN Reason: Dry Eyes Bisacodyl (Dulcolax) 10 mg [place] DAILYPRN PRN PRN Reason: Constipation Famotidine (Pepcid) 20 mg SLOW IVP QPM [facility] Last Admin: 03/16/19 19:51 Dose: 20 mg Guaifenesin (Robitussin Sf) 200 mg PO Q4H PRN PRN Reason: Cough Hydralazine HCl (Apresoline) 10 mg SLOW IVP Q4H PRN PRN Reason: SBP > 180 and HR < 70 Dextrose/Sodium Chloride (D5 1/2 Ns) 1,000 mls @ 50 mls/hr IV .Q20H [facility] Last Admin: 03/16/19 19:47 Dose: 1,000 mls Loperamide HCl (Imodium) 2 mg PO PRN PRN PRN Reason: Diarrhea/Loose Stools Loratadine (Claritin) 10 mg PO DAILYPRN PRN PRN Reason: Sinus Symptoms Mineral Oil/White Petrolatum (Eucerin Cream) 0 gm TOP BIDPRN PRN PRN Reason: Dry Skin Ondansetron HCl (Zofran Odt) 4 mg PO Q6H PRN PRN Reason: Nausea/Vomiting Ondansetron HCl (Zofran) 4 mg IVP Q6H PRN PRN Reason: Nausea/Vomiting Senna/Docusate Sodium (Senokot S) 2 tab PO BID PRN PRN Reason: Constipation Sodium Chloride (Flush - Normal Saline) 10 ml IVF Q12HR PRN PRN Reason: Saline Flush Last Admin: 03/16/19 19:47 Dose: 10 ml Sodium Chloride (Flush - Normal Saline) 10 ml IVF PRN PRN PRN Reason: Saline Flush Sodium Chloride ([place] Nasal [place] 0.65%) 0 ml EA NARE QIDPRN PRN PRN Reason: Nasal Congestion Throat Lozenges (Cepastat Lozenges) 1 aide PO Q2H PRN PRN Reason: Sore Throat Zolpidem Tartrate (Ambien) 5 mg PO HSPRN PRN PRN Reason: Insomnia
[2019-03-17] MEDS: Dextrose 5 %-0.45 % NaCl 1,000 ML IV SCH (14:23)
--- NOTE | 2019-03-17 20:19 | CON ---
DATE OF CONSULTATION: REASON FOR CONSULTATION: Elevated creatinine. HISTORY OF PRESENT ILLNESS: This is a 59-year-old female presented to the hospital with nausea, vomiting, and weakness. The patient's creatinine was 2.3, after hydration, improved . The patient denies no headache, numbness, tingling, or weakness. Denies any nausea, vomiting, or chest pain. PAST MEDICAL HISTORY: Significant for CKD stage 3, hypothyroidism, hyperlipidemia, cervical cancer, TIA, diabetes mellitus, hypertension, COPD, asthma, cholecystectomy, , hysterectomy, and right rotator cuff. SOCIAL HISTORY: No alcohol or drug use. FAMILY HISTORY: Negative for ESRD. ALLERGIES: REVIEWED. HOME MEDICATIONS: List reviewed. HOSPITAL MEDICATIONS: List reviewed. REVIEW OF SYSTEMS: A 15-point review of systems was performed and negative except for positives noted above. GENERAL: HEAD: NECK: No swelling or lumps. NOSE: No epistaxis or discharge. EYES: No diplopia or pain. RESPIRATORY: CARDIOVASCULAR: GASTROINTESTINAL: /HOSPITAL PERSONNEL DIRECTOR: MUSCULOSKELETAL: No joint pain. NEUROPSYCHIATIC SYSTEMS: No suicidal ideation. No ideation. SKIN: Denies any rash or ulcer. CONSTITUTIONAL: No fever or chills. PHYSICAL EXAMINATION: CONSTITUTIONAL: The patient is awake and alert. VITAL SIGNS: Afebrile. Pulse 50, breathing 16, and blood pressure 122/59. GENERAL APPEARANCE AND MENTAL STATUS: Fair. HEAD/NECK: Normocephalic. Atraumatic. EYES: EOMI. No deformity. EARS: Clear. No ulcers. NOSE: Intact. No lesions. MOUTH: Clear. No discharge. THROAT: Clear. No exudate. LUNGS: Clear. No crackles. CARDIAC: S1, S2. No rub. ABDOMEN: Benign. Bowel sounds positive. GENITALIA/RECTUM: Castillo absent. BACK/EXTREMITIES: Edema 0+. NEUROLOGICAL: Alert and motor intact. SKIN: LYMPHATICS: ASSESSMENT AND RECOMMENDATION: Acute kidney injury with chronic kidney disease due to cardiorenal syndrome. Hypertension, stable. Anemia, we would recommend transfusion and starting the patient on Epogen 10,000 units. No indication for dialysis. Chronic kidney disease stage 4, stable . Job ID: [id number]
[2019-03-17] MEDS: Atorvastatin Calcium 10 MG TAB PO SCH (20:27)
[2019-03-17] MEDS: Fish Oil 1,000 MG CAP PO SCH (20:27)
[2019-03-17] MEDS: Sodium Bicarbonate Tab 325 MG TAB PO SCH (20:27)
[2019-03-17] MEDS: Famotidine/PF 20 mg/2ml Vial SLOW IVP SCH (20:28)
[2019-03-17] MEDS: Carvedilol 6.25 MG TAB PO SCH (20:28)
[2019-03-17] MEDS ORDERED: EPA PO SCH (21:00)
[2019-03-17] MEDS ORDERED: Non-Formulary Item 1 EACH (Lovastatin [Lovastatin] 40 MG) PO SCH (21:00)
[2019-03-17] MEDS ORDERED: Non-Formulary Item 1 EACH (Cholecalciferol (Vitamin D3) [Vitamin D3] 2,000 UNIT) PO SCH (21:00)
[2019-03-17] MEDS ORDERED: DHA PO SCH (21:00)
[2019-03-17] MEDS ORDERED: Non-Formulary Item 1 EACH (Carvedilol [Carvedilol] 12.5 MG) PO SCH (21:00)
[2019-03-17] MEDS ORDERED: FISH OIL PO SCH (21:00)
--- NOTE | 2019-03-17 21:28 | CON ---
DATE OF CONSULTATION: 03/17/2019 REASON FOR CONSULTATION: Right lower quadrant abdominal pain, nausea/vomiting, positive FOBT. CONSULTING PROVIDER: Ms. Amanda Silva. HISTORY OF PRESENT ILLNESS: The patient is a 59-year-old female with past medical history of chronic kidney disease stage 4, with anemia of renal disease, hypothyroidism, GERD, hyperlipidemia, diabetes, hypertension, COPD, asthma, recent TIA, and cervical cancer, presenting from her PCPs office for anemia. The patient was recently evaluated by her primary care physician and during routine labs was noted to have a significantly low hemoglobin coupled with symptoms of increased fatigue and weakness for the last week with this decreased H and H, it prompted her PCP to advise her to go to the ER for further evaluation. Again, while in the ED, she was noted to have significantly decreased H and H and was subsequently admitted to the hospital for further evaluation. Upon questioning the patient, she states that for the last 2 weeks she has been having increased right lower quadrant abdominal pain characterized as a cramping type sensation, nonradiating, is intermittent, and will last for approximately 30 to 45 minutes at a time and reach a severity of 4/10. The pain is worse with increased physical activity/movement and not having a bowel movement, better with lying still and having a bowel movement. Over the last couple weeks, she has also been having nausea and vomiting associated with this increased right lower quadrant abdominal pain and has had a change in her dietary habits with decreased appetite and poor dietary intake during this time. As such, she has lost approximately 5 to 7 pounds over the last week. Upon speaking with the patient, she states that normally she would have approximately one solid bowel movement every 3 to 4 days with no difficulty with defecation, however with the appearance of her "stroke" 2 weeks ago she has been having more diarrhea like bowel movements, characterizes having approximately 3 to 4 semi-solid/liquid bowel movements per day with no difficulty with defecation. During this entire time, she denies any fevers, chills, hematemesis, melena, hematochezia, dysphagia, or odynophagia. Of note, the patient states that she had a colonoscopy within the last 5 to 10 years (although she can't remember when) with Dr. Melvin Wilcox. However, upon review of our electronic medical record system, I could not find any record of this occurring. REVIEW OF SYSTEMS: A 10-category review of systems was obtained with all responses negative except for the pertinent positives as listed in HPI. PAST MEDICAL HISTORY: As per HPI. PAST SURGICAL HISTORY: Cholecystectomy, x2, hysterectomy, right rotator cuff repair. FAMILY HISTORY: Denies any GI malignancies. SOCIAL HISTORY: Denies any tobacco, alcohol, or illicit drug use. OUTPATIENT MEDICATIONS: Reviewed. ALLERGIES: CODEINE, DEMEROL, PENICILLIN, AND SULFA. PHYSICAL EXAMINATION: VITAL SIGNS: Temperature 98.4, pulse 59, blood pressure 131/49, respiratory rate 19, saturating 93% on room air. GENERAL: The patient is lying in bed, in no acute distress. Alert and oriented x4. HEENT: Normocephalic, atraumatic. No JVD or scleral icterus noted. CARDIOVASCULAR: Regular rate and rhythm with a 3/6 systolic murmur best heard at the left lower sternal border. No discernible gallops or rubs. RESPIRATORY: Clear to auscultation bilaterally with no discernible wheezes or rales. ABDOMEN: Normoactive bowel sounds. Soft, nondistended. Tenderness to palpation in all abdominal quadrants. EXTREMITIES: No cyanosis, clubbing, or edema. LABORATORY DATA: CBC with a white blood cell count of 7.1, hemoglobin 7.3, hematocrit 22.6, platelets 174. INR 1.3. Chemistry with a sodium of 137, potassium 4.2, chloride 99, CO2 of 28, BUN 45, creatinine 3.05, glucose 165, AST 29, ALT 17, alkaline phosphatase 228, total bilirubin 0.7, iron 25, ferritin 457, TIBC 266. IMAGING DATA: KUB was obtained on 03/16/2019, which showed abdominal calcifications in the right upper quadrant measuring 5 mm and 4 mm, which could represent right renal calculi or vascular calcifications. There was a relative paucity of bowel gas within the large or small bowels. Per my interpretation of the x-ray, there was a significant amount of stool within the left colon. ASSESSMENT AND PLAN: The patient is a 59-year-old female with past medical history of chronic kidney disease stage 4, hypothyroidism, GERD, hyperlipidemia, diabetes, hypertension, COPD, asthma, cervical cancer, recent TIA, and anemia of renal disease presenting with slight worsening of her anemia of renal disease as well as right lower quadrant abdominal pain. Anemia of renal disease. The patient is presenting with a recent onset of increased shortness of breath and weakness with both rest and exertion for which her primary care physician and drawn routine labs. She was noted to have a mild worsening of her anemia concerning for gastrointestinal blood loss or blood loss in general. While in the ER, she did have a positive fecal occult blood test, but she does not endorse any overt signs of gastrointestinal bleeding. Based on her iron indices obtained during this admission and before the infusion of red blood cells, her current iron indices are consistent with anemia of renal disease/chronic disease and not iron deficiency anemia, which would be seen with chronic gastrointestinal blood loss. The positive fecal occult blood test is also a poor test for evaluation of current gastrointestinal bleeding, but is rather a colorectal cancer screening test and should not be used for the evaluation of ongoing gastrointestinal bleeding. At this time, the most likely etiology for her worsening anemia would be the anemia of renal disease that she has chronically had with no evidence of iron deficiency anemia consistent with blood loss of any sort. Recommendations: 1. Would continue to trend H and H and transfuse as necessary to maintain an H and H of 7/21. 2. Continue to monitor clinically for signs of active GI bleeding. 3. I currently do not have any plans on performing a screening colonoscopy on an inpatient at this time, rather would seek to evaluate the patient as an outpatient and perform the colonoscopy at that time. Right lower quadrant and abdominal pain. The patient is presenting with a 2-week history of increased right lower quadrant abdominal pain characterized as a cramping type sensation, lasting for 30 to 45 minutes and reaching a severity of 4/10. This is also associated with a change in her bowel habits going from having significant constipation where she would have one bowel movement every 3 to 4 days, to having approximately 3 to 4 bowel movements every day that was liquid in consistency. Upon palpation of her abdomen, she has tenderness in all abdominal quadrants and when coupled with her recent KUB is concerning for the presence of constipation with possible encopresis type picture. When speaking with the patient about her recent diet, it has been fairly poor since her TIA 2 weeks ago, which could ultimately result in her current bowel pattern. Recommendations: 1. Would attempt to avoid any narcotics during this admission which could potentially worsen her abdominal pain and/or constipation. 2. Would obtain infectious stool workup for her recent change in diarrhea for possible infectious etiology of her pain. 3. Would place the patient on fiber supplementation as part of a stool bulking type measure. We will continue to follow. Please call with any questions. Job ID: [id number]
[2019-03-18] MEDS: Levothyroxine 175 MCG TAB PO SCH (05:23)
[2019-03-18] MEDS ORDERED: PATIROMER CALCIUM SORBITEX 8.4 GM PO SCH (07:30)
[2019-03-18] MEDS ORDERED: Patiromer Calcium Sorbitex [Veltassa] 8.4 GM PO SCH (07:30)
[2019-03-18] MEDS ORDERED: VITAMIN B COMPLEX PO SCH (09:00)
[2019-03-18] MEDS ORDERED: Levothyroxine 150 MCG TAB PO SCH (09:00)
[2019-03-18] MEDS ORDERED: Non-Formulary Item 1 EACH (Sertraline Hcl [Sertraline Hcl] 50 MG) PO SCH (09:00)
[2019-03-18] MEDS ORDERED: Non-Formulary Item 1 EACH (Cyanocobalamin (Vitamin B-12) [Vitamin B12] 1,000 MCG) PO SCH (09:00)
--- NOTE | 2019-03-18 09:34 | PDOC.PN ---
- Subjective Encounter Start Date: 03/18/19 Encounter Start Time: 08:30 Patient seen and examined. No new complaints. No overnight events - Objective Resuscitation Status - Order Detail: 03/16/19 18:23 Resuscitation Status Routine Co-Sign Provider: Resuscitation Status: DNAR: NO Resuscitation Discussed with: Patient MAR Reviewed: Yes Vital Signs & Weight: Vital Signs (12 hours) Temp Pulse Resp BP BP Pulse Ox 03/18/19 08:15 98.8 F 62 20 144/56 H 90 L 03/18/19 05:23 99.0 F 68 18 123/55 L 92 L Weight Admit Weight 145 lb 9.6 oz Weight 145 lb 9.6 oz I&O: 03/17/19 03/18/19 03/19/19 06:59 06:59 06:59 Intake Total 1121 893 Balance 1121 893 Result Diagrams: 03/17/19 06:06 03/17/19 06:06 Additional Labs: Accuchecks 03/18/19 03/17/19 03/17/19 05:22 22:50 15:35 POC Glucose 217 H 217 H 164 H 03/17/19 11:40 POC Glucose 196 H Phys Exam - Physical Examination Constitutional: NAD HEENT: PERRLA, moist MMs, sclera anicteric Neck: no JVD, supple Respiratory: no wheezing, no rales, no rhonchi Cardiovascular: RRR, no significant murmur, no rub Gastrointestinal: soft, non-tender, no distention, positive bowel sounds Musculoskeletal: no edema, pulses present Neurological: non-focal, normal sensation Lymphatic: no nodes Psychiatric: normal affect, A&O x 3 Skin: no rash, normal turgor Dx/Plan (1) Symptomatic anemia Code(s): D64.9 - ANEMIA, UNSPECIFIED Status: Acute (2) Anemia of renal disease Code(s): N18.9 - CHRONIC KIDNEY DISEASE, UNSPECIFIED; D63.1 - ANEMIA IN CHRONIC KIDNEY DISEASE Status: Chronic (3) CKD (chronic kidney disease) stage 4, GFR 15-29 ml/min Code(s): N18.4 - CHRONIC KIDNEY DISEASE, STAGE 4 (SEVERE) Status: Chronic Comment: (4) DM type 2 (diabetes mellitus, type 2) Status: Chronic (5) HLD (hyperlipidemia) Code(s): E78.5 - HYPERLIPIDEMIA, UNSPECIFIED Status: Chronic (6) HTN (hypertension) Code(s): I10 - ESSENTIAL (PRIMARY) HYPERTENSION Status: Chronic (7) Hypothyroidism Code(s): E03.9 - HYPOTHYROIDISM, UNSPECIFIED Status: Chronic (8) Nephrotic syndrome Code(s): N04.9 - NEPHROTIC SYNDROME WITH UNSPECIFIED MORPHOLOGIC CHANGES Status: Chronic (9) Tobacco abuse Code(s): Z72.0 - TOBACCO USE Status: Chronic - Plan cont current plan of care * medication reviewed as below * symptomatic treatment * no plan for procedure as per GI, will be done outpt * nephrology following * will repeat labs tomorrow * expecting discharge tomorrow. * dc ivf Review of Systems - Review of Systems ENT: negative: Ear Pain, Ear Discharge, Nose Pain, Nose Discharge, Nose Congestion, Mouth Pain, Mouth Swelling, Throat Pain, Throat Swelling, Other Respiratory: negative: Cough, Dry, Shortness of Breath, Hemoptysis, SOB with Excertion, Pleuritic Pain, Sputum, Wheezing Cardiovascular: negative: chest pain, palpitations, orthopnea, paroxysmal nocturnal dyspnea, edema, light headedness, other Gastrointestinal: negative: Nausea, Vomiting, Abdominal Pain, Diarrhea, Constipation, Melena, Hematochezia, Other Genitourinary: negative: Dysuria, Frequency, Incontinence, Hematuria, Retention , Other Musculoskeletal: negative: Neck Pain, Shoulder Pain, Arm Pain, Back Pain, Hand Pain, Leg Pain, Foot Pain, Other - Medications/Allergies Allergies/Adverse Reactions: Allergies Allergy/AdvReac Type Severity Reaction Status Date / Time codeine Allergy Verified 09/25/18 12:44 meperidine HCl [From Demerol] Allergy Verified 09/25/18 12:44 Penicillins Allergy Verified 09/25/18 12:44 sulfamethoxazole Allergy Verified 09/25/18 12:44 [From Bactrim] trimethoprim [From Bactrim] Allergy Verified 09/25/18 12:44 Medications: Current Medications Acetaminophen (Tylenol) 650 mg PO Q4H PRN PRN Reason: Headache/Fever/Mild Pain (1-3) Amlodipine Besylate (Norvasc) 5 mg PO DAILY [facility] Artificial Tears (Tears Naturale) 2 drop EA EYE PRN PRN PRN Reason: Dry Eyes Atorvastatin Calcium (Lipitor) 10 mg PO HS [facility] Last Admin: 03/17/19 20:27 Dose: 10 mg Bisacodyl (Dulcolax) 10 mg [place] DAILYPRN PRN PRN Reason: Constipation Carvedilol (Coreg) 12.5 mg PO BID [facility] Last Admin: 03/17/19 20:28 Dose: 12.5 mg Cholecalciferol (Vitamin D3) 2,000 units PO BID [facility] Last Admin: 03/17/19 20:27 Dose: 2,000 units Cyanocobalamin (Vitamin B-12) 1,000 mcg PO DAILY [facility] Famotidine (Pepcid) 20 mg SLOW IVP QPM [facility] Last Admin: 03/17/19 20:28 Dose: 20 mg Fish Oil (Fish Oil) 1,000 mg PO BID [facility] Last Admin: 03/17/19 20:27 Dose: 1,000 mg Guaifenesin (Robitussin Sf) 200 mg PO Q4H PRN PRN Reason: Cough Hydralazine HCl (Apresoline) 10 mg SLOW IVP Q4H PRN PRN Reason: SBP > 180 and HR < 70 Levothyroxine Sodium (Synthroid) 175 mcg PO 0600 [facility] Last Admin: 03/18/19 05:23 Dose: 175 mcg Loperamide HCl (Imodium) 2 mg PO PRN PRN PRN Reason: Diarrhea/Loose Stools Loratadine (Claritin) 10 mg PO DAILYPRN PRN PRN Reason: Sinus Symptoms Methylcellulose (Citrucel) 500 mg PO DAILY [facility] Mineral Oil/White Petrolatum (Eucerin Cream) 0 gm TOP BIDPRN PRN PRN Reason: Dry Skin Multivitamins/Zinc (Stress 600 With Zinc) 1 tab PO DAILY [facility] Ondansetron HCl (Zofran Odt) 4 mg PO Q6H PRN PRN Reason: Nausea/Vomiting Ondansetron HCl (Zofran) 4 mg IVP Q6H PRN PRN Reason: Nausea/Vomiting Patiromer Calcium Sorbitex [Veltassa] 8.4 Gm 0 each PO DAILY-AC [facility] Senna/Docusate Sodium (Senokot S) 2 tab PO BID PRN PRN Reason: Constipation Sertraline HCl (Zoloft) 50 mg PO DAILY [facility] Sodium Bicarbonate (Bicarbonate, Sodium) 650 mg PO BID [facility] Last Admin: 03/17/19 20:27 Dose: 650 mg Sodium Chloride (Flush - Normal Saline) 10 ml IVF Q12HR PRN PRN Reason: Saline Flush Last Admin: 03/16/19 19:47 Dose: 10 ml Sodium Chloride (Flush - Normal Saline) 10 ml IVF PRN PRN PRN Reason: Saline Flush Sodium Chloride ([place] Nasal [place] 0.65%) 0 ml EA NARE QIDPRN PRN PRN Reason: Nasal Congestion Throat Lozenges (Cepastat Lozenges) 1 aide PO Q2H PRN PRN Reason: Sore Throat Zolpidem Tartrate (Ambien) 5 mg PO HSPRN PRN PRN Reason: Insomnia
[2019-03-18] MEDS: Fish Oil 1,000 MG CAP PO SCH ×2 (09:37→20:41)
[2019-03-18] MEDS: Carvedilol 6.25 MG TAB PO SCH ×2 (09:38→20:40)
[2019-03-18] MEDS: Sodium Bicarbonate Tab 325 MG TAB PO SCH ×2 (09:38→20:41)
[2019-03-18] MEDS: Amlodipine 5 MG TAB PO SCH (09:38)
[2019-03-18] MEDS: Citrucel 500 MG TAB PO SCH (09:38)
[2019-03-18] MEDS: Stress 600 With Zinc 1 TAB PO SCH (09:39)
[2019-03-18] MEDS: Cyanocobalamin (Vitamin B-12) 1,000 MCG TAB PO SCH (09:44)
[2019-03-18 10:52] LABS: Anion Gap 14 mmol/L (10-20); BUN (Urea Nitrogen) 44 mg/dL (9.8-20.1); Calc. Creatinine Clearance 21 mL/min (70-130); Calcium 9.5 mg/dL (7.8-10.44); Carbon Dioxide 28 mmol/L (22-29); Chloride 101 mmol/L (98-107); Estimated GFR-MDRD 16; Glucose 185 mg/dL (70-105); Potassium 4.1 mmol/L (3.5-5.1); Sodium 139 mmol/L (136-145)
[2019-03-18] MEDS ORDERED: Dextrose 50% Abboject 50 ML SYRINGE IVP PRN (12:08)
[2019-03-18] MEDS ORDERED: Dextrose 5% in Water 1,000 ML IV PRN (12:08)
[2019-03-18] MEDS: Vancomycin HCl 25 MG/ML Oral PO SCH ×3 (12:57→23:25)
--- NOTE | 2019-03-18 13:05 | PRG ---
DATE OF SERVICE: 03/18/2019 SUBJECTIVE: A 59-year-old female being seen for acute kidney injury. The patient denied any nausea, vomiting, or chest pain. OBJECTIVE: CONSTITUTIONAL: On examination, the patient is awake and alert. VITAL SIGNS: Afebrile, pulse 61, breathing 16, blood pressure 123/55. GENERAL APPEARANCE AND MENTAL STATUS: Fair. HEAD/NECK: Normocephalic. Atraumatic. EYES: EOMI. No deformity. EARS: Clear. No ulcers. NOSE: Intact. No lesions. MOUTH: Clear. No discharge. THROAT: Clear. No exudate. LUNGS: Clear. No crackles. CARDIAC: S1, S2. No rub. ABDOMEN: Benign. Bowel sounds positive. GENITALIA/RECTUM: Castillo absent. BACK/EXTREMITIES: Edema 0+. NEUROLOGICAL: Alert and motor intact. SKIN: LYMPHATICS: LABORATORY DATA: Labs show hemoglobin 7.3, creatinine 3.05. ASSESSMENT AND PLAN: 1. Chronic kidney disease stage 4, with acute kidney injury stable. 2. Hypertension, stable. 3. Anemia stable. No indication for dialysis. 4. We will follow renal function closely. Job ID: [id number]
--- NOTE | 2019-03-18 17:32 | PRG ---
DATE OF SERVICE: 03/18/2019 REASON FOR CONSULTATION: Right lower quadrant abdominal pain, nausea, vomiting, diarrhea. SUBJECTIVE: Today, the patient states that she continues to have right lower quadrant abdominal pain that is unchanged in location or severity. However, she has not had any further episodes of nausea or vomiting since she has been here nor has she had any other episodes of diarrhea since initiation of a higher fiber diet. Currently, she denies any nausea, vomiting, fevers, chills, hematemesis, melena , or hematochezia. OBJECTIVE: VITAL SIGNS: Temperature 98.8, pulse 61, blood pressure 144/56, respiratory rate 20, and saturating 93% on room air. GENERAL: The patient was lying in bed, in no acute distress. Alert and oriented x4. CARDIOVASCULAR: Regular rate and rhythm with a 3/6 systolic murmur best heard at the left lower sternal border. RESPIRATORY: Clear to auscultation bilaterally. ABDOMEN: Normoactive bowel sounds. Soft, nondistended. Mild tenderness to palpation in all abdominal quadrants. EXTREMITIES: No cyanosis, clubbing, or edema. LABORATORY DATA: Infectious stool studies were negative except for Clostridium difficile antigen positive, but toxin negative. IMAGING DATA: No current GI imaging is available for review. ASSESSMENT AND PLAN: The patient is a 59-year-old female with past medical history of chronic kidney disease, hypothyroidism, gastroesophageal reflux disease, hyperlipidemia, diabetes, hypertension, chronic obstructive pulmonary disease, asthma, cervical cancer, recent transient ischemic attack, and anemia of renal disease, presenting with worsening of her anemia of renal disease as well as right lower quadrant abdominal pain. Anemia of renal disease: The patient initially presented with a recent onset of increased shortness of breath and weakness at both rest and exertion with routine labs showing a worsening of her anemia. Repeat iron indices during this admission and before the infusion of PRBCs showed that it was more consistent with anemia of chronic disease/renal disease and not an iron deficiency anemia. She did have FOBT testing during this admission as well that was positive, but given her stable H and H and lack of overt gastrointestinal bleeding, this is most likely a false positive for active gastrointestinal bleed (this is a colorectal cancer screening test anyway). Recommendations: 1. We would continue to trend H and H and transfuse as necessary to maintain an H and H of 7/21. 2. Continue to monitor clinically for signs of active gastrointestinal bleeding. 3. Given that this is anemia of renal disease, there is no indication for urgent endoscopy, instead with positive FOBT, this patient can be screened as an outpatient. Right lower quadrant abdominal pain: The patient is presenting with a 2-week history of increased right lower quadrant abdominal pain characterized as a cramping type sensation and associated with a change in her bowel habits from constipation to diarrhea. Recent KUB is consistent with the presence of constipation, which could then lead itself toward an encopresis type picture. With the institution of a higher fiber diet, she has not had any additional bowel movements, which again lead itself toward the diagnosis of constipation. However, infectious stool studies were performed during this admission and positive for C diff antigen rather than in the presence of toxin though. At this point, I think the C diff antigen is unrelated to her current clinical picture, but instead this is more indicative of encopresis. Recommendations: 1. Would attempt to avoid any narcotics during this admission, which could potentially worsen her abdominal pain and/or constipation. 2. Continue fiber supplementation. 3. We will consider placing the patient on MiraLAX in addition to fiber supplementation for encopresis type picture. We will continue to follow. Please call with any questions. Job ID: [id number] MTDD
[2019-03-18] MEDS: Insulin Regular 300 UNITS/3 ML VIAL SC PRN ×2 (17:40→20:44)
[2019-03-18] MEDS: Atorvastatin Calcium 10 MG TAB PO SCH (20:39)
[2019-03-18] MEDS: Famotidine/PF 20 mg/2ml Vial SLOW IVP SCH (20:42)
[2019-03-19] MEDS: Vancomycin HCl 25 MG/ML Oral PO SCH ×3 (05:47→17:19)
[2019-03-19] MEDS: Levothyroxine 175 MCG TAB PO SCH (05:47)
[2019-03-19] MEDS: Insulin Regular 300 UNITS/3 ML VIAL SC PRN ×4 (05:48→21:36)
[2019-03-19 06:26] LABS: #Eosinphils 0.2 thou/uL (0.0-0.7); #Lymphocytes 1.2 thou/uL (1.20-3.40); #Monocytes 0.5 thou/uL (0.11-0.59); #Neutrophils 4.8 thou/uL (1.40-6.50); %Basophils 0.4 % (0.0-1.0); %Eosinophils 3.4 % (0.0-10.0); %Lymphocytes 18.3 % (21.0-51.0); Hemoglobin 7.1 g/dL (12.0-16.0); Mean Corpuscular HGB CONC 31.8 g/dL (32.0-36.0); Mean Corpuscular Hemoglobin 27.4 pg (27.0-31.0); Mean Corpuscular Volume 86.1 fL (78.0-98.0); Mean Platelet Volume 7.1 fL (7.4-10.4); Platelet Count 166 thou/uL (130-400); RBC Distribution Width 15.7 % (11.5-14.5); White Blood Cell (WBC) Count 6.8 thou/uL (4.8-10.8)
[2019-03-19 06:51] LABS: ALT (SGPT) 12 U/L (8-55); AST (SGOT) 22 U/L (5-34); Albumin 2.9 g/dL (3.5-5.0); Alkaline Phosphatase 190 U/L (40-150); Anion Gap 14 mmol/L (10-20); BUN (Urea Nitrogen) 40 mg/dL (9.8-20.1); Bilirubin, Total 0.5 mg/dL (0.2-1.2); Calc. Creatinine Clearance 22 mL/min (70-130); Calcium 9.3 mg/dL (7.8-10.44); Carbon Dioxide 26 mmol/L (22-29); Chloride 100 mmol/L (98-107); Estimated GFR-MDRD 17; Globulin 3.4 g/dL (2.4-3.5); Glucose 175 mg/dL (70-105); Potassium 4.1 mmol/L (3.5-5.1); Protein, Total 6.3 g/dL (6.0-8.3); Sodium 136 mmol/L (136-145)
[2019-03-19] MEDS: Fish Oil 1,000 MG CAP PO SCH ×2 (07:54→21:35)
[2019-03-19] MEDS: Sodium Bicarbonate Tab 325 MG TAB PO SCH ×2 (07:54→21:34)
[2019-03-19] MEDS: Cyanocobalamin (Vitamin B-12) 1,000 MCG TAB PO SCH (07:54)
[2019-03-19] MEDS: Stress 600 With Zinc 1 TAB PO SCH (07:54)
[2019-03-19] MEDS: Carvedilol 6.25 MG TAB PO SCH ×2 (07:55→21:34)
[2019-03-19] MEDS: Amlodipine 5 MG TAB PO SCH (07:55)
[2019-03-19] MEDS: Citrucel 500 MG TAB PO SCH (07:55)
--- NOTE | 2019-03-19 11:32 | PDOC.PN ---
- Subjective Encounter Start Date: 03/19/19 Encounter Start Time: 08:20 Patient seen and examined. No new complaints. No overnight events pt still has diarrhoea - Objective Resuscitation Status - Order Detail: 03/16/19 18:23 Resuscitation Status Routine Co-Sign Provider: Resuscitation Status: DNAR: NO Resuscitation Discussed with: Patient MAR Reviewed: Yes Vital Signs & Weight: Vital Signs (12 hours) Temp Pulse Resp BP BP Pulse Ox 03/19/19 08:00 92 L 03/19/19 07:51 98.9 F 63 16 149/55 H 92 L 03/19/19 04:08 99 F 63 16 155/62 H 92 L 03/19/19 00:05 99.1 F 65 18 146/57 H 91 L Weight Admit Weight 145 lb 9.6 oz Weight 145 lb 9.6 oz I&O: 03/18/19 03/19/19 03/20/19 06:59 06:59 06:59 Intake Total 893 1620 0 Balance 893 1620 0 Result Diagrams: 03/19/19 05:56 03/19/19 05:56 Additional Labs: Accuchecks 03/19/19 03/18/19 03/18/19 05:32 20:39 17:05 POC Glucose 205 H 236 H 208 H 03/18/19 11:32 POC Glucose 238 H Phys Exam - Physical Examination Constitutional: NAD HEENT: PERRLA, moist MMs, sclera anicteric Neck: no JVD, supple Respiratory: no wheezing, no rales, no rhonchi Cardiovascular: RRR, no significant murmur, no rub Gastrointestinal: soft, non-tender, no distention, positive bowel sounds Musculoskeletal: no edema, pulses present Neurological: non-focal, normal sensation Dx/Plan (1) Symptomatic anemia Code(s): D64.9 - ANEMIA, UNSPECIFIED Status: Acute (2) Anemia of renal disease Code(s): N18.9 - CHRONIC KIDNEY DISEASE, UNSPECIFIED; D63.1 - ANEMIA IN CHRONIC KIDNEY DISEASE Status: Chronic (3) CKD (chronic kidney disease) stage 4, GFR 15-29 ml/min Code(s): N18.4 - CHRONIC KIDNEY DISEASE, STAGE 4 (SEVERE) Status: Chronic Comment: (4) DM type 2 (diabetes mellitus, type 2) Status: Chronic (5) HLD (hyperlipidemia) Code(s): E78.5 - HYPERLIPIDEMIA, UNSPECIFIED Status: Chronic (6) HTN (hypertension) Code(s): I10 - ESSENTIAL (PRIMARY) HYPERTENSION Status: Chronic (7) Hypothyroidism Code(s): E03.9 - HYPOTHYROIDISM, UNSPECIFIED Status: Chronic (8) Nephrotic syndrome Code(s): N04.9 - NEPHROTIC SYNDROME WITH UNSPECIFIED MORPHOLOGIC CHANGES Status: Chronic (9) Tobacco abuse Code(s): Z72.0 - TOBACCO USE Status: Chronic - Plan cont current plan of care * medication reviewed as below * symptomatic treatment * today transfuse 1 unit PRBC * continue oral vancomycin. Review of Systems - Review of Systems ENT: negative: Ear Pain, Ear Discharge, Nose Pain, Nose Discharge, Nose Congestion, Mouth Pain, Mouth Swelling, Throat Pain, Throat Swelling, Other Respiratory: negative: Cough, Dry, Shortness of Breath, Hemoptysis, SOB with Excertion, Pleuritic Pain, Sputum, Wheezing Cardiovascular: negative: chest pain, palpitations, orthopnea, paroxysmal nocturnal dyspnea, edema, light headedness, other Gastrointestinal: Diarrhea. negative: Nausea, Vomiting, Abdominal Pain, Constipation, Melena, Hematochezia, Other Genitourinary: negative: Dysuria, Frequency, Incontinence, Hematuria, Retention , Other Musculoskeletal: negative: Neck Pain, Shoulder Pain, Arm Pain, Back Pain, Hand Pain, Leg Pain, Foot Pain, Other - Medications/Allergies Allergies/Adverse Reactions: Allergies Allergy/AdvReac Type Severity Reaction Status Date / Time codeine Allergy Verified 09/25/18 12:44 meperidine HCl [From Demerol] Allergy Verified 09/25/18 12:44 Penicillins Allergy Verified 09/25/18 12:44 sulfamethoxazole Allergy Verified 09/25/18 12:44 [From Bactrim] trimethoprim [From Bactrim] Allergy Verified 09/25/18 12:44 Medications: Current Medications Acetaminophen (Tylenol) 650 mg PO Q4H PRN PRN Reason: Headache/Fever/Mild Pain (1-3) Amlodipine Besylate (Norvasc) 5 mg PO DAILY [facility] Last Admin: 03/19/19 07:55 Dose: 5 mg Artificial Tears (Tears Naturale) 2 drop EA EYE PRN PRN PRN Reason: Dry Eyes Atorvastatin Calcium (Lipitor) 10 mg PO HS [facility] Last Admin: 03/18/19 20:39 Dose: 10 mg Bisacodyl (Dulcolax) 10 mg TX DAILYPRN PRN PRN Reason: Constipation Carvedilol (Coreg) 12.5 mg PO BID [facility] Last Admin: 03/19/19 07:55 Dose: 12.5 mg Cholecalciferol (Vitamin D3) 2,000 units PO BID [facility] Last Admin: 03/19/19 07:54 Dose: 2,000 units Cyanocobalamin (Vitamin B-12) 1,000 mcg PO DAILY [facility] Last Admin: 03/19/19 07:54 Dose: 1,000 mcg Dextrose/Water (Dextrose 50%) 25 gm IVP PRN PRN PRN Reason: HYPOGLYCEMIA PROTOCOL Famotidine (Pepcid) 20 mg SLOW IVP QPM [facility] Last Admin: 03/18/19 20:42 Dose: 20 mg Fish Oil (Fish Oil) 1,000 mg PO BID [facility] Last Admin: 03/19/19 07:54 Dose: 1,000 mg Glucagon (Glucagon) 1 mg IM PRN PRN PRN Reason: HYPOGLYCEMIA PROTOCOL Guaifenesin (Robitussin Sf) 200 mg PO Q4H PRN PRN Reason: Cough Hydralazine HCl (Apresoline) 10 mg SLOW IVP Q4H PRN PRN Reason: SBP > 180 and HR < 70 Dextrose/Water (D5w) 1,000 mls @ 0 mls/hr IV INF PRN PRN Reason: HYPOGLYCEMIA PROTOCOL Insulin Human Regular (Humulin R) 0 units SC .MODERATE SLIDING SC PRN; Protocol PRN Reason: MODERATE SLIDING SCALE Last Admin: 03/19/19 05:48 Dose: 4 unit Insulin Human Regular (Humulin R) 0 units SC .BEDTIME SLIDING SC PRN; Protocol PRN Reason: BEDTIME SLIDING SCALE Last Admin: 03/18/19 20:44 Dose: 2 unit Levothyroxine Sodium (Synthroid) 175 mcg PO 0600 [facility] Last Admin: 03/19/19 05:47 Dose: 175 mcg Loperamide HCl (Imodium) 2 mg PO PRN PRN PRN Reason: Diarrhea/Loose Stools Loratadine (Claritin) 10 mg PO DAILYPRN PRN PRN Reason: Sinus Symptoms Methylcellulose (Citrucel) 500 mg PO DAILY [facility] Last Admin: 03/19/19 07:55 Dose: 500 mg Mineral Oil/White Petrolatum (Eucerin Cream) 0 gm TOP BIDPRN PRN PRN Reason: Dry Skin Multivitamins/Zinc (Stress 600 With Zinc) 1 tab PO DAILY [facility] Last Admin: 03/19/19 07:54 Dose: 1 tab Ondansetron HCl (Zofran Odt) 4 mg PO Q6H PRN PRN Reason: Nausea/Vomiting Ondansetron HCl (Zofran) 4 mg IVP Q6H PRN PRN Reason: Nausea/Vomiting Patiromer Calcium Sorbitex [Veltassa] 8.4 Gm 0 each PO DAILY-[facility] Senna/Docusate Sodium (Senokot S) 2 tab PO BID PRN PRN Reason: Constipation Sertraline HCl (Zoloft) 50 mg PO DAILY [facility] Last Admin: 03/19/19 07:54 Dose: 50 mg Sodium Bicarbonate (Bicarbonate, Sodium) 650 mg PO BID [facility] Last Admin: 03/19/19 07:54 Dose: 650 mg Sodium Chloride (Flush - Normal Saline) 10 ml IVF Q12HR PRN PRN Reason: Saline Flush Last Admin: 03/16/19 19:47 Dose: 10 ml Sodium Chloride (Flush - Normal Saline) 10 ml IVF PRN PRN PRN Reason: Saline Flush Sodium Chloride ([place] Nasal [place] 0.65%) 0 ml EA NARE QIDPRN PRN PRN Reason: Nasal Congestion Throat Lozenges (Cepastat Lozenges) 1 aide PO Q2H PRN PRN Reason: Sore Throat Vancomycin HCl (First Vancomycin) 125 mg PO Q6HR [facility] Last Admin: 03/19/19 11:17 Dose: 125 mg Zolpidem Tartrate (Ambien) 5 mg PO HSPRN PRN PRN Reason: Insomnia
--- NOTE | 2019-03-19 12:26 | PRG ---
DATE OF SERVICE: 03/19/2019 SUBJECTIVE: This is a 59-year-old lady, being seen for acute kidney injury due to ATN. The patient denied nausea, vomiting, or chest pain. OBJECTIVE: CONSTITUTIONAL: The patient is awake and alert. VITAL SIGNS: Afebrile, pulse 75, breath 16, and blood pressure 149/55. GENERAL APPEARANCE AND MENTAL STATUS: Fair. HEAD/NECK: Normocephalic. Atraumatic. EYES: EOMI. No deformity. EARS: Clear. No ulcers. NOSE: Intact. No lesions. MOUTH: Clear. No discharge. THROAT: Clear. No exudate. LUNGS: Clear. No crackles. CARDIAC: S1, S2. No rub. ABDOMEN: Benign. Bowel sounds positive. GENITALIA/RECTUM: Castillo absent. BACK/EXTREMITIES: Edema 0+. NEUROLOGICAL: Alert and motor intact. SKIN: LYMPHATICS: LABORATORY STUDIES: Labs showed hemoglobin 7.1. Creatinine 2.8. ASSESSMENT: 1. Acute kidney injury due to ATN, improved. 2. Hypertension, stable. 3. Chronic kidney disease, stage 4, stable. 4. Anemia. I would recommend blood transfusion. Job ID: [id number]
[2019-03-19] MEDS: Atorvastatin Calcium 10 MG TAB PO SCH (21:34)
[2019-03-19] MEDS: Famotidine/PF 20 mg/2ml Vial SLOW IVP SCH (21:34)
[2019-03-20] MEDS: Vancomycin HCl 25 MG/ML Oral PO SCH ×2 (00:13→05:10)
[2019-03-20] MEDS: Levothyroxine 175 MCG TAB PO SCH (05:10)
[2019-03-20] MEDS: Insulin Regular 300 UNITS/3 ML VIAL SC PRN (05:12)
[2019-03-20 07:50] VITALS: BP 145/65; TEMP 98.9
[2019-03-20] MEDS: Amlodipine 5 MG TAB PO SCH (08:11)
[2019-03-20] MEDS: Stress 600 With Zinc 1 TAB PO SCH (08:12)
[2019-03-20] MEDS: Citrucel 500 MG TAB PO SCH (08:12)
[2019-03-20] MEDS: Carvedilol 6.25 MG TAB PO SCH (08:12)
[2019-03-20] MEDS: Cyanocobalamin (Vitamin B-12) 1,000 MCG TAB PO SCH (08:12)
[2019-03-20] MEDS: Fish Oil 1,000 MG CAP PO SCH (08:12)
[2019-03-20] MEDS: Sodium Bicarbonate Tab 325 MG TAB PO SCH (08:12)
[2019-03-20 08:57] LABS: #Basophils 0.1 thou/uL (0.0-0.2); #Eosinphils 0.3 thou/uL (0.0-0.7); #Lymphocytes 1.1 thou/uL (1.20-3.40); #Monocytes 0.5 thou/uL (0.11-0.59); #Neutrophils 5.5 thou/uL (1.40-6.50); %Basophils 1.2 % (0.0-1.0); %Eosinophils 3.6 % (0.0-10.0); %Lymphocytes 15.3 % (21.0-51.0); %Monocytes 6.2 % (0.0-10.0); %Neutrophils 73.7 % (42.0-75.0); Hemoglobin 8.9 g/dL (12.0-16.0); Mean Corpuscular HGB CONC 31.9 g/dL (32.0-36.0); Mean Corpuscular Hemoglobin 27.9 pg (27.0-31.0); Mean Corpuscular Volume 87.5 fL (78.0-98.0); Mean Platelet Volume 7.2 fL (7.4-10.4); Platelet Count 170 thou/uL (130-400); RBC Distribution Width 15.6 % (11.5-14.5); Red Blood Cell (RBC) Count 3.17 mill/uL (4.20-5.40); White Blood Cell (WBC) Count 7.5 thou/uL (4.8-10.8)
--- NOTE | 2019-03-20 11:26 | DIS ---
DATE OF ADMISSION: 03/16/2019 DATE OF DISCHARGE: 03/20/2019 PRIMARY CARE PHYSICIAN: [facility]. DISCHARGE DISPOSITION: Home. PRIMARY DISCHARGE DIAGNOSES: 1. Symptomatic anemia. 2. Clostridium difficile diarrhea. SECONDARY DISCHARGE DIAGNOSES: Anemia of renal disease, chronic kidney disease stage 4, diabetes type 2, hypertension, dyslipidemia, hypothyroidism, nephrotic syndrome, tobacco abuse disorder. PRIMARY PROCEDURE/OPERATION: None. RADIOLOGICAL INVESTIGATION: X-ray of abdomen. SIGNIFICANT LABORATORY DATA: Hemoglobin 8.9. INR 1.3. Creatinine 2.85, albumin 2.9. DISCHARGE MEDICATIONS: 1. Ventolin nebulization q.6 hourly p.r.n. 2. Amlodipine 5 mg daily. 3. Coreg 12.5 mg b.i.d. 4. Vitamin D3 2000 units p.o. b.i.d. 5. Vitamin B12 1000 mcg p.o. daily. 6. Fish oil one capsule p.o. b.i.d. 7. Lasix 40 mg p.o. b.i.d. 8. Glipizide 5 mg p.o. daily. 9. Synthroid 175 mcg p.o. daily. 10. Lovastatin 40 mg p.o. at bedtime. 11. Veltassa 8.4 g p.o. daily as directed. 12. Zoloft 50 mg p.o. daily. 13. Vitamin B complex one capsule daily. 14. Vancomycin 125 mg p.o. q.6 hourly for 10 days. 15. Aspirin 81 mg p.o. daily. 16. Citrucel 500 mg p.o. daily. 17. Sodium bicarbonate 650 mg p.o. b.i.d. CONTRAINDICATION: None. CODE STATUS: DNR. INPATIENT CLINICAL ACCOUNT EXECUTIVE: Dr. Anton was following for symptomatic anemia. Dr. Pimentel was following for renal failure. TEST RESULT PENDING ON DISCHARGE: None. ALLERGIES: CODEINE, MEPERIDINE, PENICILLIN, SULFA, AND TRIMETHOPRIM. DISCHARGE PLAN: Posthospital, the patient will follow up with primary care physician as well as primary flight simulator teacher in 1 or 2 weeks. The patient will follow up with Nephrology as instructed. HOSPITAL COURSE: A 59-year-old female with above-mentioned medical problem, who was admitted by Amanda Silva. Please see her H and P for further details. The patient was having generalized weakness, dyspnea on exertion, fatigue. She was found with symptomatic anemia. Her hemoglobin on admission was 7.7, which was dropped to 7.1, and she was given 1 unit of blood transfusion. Gastroenterology was consulted and they recommended outpatient colonoscopy. During this admission, she did not want to go for EGD and colonoscopy and she remained hemodynamically stable. The patient was given total of 2 units of blood transfusion during this admission. The patient also had C. diff diarrhea that was confirmed with the stool testing and we started on oral vancomycin, which she will finish complete course of therapy after discharge. At this point, the patient is medically stable for discharge. The patient has improvement and I have seen and examined the patient bedside today as well as plan of care discussed with the patient and family member. Job ID: [id number] MTDD
== END 2019-03-20 11:12 | disposition home or self-care (01) | DRG 682 ==
LOC: ERS 11:41 → T4-A 18:27
PROVIDERS: ADMIT Family Medicine; ATTEND Family Medicine
PROC: 30233N1 Transfusion of Nonautologous Red Blood Cells into Peripheral Vein, Percutaneous Approach (ICD-10-PCS; principal; 2019-03-16)
DX: I12.0 Hypertensive chronic kidney disease with stage 5 chronic kidney disease or end stage renal disease (principal); N17.0 Acute kidney failure with tubular necrosis; A04.72 Enterocolitis due to Clostridium difficile, not specified as recurrent; N18.4 Chronic kidney disease, stage 4 (severe); Z66 Do not resuscitate; E03.9 Hypothyroidism, unspecified; K21.9 Gastro-esophageal reflux disease without esophagitis; E78.5 Hyperlipidemia, unspecified; J44.9 Chronic obstructive pulmonary disease, unspecified; F17.220 Nicotine dependence, chewing tobacco, uncomplicated; E11.22 Type 2 diabetes mellitus with diabetic chronic kidney disease; D63.1 Anemia in chronic kidney disease; Z90.49 Acquired absence of other specified parts of digestive tract; Z90.710 Acquired absence of both cervix and uterus; Z88.0 Allergy status to penicillin; Z88.2 Allergy status to sulfonamides; Z88.5 Allergy status to narcotic agent; Z79.51 Long term (current) use of inhaled steroids; Z79.82 Long term (current) use of aspirin; Z79.01 Long term (current) use of anticoagulants; Z79.899 Other long term (current) drug therapy; Z86.73 Personal history of transient ischemic attack (TIA), and cerebral infarction without residual deficits
CPT/HCPCS: 36415; 36416; 36430; 74018; 80048; 80053; 82274; 82550; 82728; 83540; 83550; 83690; 84443; 84484; 85025; 85610; 85730; 86850; 86900; 86901; 87045; 87046; 87324; 87449; 87493; 87899; 93005; J1815; P9016; S0028

== ENCOUNTER 2019-04-12 00:02 | Emergency (ER) | payer SELFPAY ==
[2019-04-12] MEDS ORDERED: methylPREDNISolone Sod Succ/PF 125 MG/2 ML VIAL ONE (00:26)
[2019-04-12 00:59] LABS: #Eosinphils 0.2 thou/uL (0.0-0.7); #Monocytes 0.5 thou/uL (0.11-0.59); #Neutrophils 5.5 thou/uL (1.40-6.50); %Basophils 0.1 % (0.0-1.0); %Eosinophils 3.1 % (0.0-10.0); %Lymphocytes 13.4 % (21.0-51.0); %Monocytes 7.2 % (0.0-10.0); %Neutrophils 76.3 % (42.0-75.0); Hemoglobin 7.9 g/dL (12.0-16.0); Mean Corpuscular HGB CONC 31.6 g/dL (32.0-36.0); Mean Corpuscular Hemoglobin 28.6 pg (27.0-31.0); Mean Corpuscular Volume 90.5 fL (78.0-98.0); Mean Platelet Volume 8.2 fL (7.4-10.4); Platelet Count 155 thou/uL (130-400); RBC Distribution Width 17.1 % (11.5-14.5); Red Blood Cell (RBC) Count 2.76 mill/uL (4.20-5.40); White Blood Cell (WBC) Count 7.2 thou/uL (4.8-10.8)
[2019-04-12 01:21] LABS: ALT (SGPT) 22 U/L (8-55); AST (SGOT) 31 U/L (5-34); Albumin 2.9 g/dL (3.5-5.0); Alkaline Phosphatase 318 U/L (40-150); Anion Gap 13 mmol/L (10-20); BUN (Urea Nitrogen) 26 mg/dL (9.8-20.1); Bilirubin, Total 0.7 mg/dL (0.2-1.2); Calc. Creatinine Clearance 0 mL/min (70-130); Calcium 9.2 mg/dL (7.8-10.44); Carbon Dioxide 23 mmol/L (22-29); Chloride 103 mmol/L (98-107); Estimated GFR-MDRD 22; Globulin 3.9 g/dL (2.4-3.5); Glucose 217 mg/dL (70-105); Potassium 5.4 mmol/L (3.5-5.1); Protein, Total 6.8 g/dL (6.0-8.3); Sodium 134 mmol/L (136-145)
[2019-04-12] MEDS ORDERED: Cefepime 1 GM VIAL ONE (02:13)
[2019-04-12] MEDS ORDERED: Meclizine HCl 25 MG TAB ONE (02:13)
[2019-04-12] MEDS ORDERED: Metoclopramide HCl 10 MG/2 ML VIAL ONE (02:13)
--- NOTE | 2019-04-12 07:25 | RAD ---
CHEST 2 VIEWS: INDICATION: Shortness of breath and dyspnea. FINDINGS: There is cardiomegaly with pulmonary vascular congestion. There are small bilateral pleural effusion s. No confluent airspace opacity is evident. There is postsurgical change of a right rotator cuff r epair. No acute osseous abnormality is evident. IMPRESSION: Findings of mild congestive heart failure. POS: BH
== END 2019-04-12 03:19 | disposition home or self-care (01) ==
LOC: ERS 00:02
DX: D64.9 Anemia, unspecified (principal); E03.9 Hypothyroidism, unspecified; K21.9 Gastro-esophageal reflux disease without esophagitis; E78.5 Hyperlipidemia, unspecified; E11.9 Type 2 diabetes mellitus without complications; I10 Essential (primary) hypertension; J44.9 Chronic obstructive pulmonary disease, unspecified; F17.210 Nicotine dependence, cigarettes, uncomplicated; Z79.899 Other long term (current) drug therapy; Z86.73 Personal history of transient ischemic attack (TIA), and cerebral infarction without residual deficits; Z79.82 Long term (current) use of aspirin
CPT/HCPCS: 71046; 80053; 84484; 85025; 93005; 94640; 96365; 96375; J0692; J2765; J2930; J7620; J8499

== ENCOUNTER 2019-05-04 17:29 | Inpatient (IN) | payer SELFPAY ==
[2019-05-04 18:04] LABS: #Eosinphils 0.1 thou/uL (0.0-0.7); #Lymphocytes 0.9 thou/uL (1.20-3.40); #Monocytes 0.4 thou/uL (0.11-0.59); #Neutrophils 1.2 thou/uL (1.40-6.50); %Eosinophils 5.3 % (0.0-10.0); %Lymphocytes 33.9 % (21.0-51.0); %Monocytes 14.4 % (0.0-10.0); %Neutrophils 45.3 % (42.0-75.0); Hemoglobin 7.2 g/dL (12.0-16.0); Mean Corpuscular HGB CONC 31.4 g/dL (32.0-36.0); Mean Corpuscular Hemoglobin 29.6 pg (27.0-31.0); Mean Corpuscular Volume 94.1 fL (78.0-98.0); Mean Platelet Volume 7.2 fL (7.4-10.4); Platelet Count 136 thou/uL (130-400); RBC Distribution Width 17.2 % (11.5-14.5); Red Blood Cell (RBC) Count 2.44 mill/uL (4.20-5.40); White Blood Cell (WBC) Count 2.5 thou/uL (4.8-10.8)
[2019-05-04 18:22] LABS: ALT (SGPT) 10 U/L (8-55); AST (SGOT) 21 U/L (5-34); Albumin 2.7 g/dL (3.5-5.0); Alkaline Phosphatase 264 U/L (40-150); Anion Gap 13 mmol/L (10-20); BUN (Urea Nitrogen) 41 mg/dL (9.8-20.1); Bilirubin, Total 0.6 mg/dL (0.2-1.2); Calc. Creatinine Clearance 0 mL/min (70-130); Calcium 9.3 mg/dL (7.8-10.44); Carbon Dioxide 20 mmol/L (22-29); Chloride 105 mmol/L (98-107); Estimated GFR-MDRD 18; Globulin 3.9 g/dL (2.4-3.5); Glucose 139 mg/dL (70-105); Potassium 6.1 mmol/L (3.5-5.1); Protein, Total 6.6 g/dL (6.0-8.3); Sodium 132 mmol/L (136-145)
[2019-05-04 18:42] LABS: PTT 34.7 SEC (22.9-36.1)
[2019-05-04] MEDS ORDERED: Dextrose 50% Abboject 50 ML SYRINGE ONE (18:44)
[2019-05-04] MEDS ORDERED: Calcium Chloride 1 GM/10 ML Abboject SYRINGE ONE (18:44)
[2019-05-04] MEDS ORDERED: Sodium Bicarb 50 MEQ/50 ML VIAL ONE (18:44)
[2019-05-04] MEDS ORDERED: Insulin Regular 300 UNITS/3 ML VIAL ONE (18:44)
[2019-05-04 18:48] LABS: INR-International Normal Ratio 1.4; Prothrombin Time 17.4 SEC (12.0-14.7)
--- NOTE | 2019-05-04 19:07 | CT ---
CT Abdomen Pelvis WO Con History: Abdominal pain. Nausea and vomiting Comparison: Radiograph same day Findings: There are a few nodules in both lung bases. Right lung base nodule measures 7 mm. Heart size is enlarged. Small pericardial effusion. Liver is markedly enlarged. Appears be a infiltrative mass of the right kidney, incompletely evaluate d due to lack of intravenous contrast. Spleen is enlarged. Cirrhotic appearance of the liver. Severe vascular calcifications of the aorta. Left kidney small. There is a mass in the right adrenal gland. There is retroperitoneal periaortic an d aortocaval adenopathy. No acute osseous abnormality. Impression: 1. Findings highly concerning for an infiltrative mass of the right kidney with adjacent adenopathy. Postcontrast examination recommended. 2. Hepatomegaly with a cirrhotic contour. 3. Small volume ascites and a moderate third spacing. 4. Nodules in both lower lobes concerning for metastatic disease. 5. Supplementary concerning for portal hypertension.
--- NOTE | 2019-05-04 20:29 | CON ---
DATE OF CONSULTATION: REASON FOR CONSULTATION: Hyperkalemia. HISTORY OF PRESENT ILLNESS: This is a 59-year-old female, presented to the hospital with hypotension and not feeling well, was noted to have a potassium of 6.0 and I was called. The patient's creatinine has also been elevated. The patient complained of nausea, vomiting, and chest pain. PAST MEDICAL HISTORY: Significant for hypertension, acute kidney injury, anemia, and noncompliance, asthma, cholecystectomy, , hysterectomy, right rotator cuff repair, cervical cancer, TIA, diabetes mellitus. SOCIOECONOMIC HISTORY: No alcohol or drug use. FAMILY HISTORY: Negative for ESRD. MEDICATIONS: Home medications; list reviewed. Hospital medications; list reviewed. REVIEW OF SYSTEMS: A 15-point review of systems was performed and negative except for positives noted above. GENERAL: HEAD: NECK: No swelling or lumps. NOSE: No epistaxis or discharge. EYES: No diplopia or pain. RESPIRATORY: CARDIOVASCULAR: GASTROINTESTINAL: /TELEMETRY REGISTERED NURSE: MUSCULOSKELETAL: No joint pain. NEUROPSYCHIATIC SYSTEMS: No suicidal ideation. No ideation. SKIN: Denies any rash or ulcer. CONSTITUTIONAL: No fever or chills. PHYSICAL EXAMINATION: GENERAL: The patient is awake and alert. VITAL SIGNS: Reviewed. HEAD/NECK: Normocephalic. Atraumatic. EYES: EOMI. No deformity. EARS: Clear. No ulcers. NOSE: Intact. No lesions. MOUTH: Clear. No discharge. THROAT: Clear. No exudate. LUNGS: Clear. No crackles. CARDIAC: S1, S2. No rub. ABDOMEN: Benign. Bowel sounds positive. GENITALIA/RECTUM: Castillo absent. BACK/EXTREMITIES: Edema 0+. NEUROLOGICAL: Alert and motor intact. SKIN: LYMPHATICS: LABORATORY DATA: Reviewed. ASSESSMENT: 1. Acute kidney injury with chronic kidney disease, most likely decreased effective arterial blood volume. Continue hydration. 2. Hyperkalemia. Recommend bicarbonate and Kayexalate. Repeat potassium. 3. Abdominal pain, nausea, and vomiting. Continue hydration. 4. Acute tubular necrosis. Overall, prognosis is poor. No urgent indication for dialysis. Job ID: [id number]
[2019-05-04 21:24] LABS: Anion Gap 10 mmol/L (10-20); BUN (Urea Nitrogen) 39 mg/dL (9.8-20.1); Calc. Creatinine Clearance 0 mL/min (70-130); Calcium 9.5 mg/dL (7.8-10.44); Carbon Dioxide 19 mmol/L (22-29); Chloride 108 mmol/L (98-107); Estimated GFR-MDRD 19; Glucose 135 mg/dL (70-105); Potassium 5.4 mmol/L (3.5-5.1); Sodium 132 mmol/L (136-145)
[2019-05-04 21:30] LABS: Troponin I Less than 0.010 ng/mL (< 0.028)
[2019-05-04] MEDS ORDERED: Ondansetron ODT 4 MG TAB PO PRN (22:26)
[2019-05-04] MEDS ORDERED: Acetaminophen 650 MG Suppository PR PRN (22:26)
[2019-05-04] MEDS ORDERED: Ondansetron PF 4 MG/2 ML Vial IVP PRN (22:26)
[2019-05-04] MEDS ORDERED: Acetaminophen 325 MG TAB PO PRN (22:26)
[2019-05-04 22:58] LABS: Troponin I 0.013 ng/mL (< 0.028)
[2019-05-04 23:24] VITALS: BMI 30.9
[2019-05-05 05:16] LABS: Anion Gap 13 mmol/L (10-20); BUN (Urea Nitrogen) 38 mg/dL (9.8-20.1); Calc. Creatinine Clearance 27 mL/min (70-130); Calcium 9.5 mg/dL (7.8-10.44); Carbon Dioxide 20 mmol/L (22-29); Chloride 107 mmol/L (98-107); Estimated GFR-MDRD 19; Glucose 137 mg/dL (70-105); Potassium 5.9 mmol/L (3.5-5.1); Sodium 134 mmol/L (136-145)
[2019-05-05 05:36] LABS: Anisocytosis SLIGHT = 6-15 cells (100X) (0-5/hpf); Band 6 % (5-11); Eosinophils 6 % (0-10); Hemoglobin 6.7 g/dL (12.0-16.0); Lymphocytes 35 % (21-51); MDiff Complete? YES; Mean Corpuscular HGB CONC 31.8 g/dL (32.0-36.0); Mean Corpuscular Hemoglobin 30.1 pg (27.0-31.0); Mean Corpuscular Volume 94.4 fL (78.0-98.0); Mean Platelet Volume 6.8 fL (7.4-10.4); Monocytes 14 % (0-10); Neutrophil 39 % (42-75); Platelet Count 110 thou/uL (130-400); Platelet Morphology Comment Appears Decreased; RBC Distribution Width 17.1 % (11.5-14.5); Red Blood Cell (RBC) Count 2.21 mill/uL (4.20-5.40); White Blood Cell (WBC) Count 2.8 thou/uL (4.8-10.8)
--- NOTE | 2019-05-05 09:16 | ULT ---
EXAM: US Abdominal PROVIDED CLINICAL HISTORY: Cirrhosis COMPARISON: CT examination 05/04/2019 FINDINGS: The visualized portions of the pancreas appear normal. The abdominal aorta is obscured. The IVC appea rs obscured. Free fluid is noted about the right hepatic margin. The liver is enlarged measuring at least 24 cm in craniocaudal dimension and demonstrates a peripheral nodular contour. There is no evidence for hepatic mass or intrahepatic biliary ductal dilatation. The common duct is nondilated. The spleen appears enlarged, measuring about 17.4 cm in craniocaudal dimension. The left kidney demonstrates no hydronephrosis or mass. As demonstrated on prior CT there is a large mass associated with the right kidney, better demonstrated on CT examination. The gallbladder is surgically absent. IMPRESSION: 1. Hepatosplenomegaly. 2. Right renal mass. 3. Ascites.
[2019-05-05] MEDS ORDERED: Sodium Bicarbonate 150 MEQ in Dextrose 5% in Water 1,000 ML IV SCH (11:15)
--- NOTE | 2019-05-05 11:16 | PRG ---
DATE OF SERVICE: 05/05/2019 SUBJECTIVE: This is a 59-year-old female with a history of noncompliance. Denies any nausea, vomiting, or chest pain. The patient remains hyperkalemic. OBJECTIVE: CONSTITUTIONAL: On exam, the patient is awake and alert. VITAL SIGNS: Afebrile, pulse 69, breathing 16, blood pressure 139/67. GENERAL APPEARANCE AND MENTAL STATUS: Fair. HEAD/NECK: Normocephalic. Atraumatic. EYES: EOMI. No deformity. EARS: Clear. No ulcers. NOSE: Intact. No lesions. MOUTH: Clear. No discharge. THROAT: Clear. No exudate. LUNGS: Clear. No crackles. CARDIAC: S1, S2. No rub. ABDOMEN: Benign. Bowel sounds positive. GENITALIA/RECTUM: Castillo absent. BACK/EXTREMITIES: Edema 0+. NEUROLOGICAL: Alert and motor intact. SKIN: LYMPHATICS: LABORATORY DATA: Labs reviewed. IMPRESSION AND PLAN: Stage 4 chronic kidney disease with acute tubular necrosis, multifactorial. Continue hydration. Hyperkalemia, the patient refused to take Kayexalate. We will give Kayexalate and start bicarb drip. If potassium does not improve, we will consider dialysis. Anemia, recommend transfusion only after potassium has normalized. Medication based on GFR appropriate. Prognosis is poor. Job ID: [id number]
--- NOTE | 2019-05-05 12:49 | PDOC.PN ---
- Subjective Encounter Start Date: 05/05/19 Encounter Start Time: 10:00 Subjective: has epigastric abd pain, no nausea -: is currently receiving blood -: no sob - Objective Resuscitation Status - Order Detail: 05/04/19 22:26 Resuscitation Status Routine Resuscitation Status: FULL: Full Resuscitation MAR Reviewed: Yes Vital Signs & Weight: Vital Signs (12 hours) Temp Pulse Pulse Resp BP BP BP 05/05/19 12:32 86/48 L 05/05/19 12:19 98.3 F 68 20 151/63 H 05/05/19 11:48 97.8 F 68 16 150/60 H 05/05/19 10:05 98.1 F 68 20 149/67 H 05/05/19 09:47 98.1 F 18 148/68 H 05/05/19 07:46 98.2 F 69 16 143/67 H 05/05/19 04:00 98.5 F 72 17 139/67 Pulse Ox 05/05/19 12:32 05/05/19 12:19 93 L 05/05/19 11:48 93 L 05/05/19 10:05 93 L 05/05/19 09:47 94 L 05/05/19 07:46 92 L 05/05/19 04:00 93 L Weight Weight 158 lb 3.2 oz I&O: 05/04/19 05/05/19 05/06/19 06:59 06:59 06:59 Intake Total 200 350 Balance 200 350 Result Diagrams: 05/05/19 04:44 05/05/19 04:44 Additional Labs: Accuchecks 05/05/19 05/05/19 10:53 05:44 POC Glucose 138 H 149 H Phys Exam - Physical Examination HEENT: PERRLA palor++ Neck: no nodes, no JVD Respiratory: no wheezing, no rales Cardiovascular: RRR, no significant murmur Gastrointestinal: soft, positive bowel sounds hepatosplenomegaly++ Musculoskeletal: pulses present, edema present Neurological: non-focal, moves all 4 limbs Psychiatric: normal affect, A&O x 3 Dx/Plan (1) Renal mass, right Code(s): N28.89 - OTHER SPECIFIED DISORDERS OF KIDNEY AND URETER Status: Acute (2) Cirrhosis Code(s): K74.60 - UNSPECIFIED CIRRHOSIS OF LIVER Status: Suspected Qualifiers: Ascites presence: with ascites (3) DM type 2 (diabetes mellitus, type 2) Status: Chronic Qualifiers: Diabetes mellitus terminal make up operator insulin use: without retirement use Diabetes mellitus complication status: with kidney complications Diabetes mellitus complication detail: with chronic kidney disease Chronic kidney disease stage : stage 3 (moderate) Qualified Code(s): E11.22 - Type 2 diabetes mellitus with diabetic chronic kidney disease; N18.3 - Chronic kidney disease, stage 3 ( moderate) (4) HLD (hyperlipidemia) Code(s): E78.5 - HYPERLIPIDEMIA, UNSPECIFIED Status: Chronic Qualifiers: Hyperlipidemia type: unspecified Qualified Code(s): E78.5 - Hyperlipidemia , unspecified (5) HTN (hypertension) Code(s): I10 - ESSENTIAL (PRIMARY) HYPERTENSION Status: Chronic Qualifiers: Hypertension type: essential hypertension Qualified Code(s): I10 - Essential (primary) hypertension (6) Hypothyroidism Code(s): E03.9 - HYPOTHYROIDISM, UNSPECIFIED Status: Chronic Qualifiers: Hypothyroidism type: unspecified Qualified Code(s): E03.9 - Hypothyroidism , unspecified (7) Anemia Code(s): D64.9 - ANEMIA, UNSPECIFIED Status: Acute Qualifiers: Anemia type: unspecified type Qualified Code(s): D64.9 - Anemia, unspecified (8) H/O: CVA (cerebrovascular accident) Code(s): Z86.73 - PRSNL HX OF TIA (TIA), AND CEREB INFRC W/O RESID DEFICITS Status: Chronic Comment: h/o cva 02/2019 with left hemiparesis (9) Hyperkalemia Code(s): E87.5 - HYPERKALEMIA Status: Acute (10) SELMA (acute kidney injury) Code(s): N17.9 - ACUTE KIDNEY FAILURE, UNSPECIFIED Status: Acute (11) Metabolic acidosis Code(s): E87.2 - ACIDOSIS Status: Acute - Plan multiple imaging, cytology, LDH, hep panel is ordered -: paracentesis fluid for cytology, very little fluid per , will attem -: renal mass is more medial, await 's opinion -: no h/o alc use, not sure if its leukemia? in addition to renal mass -: continue iv fluid with bicarb, mobilize as tolerated * . Review of Systems - Medications/Allergies Allergies/Adverse Reactions: Allergies Allergy/AdvReac Type Severity Reaction Status Date / Time codeine Allergy Verified 09/25/18 12:44 meperidine HCl [From Demerol] Allergy Verified 09/25/18 12:44 Penicillins Allergy Verified 09/25/18 12:44 sulfamethoxazole Allergy Verified 09/25/18 12:44 [From Bactrim] trimethoprim [From Bactrim] Allergy Verified 09/25/18 12:44 Medications: Current Medications Acetaminophen (Tylenol) 650 mg PO Q4H PRN PRN Reason: Headache/Fever/Mild Pain (1-3) Acetaminophen (Tylenol) 650 mg NE Q4H PRN PRN Reason: Headache/Fever/Mild Pain (1-3) Sodium Bicarbonate 150 meq/ (Dextrose/Water) 1,150 mls @ 100 mls/hr IV NOW [facility] Stop: 05/05/19 13:15 Last Admin: 05/05/19 12:23 Dose: 1,150 mls Ondansetron HCl (Zofran Odt) 4 mg PO Q6H PRN PRN Reason: Nausea/Vomiting Ondansetron HCl (Zofran) 4 mg IVP Q6H PRN PRN Reason: Nausea/Vomiting Sodium Chloride (Flush - Normal Saline) 10 ml IVF PRN PRN PRN Reason: Saline Flush Sodium Polystyrene Sulfonate (Kayexelate Oral Susp 15 Gm/60 Ml) 30 gm PO NOW [facility] Stop: 05/05/19 13:15
[2019-05-05] MEDS ORDERED: VELTASSA PO SCH (13:45)
--- NOTE | 2019-05-05 13:53 | ULT ---
Ultrasound-guided paracentesis: HISTORY: Ascites of uncertain etiology. FINDINGS: Informed consent obtained prior to the procedure. Preprocedural imaging demonstrated intrap eritoneal free fluid. An area was marked in the right mid abdomen, and then meticulously prepped and draped in normal steri le fashion and anesthetized with 1% buffered lidocaine. With direct sonographic guidance, a 25-gauge needle was advanced into the abdomen. Approximately 20 m L of slightly blood-tinged fluid was aspirated. Needle was removed, and hemostasis was achieved with direct pressure. Dry sterile dressing was placed. The patient tolerated the procedure well and w ithout immediate complication. IMPRESSION: Technically successful ultrasound-guided paracentesis. Specimen was sent for labs.
--- NOTE | 2019-05-05 14:49 | CT ---
EXAM: CT Chest WO Con PROVIDED CLINICAL HISTORY: Renal mass COMPARISON: CT abdomen and pelvis 05/04/2019 FINDINGS: Evaluation of the heart, pericardium and great vessels is limited due to lack of IV contrast, as is e valuation for mediastinal and hilar lymph node enlargement. Borderline enlarged pretracheal lymph node is noted. Subcarinal adenopathy cannot be excluded. Vascular calcification including coronary ca lcium is demonstrated. There is a moderate pericardial effusion. There are multiple bilateral subcentimeter pulmonary nodules. There is groundglass opacity involving the left upper lobe. The airway appears patent and of normal caliber. There is no evidence for pleural fluid or pneumothorax. The visualized portions of the upper abdomen appear similar to the prior examination. Osseous structures demonstrate no concerning lytic or blastic lesions. IMPRESSION: 1. Multiple subcentimeter bilateral noncalcified pulmonary nodules, compatible with metastatic diseas e. The size and locations of these nodules would make percutaneous sampling technically challenging. 2. Groundglass opacity within the left upper lobe. Pulmonary hemorrhage, pulmonary inflammation and p ulmonary infection could be considered. 3. Moderate pericardial effusion. 4. Possible mediastinal lymph node enlargement.
[2019-05-05] MEDS: oxyCODONE 5 MG TAB PO PRN ×2 (15:40→19:56)
[2019-05-05 15:49] LABS: HBCM Index 0.07 S/CO (0-0.79); HBSAg Index 0.38 S/CO (0-0.99); Hep A IgM AB Non-Reactive (NonReactive); Hep A IgM S/CO 0.17 S/CO (0-0.79); Hep B Surf Ag Non-Reactive S/CO (NonReactive); Hep C IgG Ab Non-Reactive (NonReactive); Hep C Index 0.08 S/CO (0-0.79); Hepatitis B Core IgM Abs Non-Reactive (NonReactive)
[2019-05-05] MEDS ORDERED: Enoxaparin Sodium 30 MG/0.3 ML SYRINGE SC SCH (17:15)
--- NOTE | 2019-05-05 18:40 | CON ---
DATE OF CONSULTATION: 05/05/2019 CONSULTING: Sal Shafer MD REASON FOR CONSULTATION: Renal mass. HISTORY OF PRESENT ILLNESS: Ms. Alex is a 59-year-old white female, who was admitted to the hospital by her primary care doctor for significant electrolyte abnormalities as well as anemia and abdominal pain. Upon arrival to the emergency room, she underwent a full set of labs, which did demonstrate a hemoglobin of 6.7 with a creatinine of 2.57. A CT done demonstrated a large right renal mass occupying the majority of the right kidney with likely metastatic spread to the adjacent lymph nodes and to the lung parenchyma based on the base of the lungs imaged during the CT. There does also appear to be concerns for hepatomegaly with cirrhotic contour. After being admitted, I was consulted for further assistance. On my discussion with the patient, she states that she is having pain in her spine as well as in her femur bones. This pain has been ongoing and is moderate in intensity. Ranking about a 5/10. She states that she had a stroke around in February or March, which left her with a left hemiparesis. She is not aware of any imaging that was done at that time. Per her records, the most recent brain CT on file is from July 04, which demonstrated no acute findings at that time. Her family states that she has lost almost 60 pounds over the course of the past two months. She has also progressively gotten weaker. She has not had any significant mental status changes, fever, chills, night sweats, nausea, vomiting, shortness of breath, or chest pain. She is not able to walk and get around in a wheelchair secondary to her stroke. ALLERGIES: 1. CODEINE. 2. DEMEROL. 3. PENICILLIN. 4. BACTRIM. 5. TRIMETHOPRIM. HOME MEDICATIONS: 1. Aspirin. 2. Glipizide. 3. Sodium bicarb. 4. Plavix. 5. Zoloft. 6. Levothyroxine. 7. Vitamin B complex. 8. Lovastatin. 9. Carvedilol. 10. Amlodipine. 11. Phenergan. 12. Fish oil. 13. Vitamin B12. 14. Vitamin D3. 15. Veltassa. PAST MEDICAL HISTORY: 1. Chronic kidney disease. 2. Hypothyroidism. 3. Gastroesophageal reflux disease. 4. Hyperlipidemia. 5. History of cervical cancer. 6. TIA. 7. Diabetes mellitus type 2. 8. Hypertension. 9. COPD. 10. Asthma. 11. CVA. PAST SURGICAL HISTORY: 1. Cholecystectomy. 2. . 3. Hysterectomy. 4. Right rotator cuff surgery. REVIEW OF SYSTEMS: A 12-point review of systems was reviewed and entirely negative other than what was commented on the HPI. PHYSICAL EXAMINATION: VITAL SIGNS: Temperature 98.3, pulse 93, respirations 20, blood pressure 86/48, and saturation 93% on room air. GENERAL: No apparent distress. Communicative and alert, somewhat appearing older than stated age. HEENT: Normocephalic and atraumatic. Pupils symmetric and round. Nonicteric. Moist mucous membranes. Trachea midline. CARDIOVASCULAR: Regular rate and rhythm. Normal S1 and S2. Symmetric pulses. CHEST: No increased work of breathing. Symmetric expansion. LUNGS: Clear anteriorly. ABDOMEN: Soft, nontender, and nondistended. There is a palpable mass in the right hemiabdomen, which is relatively fixed, mildly tender to palpation. No suprapubic tenderness. No left-sided mass is palpable. No hernias. Positive bowel sounds. : Deferred. EXTREMITIES: No clubbing, cyanosis, or edema. MUSCULOSKELETAL: No joint deformities or joint or joint erythema noted. Moves both upper extremities, although the left is weak, does not move the left lower extremity. Right lower extremity has proper movement range of motion. NEUROLOGIC: Cranial nerves 2 through 12 appear grossly intact. There is a left hemiplegia with poor medical laboratory scientist strength on the left, but ability to move her arm weakly on the left. Near complete paralysis of the left leg. Right arm strength is 4/5 with a right leg strength 4/5. LYMPH NODES: No cervical, supraclavicular, inguinal or abdominal lymphadenopathy palpable. SKIN: Warm and dry. No rashes or lesions. Somewhat pale, poor turgor. PSYCHIATRIC: Alert and oriented x3. Somewhat withdrawn and depressed. LABORATORY DATA: On laboratory evaluation, the full set of labs are in the [facility] system, which I have reviewed. Of note, the patient's sodium is 134 with a potassium of 5.9, creatinine of 2.57. Troponins are negative. White count is 2.8, hemoglobin of 6.7, and platelet count of 110. INR 1.4. CT from May 04 demonstrates findings highly concerning for an infiltrative mass of the right kidney with adjacent adenopathy, which appears to extend over the renal vein and artery and possibly onto the IVC itself. The mass also abuts and possibly invade the pancreas. There is hepatomegaly with cirrhotic contour. Small volume ascites with moderate third-spacing. Nodules in both lower lobes of the lungs concerning for metastatic disease and concern for portal hypertension. ASSESSMENT AND PLAN: A 59-year-old white female with what appears to be a primary renal cell carcinoma with significant advanced disease, T4 N2 M1 clinically based on current imaging. Given her history of cerebrovascular accident without proper imaging, I am concerned about possible brain metastasis and we will go ahead and order a MRI of the brain since the patient cannot have contrast. We will also plan for a CT of the chest without contrast given her acute kidney injury and chronic kidney disease. Once we have final staging, consult to Neurosurgery can be obtained, if there are brain metastasis. Dr. Sky has already been consulted and I have spoken with her over the phone in discussion with long-term management options for this patient. Overall prognosis remains very poor. Given the renal failure and pancytopenia, she may be a candidate for systemic treatments depending on Dr. Sky's judgment and based on final staging and imaging. From my standpoint, her cancer appears unresectable at this point. Cytoreductive nephrectomy would not be recommended in the current setting and I am not sure that she may ever reach a point where it does become feasible, although this can be rediscussed based on final staging and response to any treatments that she may undertake. Obviously, the family was very distraught with this news as this is all new to them. I did not discuss any further treatments or options at this time until final staging can be obtained. I will continue to follow along and I will await the final imaging for complete staging before deciding on the next course of action, which I will make in conjunction with Dr. Sky or any other consultants that may be necessary. Job ID: [id number]
[2019-05-05 19:23] LABS: Actual Bicarbonate (HCO3a) 23.5 mEq/L (22-28); Base Excess (BEa) -1.2 mEq/L (-2.0 to +3.0); Calcium, Ionized 1.34 mmol/L (1.12-1.30); Hemoglobin (Hb) 9.2 g/dL (12.0-16.0); O2 Tension (PaO2) 64.3 mmHg (80.0-100.0); Potassium - ABG Lab 5.62 mmol/L (3.70-5.30)
[2019-05-05 19:25] LABS: Puncture Site LRA
[2019-05-05] MEDS ORDERED: VELTASSA 8.4 GM PO SCH (19:30)
[2019-05-05 19:43] LABS: Potassium 5.8 mmol/L (3.5-5.1)
[2019-05-05 23:28] LABS: BF Color Yellow; Body Fluid Source Ascites Body Fluid; Clarity Hazy (Clear); Tube # EDTA
[2019-05-05 23:29] LABS: BF WBC/Nonhematics Ct. - Manua 87 /cumm; RBC Background Count 0.001; RBC Count-Automated 11000 /cumm
--- NOTE | 2019-05-05 23:29 | CON ---
DATE OF CONSULTATION: 05/05/2019 HISTORY OF PRESENT ILLNESS: Ms. Alex is a 59-year-old female with a history of recent CVA as well as chronic renal insufficiency, likely secondary to hypertension, who presented to the emergency room with nausea and vomiting as well as increased abdominal pain. She had seen her physician at [facility] for all just prior to this admission and after throwing up for over 24 hours, she came into the emergency room. CT scan of the abdomen and pelvis done in the emergency room showed some ascites as well as a right kidney mass. She was admitted for further workup. Notably, she did have a stroke just under a month ago, although I have no records on this. Further workup besides the right kidney mass revealed multiple pulmonary metastases. She has already had a paracentesis under ultrasound guidance to look at the ascites. She has no history of liver disease or cirrhosis that she knows of. She denies alcohol use. PAST MEDICAL HISTORY: 1. Hypertension. 2. Acute renal failure. 3. Tobacco use. CURRENT MEDICATIONS: 1. Tylenol p.r.n. 2. Zofran 4 mg p.o. q.6 hours p.r.n. 3. Zofran 4 mg IV q.6 hours p.r.n. 4. Oxycodone 5 mg p.o. q.4 hours p.r.n. 5. Oxycodone IR 10 mg p.o. q.4 hours p.r.n. 6. MiraLAX 17 g p.o. daily p.r.n. 7. Kayexalate. ALLERGIES: 1. CODEINE. 2. DEMEROL. 3. PENICILLIN. 4. SULFA. 5. TRIMETHOPRIM. SOCIAL HISTORY: She lives in [place] with her sister and she has several family members who are quite supportive. She does admit to tobacco use, but states that she does not drink alcohol. FAMILY HISTORY: No history of malignancy that she is aware of. REVIEW OF SYSTEMS: She has lost 60 pounds in the last several months and states that she has gotten weaker over the last 2 to 3 months. She has poor appetite and increased girth. PHYSICAL EXAMINATION: VITAL SIGNS: Temperature 97.7, pulse 70, respirations 16, O2 saturation 94% on room air, blood pressure 151/63, pulse 68. GENERAL: She appears much older than her stated age. She is in no acute distress. HEENT: Extraocular muscles are intact. Pupils are equal, round, and reactive to light. She has no scleral icterus. NECK: Supple without lymphadenopathy. CARDIOVASCULAR: Regular rhythm. LUNGS: Clear to auscultation anteriorly, but decreased effort in the bases. ABDOMEN: Hypoactive bowel sounds, slightly distended with dullness in the flanks. She does have tenderness in the midepigastric and right flank. There is a mass palpable in the right flank. EXTREMITIES: No edema. No clubbing. No cyanosis. No petechiae. LABORATORY DATA: White blood cell count 2.8, hemoglobin 6.7, platelets 110, neutrophils 39%. Sodium 134, potassium 6.0, chloride 107, CO2 20, BUN 38, creatinine 2.5, glucose 137, calcium 9.5, LDH 499, total bilirubin 0.6, AST 21, ALT 10, alkaline phosphatase 264, total protein 6.6, albumin 2.7. PT 17, INR 1.4, PTT 34. CT of the chest, abdomen and pelvis shows multiple pulmonary metastases as well as possible mediastinal lymphadenopathy. The liver has a cirrhotic appearance with signs of portal hypertension as well as an infiltrative mass in the right kidney. The spleen is enlarged and there is a mass in the right adrenal gland. There was retroperitoneal, periaortic, and aortocaval adenopathy. There is a pericardial effusion. ASSESSMENT: Ms. Alex is a 59-year-old female with, 1. An infiltrative right kidney mass with pulmonary metastasis. 2. Hepatomegaly with possible cirrhosis as well as splenomegaly. 3. Ascites with third spacing. 4. History of stroke. 5. Acute on chronic renal failure. PLAN: 1. She needs full staging with a bone scan and MRI of the brain. 2. We appreciate Nephrology help to control her potassium. 3. A paracentesis has been done and we will follow up on the pathology of this, but this may not give us a diagnosis. 4. If further biopsy is needed, I would recommend a CT-guided biopsy of one of the pulmonary nodules. 5. I suspect the splenomegaly is contributing to the pancytopenia, but ultimately bone marrow biopsy might be helpful depending on the results of the bone scan. 6. At some point, it might be helpful to get Gastroenterology involved to figure out if she does have cirrhosis and this is contributing to her other medical problems, we can follow up on the results of the paracentesis before we proceed with a consult. 7. She needs an MRI of the brain to make sure that her history of stroke is not related to a hemorrhagic brain metastasis. Job ID: [id number]
[2019-05-05 23:38] LABS: Cell Count Non Hematic 38 %; Lymphocytes 61 %
[2019-05-06] MEDS: Sodium Bicarbonate 150 MEQ in Dextrose 5% in Water 1,000 ML IV SCH ×2 (00:14→15:40)
[2019-05-06 06:04] LABS: #Eosinphils 0.2 thou/uL (0.0-0.7); #Lymphocytes 0.9 thou/uL (1.20-3.40); #Monocytes 0.4 thou/uL (0.11-0.59); #Neutrophils 1.3 thou/uL (1.40-6.50); %Basophils 0.8 % (0.0-1.0); %Eosinophils 6.8 % (0.0-10.0); %Monocytes 13.3 % (0.0-10.0); Hemoglobin 7.6 g/dL (12.0-16.0); Mean Corpuscular HGB CONC 31.9 g/dL (32.0-36.0); Mean Platelet Volume 7.5 fL (7.4-10.4); Platelet Count 114 thou/uL (130-400); RBC Distribution Width 16.7 % (11.5-14.5); Red Blood Cell (RBC) Count 2.54 mill/uL (4.20-5.40); White Blood Cell (WBC) Count 2.8 thou/uL (4.8-10.8)
[2019-05-06 06:24] LABS: Albumin 2.3 g/dL (3.5-5.0); Anion Gap 13 mmol/L (10-20); BUN (Urea Nitrogen) 33 mg/dL (9.8-20.1); BUN/Creatinine Ratio 14.47; Calc. Creatinine Clearance 30 mL/min (70-130); Calcium 9.1 mg/dL (7.8-10.44); Carbon Dioxide 21 mmol/L (22-29); Chloride 103 mmol/L (98-107); Estimated GFR-MDRD 22; Glucose 145 mg/dL (70-105); Phosphorus 2.7 mg/dL (2.3-4.7); Potassium 5.4 mmol/L (3.5-5.1); Sodium 132 mmol/L (136-145)
[2019-05-06] MEDS: oxyCODONE 5 MG TAB PO PRN ×2 (06:39→14:36)
[2019-05-06] MEDS ORDERED: Enoxaparin Sodium 30 MG/0.3 ML SYRINGE SC SCH (09:00)
[2019-05-06] MEDS ORDERED: Lorazepam 2 MG/ML VIAL SLOW IVP SCH (09:15)
[2019-05-06] MEDS: Polyethylene Glycol 3350 17 GM Packet PO SCH (09:34)
[2019-05-06] MEDS ORDERED: VELTASSA 8.4 GM PO SCH (11:30)
--- NOTE | 2019-05-06 12:10 | PRG ---
DATE OF SERVICE: 05/06/2019 SUBJECTIVE: This is a 59-year-old female being seen for acute kidney injury. The patient denies any nausea, vomiting, or chest pain. OBJECTIVE: CONSTITUTIONAL: On exam, the patient is awake and alert. VITAL SIGNS: Afebrile, pulse 75, breathing 16, blood pressure 140/65. GENERAL APPEARANCE AND MENTAL STATUS: Fair. HEAD/NECK: Normocephalic. Atraumatic. EYES: EOMI. No deformity. EARS: Clear. No ulcers. NOSE: Intact. No lesions. MOUTH: Clear. No discharge. THROAT: Clear. No exudate. LUNGS: Clear. No crackles. CARDIAC: S1, S2. No rub. ABDOMEN: Benign. Bowel sounds positive. GENITALIA/RECTUM: Castillo absent. BACK/EXTREMITIES: Edema 0+. NEUROLOGICAL: Alert and motor intact. SKIN: LYMPHATICS: LABORATORY DATA: Labs reviewed. IMPRESSION AND PLAN: 1. Acute kidney injury with chronic kidney disease, stable. 2. Acute tubular necrosis, improving. 3. Hyperkalemia, improved of dialysis. The patient declined anemia. Management per primary team. We will recommend 20,000 units of Epogen subcu if okay with Hematology. Overall prognosis is poor. Job ID: [id number]
--- NOTE | 2019-05-06 12:13 | MRI ---
EXAM: MRI Brain WO Con PROVIDED CLINICAL HISTORY: Renal mass. Evaluate for metastatic disease. COMPARISON: MRI brain on 07/05/2016. FINDINGS: There is a round heterogeneous mass with internal increased T2-weighted signal intensity as well as l ow signal intensity on gradient echo images involving the rim and internally suggesting hemorrhage. This lesion is in the posterior right frontal lobe and abuts the central sulcus. There is a large alexia unt of vasogenic edema seen in the right cerebral hemisphere involving both the right frontal and parietal lobes with associated sulcal effacement. Findings are most suggestive of a solitary metastat ic lesion given patient's clinical history as well as findings on CT chest and abdomen. No definite additional lesions are seen on this nonenhanced CT scan examination. Intravenous contrast was unable to be administered for evaluation of smaller metastatic lesions. No additional areas of vasogenic edema are seen. There is minimal effacement of the atria of the right lateral ventricle. Th ere is no shift of the midline structures to the right. There is no evidence of an acute infarction. Appropriate flow voids are demonstrated the base of the brain. The orbits and paranasal sinuses, skull base have a otherwise normal MRI appearance. IMPRESSION: Findings most likely related to solitary metastatic lesion in the posterior right frontal lobe with l arge amount of surrounding vasogenic edema. As noted above, patient was unable to be administered intravenous contrast for evaluation of smaller metastatic lesions. No additional areas of vasogenic e jonathan are seen.
--- NOTE | 2019-05-06 12:28 | PDOC.PN ---
- Subjective Encounter Start Date: 05/06/19 Encounter Start Time: 10:00 Subjective: awake, no sob -: daughter and sister at bedside - Objective Resuscitation Status - Order Detail: 05/04/19 22:26 Resuscitation Status Routine Resuscitation Status: FULL: Full Resuscitation MAR Reviewed: Yes Vital Signs & Weight: Vital Signs (12 hours) Temp Pulse Resp BP Pulse Ox 05/06/19 12:02 97.4 F L 60 16 138/61 96 05/06/19 08:15 90 L 05/06/19 08:00 98.2 F 72 18 117/53 L 90 L 05/06/19 04:00 98.3 F 68 20 140/65 95 Weight Weight 158 lb 3.2 oz I&O: 05/05/19 05/06/19 05/07/19 06:59 06:59 06:59 Intake Total 200 350 120 Balance 200 350 120 Result Diagrams: 05/06/19 05:37 05/06/19 05:37 Additional Labs: Accuchecks 05/06/19 05/06/19 05/05/19 10:58 05:39 20:35 POC Glucose 206 H 152 H 164 H 05/05/19 16:50 POC Glucose 169 H Phys Exam - Physical Examination HEENT: PERRLA, moist MMs Neck: no JVD, supple Respiratory: no wheezing, no rales Cardiovascular: RRR, no significant murmur Gastrointestinal: soft, positive bowel sounds Musculoskeletal: pulses present, edema present chronic left hemiplegia Psychiatric: normal affect, A&O x 3 Dx/Plan (1) Right frontal lobe mass Code(s): G93.9 - DISORDER OF BRAIN, UNSPECIFIED Status: Acute Comment: likely metastases with edema (2) Renal mass, right Code(s): N28.89 - OTHER SPECIFIED DISORDERS OF KIDNEY AND URETER Status: Acute (3) Cirrhosis Code(s): K74.60 - UNSPECIFIED CIRRHOSIS OF LIVER Status: Suspected Qualifiers: Ascites presence: with ascites (4) DM type 2 (diabetes mellitus, type 2) Status: Chronic Qualifiers: Diabetes mellitus halfway insulin use: without halfway use Diabetes mellitus complication status: with kidney complications Diabetes mellitus complication detail: with chronic kidney disease Chronic kidney disease stage : stage 3 (moderate) Qualified Code(s): E11.22 - Type 2 diabetes mellitus with diabetic chronic kidney disease; N18.3 - Chronic kidney disease, stage 3 ( moderate) (5) HLD (hyperlipidemia) Code(s): E78.5 - HYPERLIPIDEMIA, UNSPECIFIED Status: Chronic Qualifiers: Hyperlipidemia type: unspecified Qualified Code(s): E78.5 - Hyperlipidemia , unspecified (6) HTN (hypertension) Code(s): I10 - ESSENTIAL (PRIMARY) HYPERTENSION Status: Chronic Qualifiers: Hypertension type: essential hypertension Qualified Code(s): I10 - Essential (primary) hypertension (7) Hypothyroidism Code(s): E03.9 - HYPOTHYROIDISM, UNSPECIFIED Status: Chronic Qualifiers: Hypothyroidism type: unspecified Qualified Code(s): E03.9 - Hypothyroidism , unspecified (8) Anemia Code(s): D64.9 - ANEMIA, UNSPECIFIED Status: Acute Qualifiers: Anemia type: unspecified type Qualified Code(s): D64.9 - Anemia, unspecified (9) H/O: CVA (cerebrovascular accident) Code(s): Z86.73 - PRSNL HX OF TIA (TIA), AND CEREB INFRC W/O RESID DEFICITS Status: Chronic Comment: h/o cva 02/2019 with left hemiparesis (10) Hyperkalemia Code(s): E87.5 - HYPERKALEMIA Status: Acute (11) SELMA (acute kidney injury) Code(s): N17.9 - ACUTE KIDNEY FAILURE, UNSPECIFIED Status: Acute (12) Metabolic acidosis Code(s): E87.2 - ACIDOSIS Status: Acute - Plan likely has renal cancer with multiple mets, MRI shows large right frontal m -: -ass with edema (cause for her cva in february) -: d/w patient, sister and daughter at bedside, are aware of all the tests kong -: -t are being done and current plan -: d/w code status with patient, she wants to be a DNAR. * . home meds reconciled. Review of Systems - Medications/Allergies Allergies/Adverse Reactions: Allergies Allergy/AdvReac Type Severity Reaction Status Date / Time codeine Allergy Verified 09/25/18 12:44 meperidine HCl [From Demerol] Allergy Verified 09/25/18 12:44 Penicillins Allergy Verified 09/25/18 12:44 sulfamethoxazole Allergy Verified 09/25/18 12:44 [From Bactrim] trimethoprim [From Bactrim] Allergy Verified 09/25/18 12:44 Medications: Current Medications Acetaminophen (Tylenol) 650 mg PO Q4H PRN PRN Reason: Headache/Fever/Mild Pain (1-3) Albuterol/Ipratropium (Duoneb) 3 ml NEB [id number] PRN PRN Reason: SOB &/or Wheezing Last Admin: 05/05/19 22:08 Dose: 3 ml Sodium Bicarbonate 150 meq/ (Dextrose/Water) 1,150 mls @ 100 mls/hr IV INF REPLACED BY [facility] Last Admin: 05/06/19 00:14 Dose: 1,150 mls Ondansetron HCl (Zofran Odt) 4 mg PO Q6H PRN PRN Reason: Nausea/Vomiting Ondansetron HCl (Zofran) 4 mg IVP Q6H PRN PRN Reason: Nausea/Vomiting Oxycodone HCl (Oxycodone Ir) 5 mg PO Q4H PRN PRN Reason: Moderate Pain (4-6) Last Admin: 05/06/19 06:39 Dose: 5 mg Oxycodone HCl (Oxycodone Ir) 10 mg PO Q4H PRN PRN Reason: Severe Pain (7-10) Veltassa 8.4g Patient's Home Medication 0 each PO NOW REPLACED BY [facility] Stop: 05/06/19 14:00 Polyethylene Glycol (Miralax) 17 gm PO DAILY REPLACED BY [facility] Last Admin: 05/06/19 09:34 Dose: Not Given Sodium Chloride (Flush - Normal Saline) 10 ml IVF PRN PRN PRN Reason: Saline Flush
[2019-05-06] MEDS ORDERED: Dextrose 5% in Water 1,000 ML IV PRN (12:32)
[2019-05-06] MEDS ORDERED: Dextrose 50% Abboject 50 ML SYRINGE SLOW IVP PRN (12:32)
--- NOTE | 2019-05-06 13:31 | PRG ---
DATE OF SERVICE: SUBJECTIVE: The patient is feeling much better after starting Ativan and oxycodone. She was in better spirits yesterday. She states that her pain has almost completely resolved. She did undergo MRI of the brain without contrast, which does demonstrate a cerebral metastasis. Bone scan is still pending. Dr. Sky has seen the patient yesterday and has recommended the patient undergo a bronchoscopy with biopsy to establish a tissue diagnosis. OBJECTIVE: VITAL SIGNS: Temperature 97.4, pulse 60, respirations 16, blood pressure 138/61, and saturation 96% on room air. GENERAL: No apparent distress. Sleeping currently. CARDIOVASCULAR: Regular rate and rhythm. Normal S1 and S2. ABDOMEN: Soft, nontender, and nondistended. Mass still present. EXTREMITIES: No clubbing, cyanosis, or edema. LABORATORY EVALUATION: The full set of labs are in the [facility] system, which I have reviewed. Of note, the patient's white count is 2.8 with hemoglobin of 7.6. Creatinine 2.28, sodium of 132. Ascitic fluid demonstrates 11,000 rbc's, hazy clarity, 87 wbc's. Cytology is still pending. MRI of the brain demonstrates findings most likely related to a solitary metastatic lesion in the posterior right frontal lobe with a large amount of surrounding edema. Due to the lack of IV contrast, additional metastasis could not be identified, but may be present. ASSESSMENT AND PLAN: A 59-year-old white female with advanced likely renal cell carcinoma, pending tissue diagnosis. She does appear to have brain metastasis. The right-sided location does correlate with the left-sided hemiplegia, and this is possible that the stroke that she experienced was actually due to a metastasis. I will consult Neurosurgery to obtain their recommendations based on whether or not this should be removed surgically or consider radiotherapy. This will need to be made in conjunction with Dr. Sky and her opinion regarding the patient's overall prognosis and candidacy for immunotherapy or chemotherapy type treatments. This will also be pending tissue diagnosis, which is scheduled I believe for Tuesday. We will wait for a bone scan. A bone marrow biopsy may also be planned based on the patient's pancytopenia to see if this is due to possible bone metastasis versus another process. From my standpoint, again, there is limited role for a urologic intervention. At the current time, I will continue to follow, but will probably sign off once the appropriate physicians are seeing the patient as there again is a limited role for nephrectomy in this current setting. Job ID: [id number]
--- NOTE | 2019-05-06 14:11 | NM ---
EXAM: NM Bone Scan STANDARD PROVIDED CLINICAL HISTORY: Renal cancer COMPARISON: CT chest 05/05/[address] abdomen pelvis 05/04/2019 FINDINGS: 32 mCi technetium 99m MDP IV, delayed anterior and posterior whole-body planar imaging. Degenerative type uptake is seen involving shoulders and sternoclavicular joints as well as spine. Ch anges of knee arthroplasty bilaterally. IMPRESSION: No scintigraphic evidence for osseous metastatic disease.
[2019-05-06] MEDS: Dexamethasone 4 mg/ml Vial SLOW IVP SCH ×2 (14:37→20:36)
--- NOTE | 2019-05-06 15:11 | HP ---
PRIMARY CARE DOCTOR: [facility] CODE STATUS: Full code. TIME OF EVALUATION: 10:00 p.m. CHIEF COMPLAINT: The patient was sent by the primary care doctor due to abdominal pain. HISTORY OF PRESENT ILLNESS: A 59-year-old female patient. The patient has past medical history of stage 4 renal disease, hypothyroidism, GERD, hyperlipidemia, cervical cancer, TIA, diabetes, , and COPD, who came to the hospital after having abdominal pain, it has been present for the past few months with no clear triggers, no alleviating factors. The pain is mostly on the right side. The patient also has some nausea and vomiting. She went to her primary care doctor and after some few testing, she was advised to come here to the hospital. The symptoms were mild to moderate. No clear triggers, it has been present for a quite some time, and has been gradually getting worse. REVIEW OF SYSTEMS: CONSTITUTIONAL: No fever or chills. The patient does have generalized weakness, lack of appetite, and weight loss. RESPIRATORY: No cough, sputum production, or shortness of breath. CARDIOVASCULAR: No chest pain or palpitation. GASTROINTESTINAL: The patient has nausea and vomiting. No diarrhea. The patient has abdominal pain mostly on the right side. 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 GENITOURINARY: No burning on urination. EXTREMITIES: No leg swelling All other systems were reviewed and negative except for the findings mentioned above. PAST MEDICAL HISTORY: As mentioned in the HPI. PAST SURGICAL HISTORY: The patient has a history of cholecystectomy, x2, hysterectomy, rotator cuff surgery on the right shoulder. SOCIAL HISTORY: The patient is a former smoker of cigarettes. No alcohol. No drug use. KNOWN ALLERGIES: Codeine, Demerol, meperidine, penicillin, and sulfa. REPORTED MEDICATIONS: 1. Albuterol. 2. Amlodipine. 3. Synthroid. 4. Simvastatin. 5. Aspirin. 6. Vitamin D. 7. Fish oil. 8. Sodium bicarbonate. 9. Zoloft. PHYSICAL EXAMINATION: VITAL SIGNS: On presentation; blood pressure 122/49 with heart rate 62, respiratory rate was 20, and temperature 99.2. Pain was 8/10. Oxygen saturation 93% on room air. GENERAL APPEARANCE: The patient is alert, oriented, not in any acute distress. HEENT: Eyes, normal conjunctivae. Moist oral mucosa. Anicteric. NECK: No JVD. RESPIRATORY: Bilateral air entry. No rales. No wheezes. Symmetric expansion. CARDIOVASCULAR: Normal rate. Regular rhythm. No murmurs. No gallop. No edema. ABDOMEN: Tender with palpable mass in the right flank. MUSCULOSKELETAL: Baseline range of motion and strength. SKIN: Warm and intact. No pallor. No rash. No redness. Capillary refill seems to be intact. NEUROLOGIC: No evidence of any new focal weakness. Cranial nerves seems to be intact. PSYCH: The patient is in good mood. No anxiety. Optimal judgment. DIAGNOSTIC DATA: EKG: The patient has normal sinus rhythm with a rate of 62 with MD 166, QRS 90. No evidence of any acute ischemic event. LABORATORY DATA: Reviewed. The patient has a white count 2.5, hemoglobin 7.2, MCV 94.1. Coagulation; PT 17.4, INR 1.4, and PTT 34.7. Sodium ; potassium was 6.1 the first one and the second one was 5.4; carbon dioxide was 20; creatinine 2.75, the second one was 2.57; glucose 139. Total bilirubin 0.6 and alkaline phosphatase 264. Troponin was negative x2. Albumin 2.7. ASSESSMENT AND PLAN: The patient will be placed in the hospital with the following medical problems: 1. Right complex renal mass, most likely due to known diagnosed renal cancer. The patient has associated pain. Oncology has been consulted. Further workup depending on Oncology recommendations. 2. Chronic normocytic anemia. This is likely secondary to underlying mass and also underlying chronic kidney disease. We will defer to Nephro for any further recommendations. 3. Hyponatremia, sodium . We will monitor. We will replace electrolytes as needed. 4. Hyperkalemia, potassium 6.1. Nephro has been consulted. We will follow recommendations. 5. Chronic kidney disease, being followed by Dr. Ricardo. After counseling the patient, we will follow recommendations. 6. Uncontrolled diabetes. The patient has blood sugar in the range of 139. We will monitor. We will place the patient on sliding scale for optimal control. 7. Deep venous thrombosis prophylaxis. Job ID: [id number]
[2019-05-06] MEDS: HumaLOG 300 UNITS/3 ML VIAL SC PRN ×2 (17:25→20:36)
--- NOTE | 2019-05-06 20:06 | CON ---
DATE OF CONSULTATION: 05/06/2019 SERVICE: Pulmonary medicine. HISTORY OF PRESENT ILLNESS: The patient is a 59-year-old white female with past medical history significant for a recent episode of weakness, nausea and vomiting. Ultimately, she came to the emergency department, was diagnosed with anemia, acute kidney injury on top of chronic kidney disease. She was rehydrated, and ultimately discharged home. She has had increasing difficulties with getting by in the outpatient setting. On this occasion, she presented to the hospital because of generalized weakness once again. She had low blood pressure and was redirected to the emergency department. Ultimately, a large mass was discovered in the kidney. It appears that there is metastatic disease into the lymph nodes, mediastinal structures, as well as pulmonary nodules. She had an MRI that was performed demonstrating some lesions in the brain as well. She is currently under the influence of Ativan so that an accurate MRI could be obtained. She is not able to provide me with any additional elements of the history and so most of this is based on chart review. PAST MEDICAL HISTORY: 1. Chronic kidney disease, stage 4. 2. Hypothyroidism. 3. Dyslipidemia. 4. Type 2 diabetes mellitus. 5. Gastroesophageal reflux disease. 6. History of TIA. 7. Cervical cancer. 8. Hypertension. 9. COPD. PAST SURGICAL HISTORY: 1. Cholecystectomy. 2. section. 3. Hysterectomy. 4. Right rotator cuff surgery. 5. Paracentesis. SOCIAL HISTORY: Previously negative for any alcohol or illicit drug use. She has a greater than [id number] history of smoking, but quit remotely. FAMILY HISTORY: Noncontributory. ALLERGIES: CODEINE, DEMEROL, PENICILLIN, AND SULFA. MEDICATIONS: List of her inpatient medications was reviewed. No specific updates were made at this time. REVIEW OF SYSTEMS: General, head, ears, eyes, nose, throat, cardiovascular, respiratory, GI, , musculoskeletal, neurologic, and skin is negative except as mentioned in the HPI. PHYSICAL EXAMINATION: VITAL SIGNS: Afebrile, pulse 60, pressure 138/61, respirations 16, saturation 96% on 0.5 L nasal cannula. GENERAL: The patient is somnolent and under the influence of some Ativan. She is not obstructing her lungs and breathing in a regular fashion. HEENT: Normocephalic and atraumatic. Sclerae white. Conjunctivae pink. Oral mucosa is moist without lesions. LUNGS: Decent air entry. There is not much of a prolonged expiratory phase or wheezing. HEART: Normal rate, regular. ABDOMEN: Soft, nontender, nondistended. Bowel sounds are positive. MUSCULOSKELETAL: No cyanosis or clubbing. There is no pitting in the bilateral lower extremities. NEUROLOGIC: The patient is somnolent. LABORATORY DATA: WBC 2.8, hemoglobin 7.6, platelets 114,000 and downtrending. INR 1.4, pH 7.40, pCO2 of 39, PO2 of 64. Creatinine 2.28, which is close to baseline, potassium 5.4 and downtrending. Basic metabolic profile is otherwise unremarkable. Phosphorus 2.7, albumin 2.3. Troponin 0.013, LDH 499. Liver function studies are unremarkable except for elevated alkaline phosphatase. Lipase is unremarkable. TSH 2.6. Peritoneal fluid is composed of 61% lymphocytes, 1% basophils, and 38% nonhematologic cells. IMAGIN. MRI of the brain demonstrates solitary metastatic lesion in the posterior right frontal lobe with large amount of surrounding vasogenic edema. 2. CT of the chest demonstrates multiple pulmonary nodules bilaterally. The index nodule is 1 cm. It is in the right lower lobe. There is also significant mediastinal lymphadenopathy. 3. Abdominal ultrasound demonstrates small amount of ascites, right renal mass. Hepatic splenomegaly. 4. CT of the abdomen and pelvis demonstrates findings concerning for an infiltrative mass of the right kidney with adjacent adenopathy. Small volume ascites, pulmonary nodules, and findings consistent with portal hypertension. ASSESSMENT: 1. Renal mass. 2. Widely metastatic process. 3. Mediastinal lymphadenopathy. 4. Pulmonary nodules. 5. Brain metastasis. 6. Chronic kidney disease. DISCUSSION AND PLAN: I will schedule Decadron around the clock for the patient to help with her vasogenic edema. I will follow up the cytology results on the paracentesis fluid. If this is abnormal, no additional procedures will be considered. If on the other hand, it is nondiagnostic, we can perform an endoscopic bronchial guided ultrasound of the R4 and station 7 lymph nodes. I will not be able to sample the pulmonary nodule. Pulmonary/Critical Care will continue to follow during the hospital stay. 70 minutes have been devoted to this patient in various activities. I personally reviewed all imaging studies and laboratory data noted within this document. For fifty percent of this time, I was interacting with the patient at the bedside or coordinating care with the care team. For the remainder of the time I was immediately available to the patient in the hospital unit. Job ID: [id number] MTDD
[2019-05-07] MEDS: Sodium Bicarbonate 150 MEQ in Dextrose 5% in Water 1,000 ML IV SCH (01:54)
[2019-05-07] MEDS: Dexamethasone 4 mg/ml Vial SLOW IVP SCH ×4 (01:54→21:01)
[2019-05-07] MEDS: Levothyroxine 175 MCG TAB PO SCH (05:08)
[2019-05-07] MEDS: oxyCODONE 5 MG TAB PO PRN ×3 (08:26→21:01)
[2019-05-07] MEDS: Polyethylene Glycol 3350 17 GM Packet PO SCH (08:27)
--- NOTE | 2019-05-07 10:11 | CON ---
DATE OF CONSULTATION: This is Josie Yang PA-C dictating a report for Uri Collier MD. HISTORY OF PRESENT ILLNESS: Ms. Alex is a 59-year-old female, who recently presented to the emergency department for generalized weakness and worsening abdominal pain associated with nausea and vomiting. She has seen her family physician just prior to that and was advised to come to the ER for further evaluation. CT scan of the abdomen revealed a large right renal mass. The patient was also found to have multiple pulmonary nodules and abdominal lymphadenopathy. This is concerning for right renal carcinoma with metastatic disease. She was admitted for further workup as well as management for anemia and acute kidney injury as well as other multiple metabolic abnormalities. She also reports that approximately 1 month ago she developed progressive left-sided weakness. At that time, she reports she thought she had been told she had a stroke, but she cannot remember having any complete workup for this. This has been gradually worsening since that time. During her admission course and her evaluation for her new metastatic disease, an MRI of the brain was done, which shows a right posterior frontal intracranial lesion with surrounding vasogenic edema and a small component of hemorrhage. Neurosurgery was consulted for further evaluation of this lesion. The patient has been started on Decadron and she is receiving 4 mg q.6 h. She is also being evaluated by multiple other consultants including Hematology/Oncology, Pulmonology, Urology, and Nephrology. There are plans for tissue biopsy of the lung nodule to determine primary source likely to happen later today. The patient is not currently receiving any anticoagulants on her medication list. PAST MEDICAL HISTORY: Hypertension, acute renal failure. PAST SURGICAL HISTORY: Cholecystectomy, x2, hysterectomy, and rotator cuff surgery on the right. SOCIAL HISTORY: The patient is a former smoker. She does not drink or use any drugs. She lives at home with her family. KNOWN ALLERGIES: Codeine, Demerol, penicillin, sulfa, and . REVIEW OF SYSTEMS: Per HPI. PHYSICAL EXAMINATION: VITAL SIGNS: Temperature is 98.5, pulse is 78, respirations 20, the patient is 91% on 0.5 L nasal cannula, and blood pressure is 166/77. HEENT: Head; normocephalic and atraumatic. Eyes; PERRLA. Extraocular movements intact. ENT; oral mucosa is pink, intact, and moist. She has normal voice. NECK: Nontender to palpation. Free active range of motion. No meningismus or nuchal rigidity. CARDIOVASCULAR: Regular rhythm. LUNGS: Symmetric chest expansion. No evidence of dyspnea. MUSCULOSKELETAL: Free active range of motion of the right upper and right lower extremities. No focal motor weakness on the right. In the left, she has a left-sided decreased credit consultant strength and left-sided drift in both the upper and lower extremities. SKIN: She is very pale. NEURO: A and O x4. Left-sided weakness as noted in extremity exam. ASSESSMENT AND PLAN: This is a 59-year-old female with what appears to be a new diagnosis of likely right renal carcinoma with diffuse metastatic disease to the lungs as well as abdominal lymphadenopathy a small right posterior frontal lesion with small area of hemorrhagic component and vasogenic edemas. She is currently on dexamethasone 4 mg q.6 h. and we agree that this is periphery and recommend continuing this medication at this time. We also agree with plan for CT-guided biopsy or tissue biopsy of the pulmonary nodules to establish primary source. At this point, I do not anticipate any acute neurosurgical intervention for her intracranial lesion. I have discussed this plan with Dr. Collier and he will also review the imaging and see the patient. Job ID: [id number]
[2019-05-07] MEDS: HumaLOG 300 UNITS/3 ML VIAL SC PRN ×2 (11:50→17:37)
--- NOTE | 2019-05-07 11:58 | PDOC.PN ---
- Subjective Encounter Start Date: 05/07/19 Encounter Start Time: 10:00 Subjective: awake, no sob -: sister at bedside - Objective Resuscitation Status - Order Detail: 05/06/19 12:34 Resuscitation Status Routine Resuscitation Status: DNAR: NO Resuscitation Discussed with: d/w patient, daughter and sister at bedside MAR Reviewed: Yes Vital Signs & Weight: Vital Signs (12 hours) Temp Pulse Pulse Pulse Resp BP BP 05/07/19 11:52 99 F 73 16 05/07/19 09:07 68 73 150/70 H 165/70 H 05/07/19 07:57 97.9 F 70 16 05/07/19 05:06 98.5 F 78 20 05/07/19 00:00 97.8 F 69 20 BP BP Pulse Ox 05/07/19 11:52 158/69 H 87 L 05/07/19 09:07 05/07/19 07:57 159/67 H 90 L 05/07/19 05:06 166/67 H 91 L 05/07/19 00:00 153/70 H 92 L Weight Weight 158 lb 3.2 oz I&O: 05/06/19 05/07/19 05/08/19 06:59 06:59 06:59 Intake Total 350 2151 Balance 350 2151 Result Diagrams: 05/06/19 05:37 05/06/19 05:37 Additional Labs: Accuchecks 05/07/19 05/07/19 05/06/19 10:48 07:01 20:22 POC Glucose 235 H 232 H 230 H 05/06/19 16:51 POC Glucose 218 H Phys Exam - Physical Examination HEENT: PERRLA, moist MMs Neck: no JVD, supple Respiratory: no wheezing, no rales Cardiovascular: RRR, no significant murmur Gastrointestinal: soft, non-tender, positive bowel sounds Musculoskeletal: pulses present, edema present Neurological: non-focal left hemiplegia Psychiatric: A&O x 3 Dx/Plan (1) Right frontal lobe mass Code(s): G93.9 - DISORDER OF BRAIN, UNSPECIFIED Status: Acute Comment: likely metastases with edema (2) Renal mass, right Code(s): N28.89 - OTHER SPECIFIED DISORDERS OF KIDNEY AND URETER Status: Acute (3) Cirrhosis Code(s): K74.60 - UNSPECIFIED CIRRHOSIS OF LIVER Status: Suspected Qualifiers: Ascites presence: with ascites (4) DM type 2 (diabetes mellitus, type 2) Status: Chronic Qualifiers: Diabetes mellitus marine oil terminal superintendent insulin use: without custodial use Diabetes mellitus complication status: with kidney complications Diabetes mellitus complication detail: with chronic kidney disease Chronic kidney disease stage : stage 3 (moderate) Qualified Code(s): E11.22 - Type 2 diabetes mellitus with diabetic chronic kidney disease; N18.3 - Chronic kidney disease, stage 3 ( moderate) (5) HLD (hyperlipidemia) Code(s): E78.5 - HYPERLIPIDEMIA, UNSPECIFIED Status: Chronic Qualifiers: Hyperlipidemia type: unspecified Qualified Code(s): E78.5 - Hyperlipidemia , unspecified (6) HTN (hypertension) Code(s): I10 - ESSENTIAL (PRIMARY) HYPERTENSION Status: Chronic Qualifiers: Hypertension type: essential hypertension Qualified Code(s): I10 - Essential (primary) hypertension (7) Hypothyroidism Code(s): E03.9 - HYPOTHYROIDISM, UNSPECIFIED Status: Chronic Qualifiers: Hypothyroidism type: unspecified Qualified Code(s): E03.9 - Hypothyroidism , unspecified (8) Anemia Code(s): D64.9 - ANEMIA, UNSPECIFIED Status: Acute Qualifiers: Anemia type: unspecified type Qualified Code(s): D64.9 - Anemia, unspecified (9) H/O: CVA (cerebrovascular accident) Code(s): Z86.73 - PRSNL HX OF TIA (TIA), AND CEREB INFRC W/O RESID DEFICITS Status: Chronic Comment: h/o cva 02/2019 with left hemiparesis (10) Hyperkalemia Code(s): E87.5 - HYPERKALEMIA Status: Resolved (11) SELMA (acute kidney injury) Code(s): N17.9 - ACUTE KIDNEY FAILURE, UNSPECIFIED Status: Acute (12) Metabolic acidosis Code(s): E87.2 - ACIDOSIS Status: Acute (13) Mass of right cardiac ventricle Code(s): I51.89 - OTHER ILL-DEFINED HEART DISEASES Status: Acute Comment: ? thrombus or met in transit - Plan echo shows new mass in RV, usg venous doppler to r/o dvt -: await various cytology/flow cytometry results -: if above are non diagnostic then bronch with ebus -: poor prognosis -: continue decadron, nebs, synthroid and sertraline for now * . Review of Systems - Medications/Allergies Allergies/Adverse Reactions: Allergies Allergy/AdvReac Type Severity Reaction Status Date / Time codeine Allergy Verified 09/25/18 12:44 meperidine HCl [From Demerol] Allergy Verified 09/25/18 12:44 Penicillins Allergy Verified 09/25/18 12:44 sulfamethoxazole Allergy Verified 09/25/18 12:44 [From Bactrim] trimethoprim [From Bactrim] Allergy Verified 09/25/18 12:44 Medications: Current Medications Acetaminophen (Tylenol) 650 mg PO Q4H PRN PRN Reason: Headache/Fever/Mild Pain (1-3) Albuterol/Ipratropium (Duoneb) 3 ml NEB [id number] PRN PRN Reason: SOB &/or Wheezing Last Admin: 05/06/19 18:16 Dose: 3 ml Dexamethasone (Decadron) 4 mg SLOW IVP 0200,0800,1400,2000 DANIEL Last Admin: 05/07/19 08:27 Dose: 4 mg Dextrose/Water (Dextrose 50%) 25 gm SLOW IVP PRN PRN PRN Reason: Hypoglycemia Glucagon (Glucagon) 1 mg IM PRN PRN PRN Reason: Hypoglycemia Dextrose/Water (D5w) 1,000 mls @ 0 mls/hr IV .Q0M PRN PRN Reason: Hypoglycemia Insulin Human Lispro (Humalog) 0 units SC .MODERATE SLIDING SC PRN PRN Reason: Moderate Correctional Scale Last Admin: 05/07/19 11:50 Dose: 4 unit Insulin Human Lispro (Humalog) 0 units SC .BEDTIME SLIDING SC PRN PRN Reason: Bedtime Correctional Scale Last Admin: 05/06/19 20:36 Dose: 2 unit Levothyroxine Sodium (Synthroid) 175 mcg PO 0600 DANIEL Last Admin: 05/07/19 05:08 Dose: 175 mcg Ondansetron HCl (Zofran Odt) 4 mg PO Q6H PRN PRN Reason: Nausea/Vomiting Ondansetron HCl (Zofran) 4 mg IVP Q6H PRN PRN Reason: Nausea/Vomiting Oxycodone HCl (Oxycodone Ir) 5 mg PO Q4H PRN PRN Reason: Moderate Pain (4-6) Last Admin: 05/07/19 08:26 Dose: 5 mg Oxycodone HCl (Oxycodone Ir) 10 mg PO Q4H PRN PRN Reason: Severe Pain (7-10) Polyethylene Glycol (Miralax) 17 gm PO DAILY [facility] Last Admin: 05/07/19 08:27 Dose: Not Given Sertraline HCl (Zoloft) 50 mg PO DAILY [facility] Last Admin: 05/07/19 08:25 Dose: 50 mg Sodium Chloride (Flush - Normal Saline) 10 ml IVF PRN PRN PRN Reason: Saline Flush
--- NOTE | 2019-05-07 11:59 | PRG ---
DATE OF SERVICE: 05/07/2019 SUBJECTIVE: Patient was seen and examined at bedside and overnight events noted. Patient denies any shortness of breath or chest pain or palpitation. No history of nausea or vomiting or diarrhea or fever or chills or cramps. OBJECTIVE: GENERAL: This is a well-built female in no apparent distress. VITAL SIGNS: Temperature . Heart rate 70. Respiratory rate HEENT: Atraumatic, normocephalic. Oral mucosa is moist NECK: Supple. CARDIOVASCULAR: S1, S2 heard. Rate and rhythm regular. RESPIRATORY: Clear to auscultation. GASTROINTESTINAL: Abdomen is soft. MUSCULOSKELETAL: No tenderness. No edema. DERMATOLOGIC: No skin rash. NEUROLOGIC: Alert and awake and oriented X3. No focal neurologic deficits. Moving all the extremities. PSYCHIATRIC: Mood and affect normal. LABORATORY DATA: Not done today. Potassium is 5.4, hemoglobin 7.6. ASSESSMENT AND PLAN: 1. Acute kidney injury on chronic kidney disease stage 4, stable. 2. Hyperkalemia. Continue on low-potassium diet. 3. Anemia of chronic disease. 4. Renal cell carcinoma. Follow with Urology. 5. Prognosis guarded. We will follow. Job ID: [id number]
--- NOTE | 2019-05-07 14:19 | ULT ---
ULTRASOUND WITH DOPPLER DUPLEX VENOUS LOWER EXTREMITIES BILATERAL: DATE: 05/07/19 HISTORY: 59-year-old female with bilateral lower extremity pain and edema. TECHNIQUE: Color flow Doppler, spectral waveform analysis of pulsed Doppler, and best-scale imaging with yanet herve and augmentation, were used to evaluate the bilateral common femoral, femoral, popliteal, distribution agent ior tibial, and superficial femoral, veins; and the proximal portions of the profunda femoral and gre ater saphenous, veins. FINDINGS: There is a small amount of hyperechoic material partially filling the lumen of the proximal aspect of the right profunda femoral vein which appears to be a nonacute deep venous thrombosis or sequelae of such. No other filling defect is identified in the rest of the bilateral interrogated deep veins, which hav e flow and normal compressibility. There is edema in the soft tissues of the left posterior knee. IMPRESSION: 1. Evidence for probably nonacute, nonocclusive deep venous thrombosis at right profunda femoral vei n. 2. No deep venous thrombosis in the rest of the bilateral lower extremity veins. LEEANN Morrison POS: CET
--- NOTE | 2019-05-07 14:32 | PRG ---
DATE OF SERVICE: 05/07/2019 SUBJECTIVE: The patient was seen and examined. I agree with Josie Yang's evaluation on 05/07/2019. The patient is a 59-year-old woman, admitted for left hemiparesis and a constellation of other medical symptoms and has been found to have a systemic malignancy. Imaging of the brain was performed with an MRI without gadolinium due to diminished renal function. That reveals a small lesion in the right motor strip of the right frontal lobe, consistent with metastasis. There was extensive vasogenic edema. IMPRESSION AND PLAN: Small right frontal metastasis. This lesion does not require surgery and should be treated with radiation once the primary malignancy is defined. She is on Decadron for treatment of her vasogenic edema and is already clinically improving. The timing of taper from Decadron can be decided once a plan for radiation for the brain has been decided and we will defer this to Oncology. Job ID: [id number]
--- NOTE | 2019-05-08 00:08 | CON ---
DATE OF CONSULTATION: 05/07/2019 REASON FOR CONSULTATION: Abnormal echo. HISTORY OF PRESENT ILLNESS: Ms. Alex is a pleasant 59-year-old white female, who comes to the hospital for abdominal pain. She was evaluated and found to have a large complex renal mass on her right kidney. During her evaluation, an echocardiogram was performed that showed a mass on her right atrium which was difficult to characterize thoracic echo. Cardiology has been consulted for consideration of a transesophageal echo. PAST MEDICAL HISTORY: 1. Renal cell carcinoma, metastatic, advanced. 2. Hypertension. 3. Renal failure. 4. Tobacco use. OUTPATIENT MEDICATIONS: Include: 1. Tylenol p.r.n. 2. Aspirin 81 a day. 3. Glipizide 5 mg a day. 4. Sodium bicarb. 5. Clopidogrel 75 mg a day. 6. Sertraline. 7. Levothyroxine 175 mcg a day. 8. Vitamin B complex. 9. Lovastatin 40 mg at bedtime. 10. Carvedilol 12.5 mg b.i.d. 11. Amlodipine 5 mg a day. 12. Promethazine. 13. Fish oil. 14. Vitamin B12. 15. Vitamin D3. 16. Veltassa. ALLERGIES: CODEINE, MEPERIDINE, PENICILLIN, SULFA DRUGS, AND TRIMETHOPRIM. SOCIAL HISTORY: Positive for tobacco use. No alcohol. No drug use. FAMILY HISTORY: Noncontributory. REVIEW OF SYSTEMS: 60 pounds weight loss in last few months, poor appetite, increased abdominal girth. Otherwise unremarkable. PHYSICAL EXAMINATION: VITAL SIGNS: Temperature 97.6, pulse 74, respiratory rate 16, sat 94% on room air, and blood pressure 165/67. GENERAL: Awake, alert, oriented x3. No distress. HEENT: Normocephalic, atraumatic. NECK: Supple. LUNGS: Clear. CARDIOVASCULAR: S1 and S2. No S3 or S4. I do not hear a tumor plop. ABDOMEN: Mildly tender, but no rebound or guarding. EXTREMITIES: 1+ edema bilaterally. SKIN: Warm and dry. LABORATORY DATA: Laboratory work was reviewed, pancytopenic currently with a low white count, low hemoglobin and low platelet count. Chemistries were reviewed. Her potassium was 5.4 yesterday with a BUN of 33, creatinine 2.28. Her potassium actually better, was at 6.0 just a few days back. Echocardiogram was reviewed. ASSESSMENT: 1. Metastatic renal cell carcinoma, advanced. 2. Metastasis to the brain with MRI showing one single lesion with a rim suggesting hemorrhage around the mass. 3. Right atrial mass. PLAN: 1. I had a long conversation with Ms. Alex and her family about her prognosis, as well as about the need for transesophageal echo. Currently, her right-sided chambers seem to be normal functioning. This mass could either be metastatic disease from her renal cell carcinoma versus a thrombus in transit or may be a thrombus attached to the wall of the right atrium. If the thrombus was to be the case, she would be a candidate for full anticoagulation and she also has nonocclusive thrombus on her leg, so this would go with this. However, full anticoagulation is currently prohibitive given the hemorrhagic transformation on her metastatic mass on her brain, so giving her full anticoagulation right now is not an option. If this was to be a mass, whether it is a cardiac mass primarily or metastatic lesion which is most likely what this is, the only way to find that out is with open-heart surgery and taking a sample of it. She is obviously not a candidate for this at this time. If this mass becomes big enough to impair right-sided pressures and right-sided blood flow, this may hit her demise. Currently, I think we can evaluate the right-sided function in the mass with transthoracic echo and transesophageal echo would not give me any extra information. At this point, the family is really not that interested in proceeding with this. They would like to be as conservative as possible. 2. I would have to agree with this. I think focusing on comfort care is better than anything else. If she is not a candidate to have her brain metastatic disease treated, she has a very poor long-term prognosis. 3. At this point, I will hold off on a transesophageal echo given this will not change our management significantly. We will continue to monitor the heart with serial echocardiograms, probably will need a repeat echo in about 2 months from now. This can be certainly arranged as an outpatient. Thank you for letting me to participate in the care of your patient. We will sign off. Please call with any questions. Job ID: [id number]
[2019-05-08] MEDS: Dexamethasone 4 mg/ml Vial SLOW IVP SCH ×4 (02:43→22:05)
[2019-05-08 05:37] LABS: #Lymphocytes 0.6 thou/uL (1.20-3.40); #Monocytes 0.5 thou/uL (0.11-0.59); %Basophils 0.3 % (0.0-1.0); %Eosinophils 0.2 % (0.0-10.0); %Lymphocytes 14.1 % (21.0-51.0); %Monocytes 11.8 % (0.0-10.0); %Neutrophils 73.6 % (42.0-75.0); Hemoglobin 8.1 g/dL (12.0-16.0); Mean Corpuscular HGB CONC 31.7 g/dL (32.0-36.0); Mean Corpuscular Hemoglobin 30.1 pg (27.0-31.0); Mean Corpuscular Volume 94.8 fL (78.0-98.0); Mean Platelet Volume 7.7 fL (7.4-10.4); Platelet Count 114 thou/uL (130-400); RBC Distribution Width 16.5 % (11.5-14.5); Red Blood Cell (RBC) Count 2.69 mill/uL (4.20-5.40); White Blood Cell (WBC) Count 4.1 thou/uL (4.8-10.8)
[2019-05-08 05:52] LABS: Anion Gap 12 mmol/L (10-20); BUN (Urea Nitrogen) 36 mg/dL (9.8-20.1); Calc. Creatinine Clearance 34 mL/min (70-130); Calcium 9.7 mg/dL (7.8-10.44); Carbon Dioxide 28 mmol/L (22-29); Chloride 98 mmol/L (98-107); Estimated GFR-MDRD 25; Glucose 247 mg/dL (70-105); Potassium 5.9 mmol/L (3.5-5.1); Sodium 132 mmol/L (136-145)
[2019-05-08] MEDS: Levothyroxine 175 MCG TAB PO SCH (06:03)
[2019-05-08] MEDS: oxyCODONE 5 MG TAB PO PRN ×3 (06:05→19:43)
[2019-05-08] MEDS: HumaLOG 300 UNITS/3 ML VIAL SC PRN ×4 (06:33→22:06)
[2019-05-08] MEDS: Polyethylene Glycol 3350 17 GM Packet PO SCH (09:04)
--- NOTE | 2019-05-08 12:26 | PDOC.PALCO ---
Palliative Care Consult - Consult Details Requesting Physician: Dr Shafer Reason for Consult: symptom management, advance directives assistance - Pertinent HPI Patient presented to the Er after visiting with her primary care secondary to abdominal pain and nausea and vomiting. Patient seen and admitted to hospital for further evaluation. Patient with CVA in spring 2018 (as per patient history ) currently has known renal mass and metastasis to right frontal lobe that was identified this admission. Patient states pain to back remains a 3-4 and intermittently increased. - Pertinent PMH Right renal mass, DM II, Cirrhosis, HDL, HTN, acute kidney injury, anemia - Social History Smoking Status: Former smoker Smoking: quit greater than 1 year Alcohol Use: none Drug Use History: none Living Situation: independent, other (Lives with her daughter) - Medications MAR Reviewed: Yes - Allergies Allergies/Adverse Reactions: Allergies Allergy/AdvReac Type Severity Reaction Status Date / Time codeine Allergy Verified 09/25/18 12:44 meperidine HCl [From Demerol] Allergy Verified 09/25/18 12:44 Penicillins Allergy Verified 09/25/18 12:44 sulfamethoxazole Allergy Verified 09/25/18 12:44 [From Bactrim] trimethoprim [From Bactrim] Allergy Verified 09/25/18 12:44 - Subjective Patient was in her hospital bed upon my arrival, chronically ill appearing. Weakness. Patient oriented, however thought pattern is slow and speech soft. Patient pain constant to lower back, non specific. - Objective Vital Signs: Vital Signs - Most Recent Temp Pulse Resp BP Pulse Ox 97.8 F 75 16 174/71 H 90 L 05/08/19 11:38 05/08/19 11:38 05/08/19 11:38 05/08/19 11:38 05/08/19 11:38 Palliative Performance Scale: 30 - Advance Directives Medical Power of Neurology Specialist: Patient requests Son Jerome be made MPOChristopher, Christopher Sanchez to obtain paperwork/signat - Physical Exam Constitutional: NAD Deviation from normal: Chronically ill appearing, turgor poor, palor HEENT: moist MMs, EOMI Respiratory: unlabored breathing Cardiovascular: RRR Gastrointestinal: soft, positive bowel sounds Musculoskeletal: edema present Deviation from normal: reflecitve, mildly depressed Deviation from normal: Pallor, poor turgor - Problem List (1) Palliative care encounter Code(s): Z51.5 - ENCOUNTER FOR PALLIATIVE CARE Current Visit: Yes Status: Acute Comments: Continue supportive care, discussed life review today with patient. WIll obtain MPOA paperwork, patient requesting her son Jerome to be MPOA. Will suggest Fentanyl patch to effectively manage pain for patient with Dr Shafer (2) Renal mass, right Code(s): N28.89 - OTHER SPECIFIED DISORDERS OF KIDNEY AND URETER Current Visit : Yes Status: Acute - Plan/Recommendations Plan: *Add Fentanyl Patch 25mcg *Monitor therapeutic effect of fentanyl patch and adjust to ensure optimal functionl status for patient *Obtain signature for MPOA (Patient requesting her son Jerome) Porsha Sanchez notified *Support family and patient as goals of care per patient are to have a quality of life as she mentioned Hospice as a consideration [60] minutes spent on this encounter with >50% of the time in counseling and coordination of care. Thank you for this very appropriate consult.
[2019-05-08] MEDS ORDERED: VELTASSA 8.4 GM PO SCH (12:30)
--- NOTE | 2019-05-08 13:11 | PRG ---
DATE OF SERVICE: 05/08/2019 SUBJECTIVE: Patient was seen and examined at bedside and overnight events noted. Patient denies any shortness of breath or chest pain or palpitation. No history of nausea or vomiting or diarrhea or fever or chills or cramps. OBJECTIVE: GENERAL: This is a well-built female, in no acute distress. VITAL SIGNS: Temperature 97.6. Heart rate 64. Respiratory rate 16. Blood pressure 156/70. HEENT: Atraumatic, normocephalic. Oral mucosa is moist NECK: Supple. CARDIOVASCULAR: S1, S2 heard. Rate and rhythm regular. RESPIRATORY: Clear to auscultation. GASTROINTESTINAL: Abdomen is soft. MUSCULOSKELETAL: No tenderness. No edema. DERMATOLOGIC: No skin rash. NEUROLOGIC: Alert and awake and oriented X3. No focal neurologic deficits. Moving all the extremities. PSYCHIATRIC: Mood and affect normal. LABORATORY DATA: Potassium 5.9, BUN is 36, creatinine is 2.04. ASSESSMENT AND PLAN: 1. Acute kidney injury on chronic kidney disease, stage 4, stable. 2. Hyperkalemia. We will continue Veltassa. 3. Hyponatremia. 4. Hyperglycemia. 5. Metastatic cancer. Follow up with Oncology and other specialists. Very poor prognosis. We will follow renal function. Job ID: [id number]
[2019-05-08] MEDS ORDERED: diphenhydrAMINE 25 MG CAP PO SCH (18:30)
--- NOTE | 2019-05-08 20:38 | PRG ---
DATE OF SERVICE: 05/08/2019 SERVICE: Pulmonary Medicine. INTERVAL HISTORY: The patient is doing fine from respiratory standpoint. She indicates she is breathing comfortably. There has been no interval change to her condition. She got a little bit of lower extremity swelling but otherwise, denies any current fevers, chills, cough, sputum production, nausea, or vomiting. PHYSICAL EXAMINATION: VITAL SIGNS: Afebrile. Pulse 74, blood pressure 146/68, respirations 16, saturation 90% on room air. GENERAL: The patient is awake and alert, in no apparent distress. LUNGS: Decent air entry. Dependent crackles are minimal. There is a prolonged expiratory phase, but no wheezing is appreciated. HEART: Normal rate, regular. ABDOMEN: Soft. Nontender. Nondistended. Bowel sounds are positive. MUSCULOSKELETAL: No cyanosis or clubbing. No pitting in the bilateral lower extremities. NEUROLOGIC: Grossly nonfocal. LABORATORY DATA: WBC 4.1, hemoglobin 8.1, platelets 114,000. INR 1.4. Creatinine 2.04 and gently downtrending. Sodium 132, potassium 5.9 and up trending. Cytology on the paracentesis fluid was negative for any malignant cells. IMAGING: Echocardiogram shows a 50% to 55% ejection fraction. Moderately large right ventricle. There is also a mass in the right ventricular outflow tract. Moderate pericardial effusion is noted. Ultrasound of the bilateral lower extremities demonstrates evidence for probable nonacute, nonocclusive DVT at the right profunda. ASSESSMENT: 1. Widespread metastatic process. 2. Mediastinal lymphadenopathy. 3. Pulmonary nodules. 4. Brain metastases. 5. Chronic kidney disease, close to baseline. DISCUSSION AND PLAN: The patient is stable from respiratory standpoint. Since the cytology on the paracentesis fluid was negative, we will proceed with an endoscopic bronchial ultrasound of the mediastinal lymph nodes tomorrow morning. Tentatively, we will schedule for 09:30. Pulmonary Critical Care will continue to follow for now. Job ID: [id number]
[2019-05-09] MEDS: Dexamethasone 4 mg/ml Vial SLOW IVP SCH ×4 (01:41→21:05)
[2019-05-09 05:50] LABS: #Lymphocytes 0.6 thou/uL (1.20-3.40); #Monocytes 0.4 thou/uL (0.11-0.59); %Basophils 0.2 % (0.0-1.0); %Eosinophils 0.4 % (0.0-10.0); %Lymphocytes 14.7 % (21.0-51.0); %Monocytes 9.5 % (0.0-10.0); %Neutrophils 75.3 % (42.0-75.0); Hemoglobin 8.2 g/dL (12.0-16.0); Mean Corpuscular HGB CONC 30.8 g/dL (32.0-36.0); Mean Corpuscular Hemoglobin 29.5 pg (27.0-31.0); Mean Corpuscular Volume 95.6 fL (78.0-98.0); Mean Platelet Volume 7.9 fL (7.4-10.4); Platelet Count 105 thou/uL (130-400); RBC Distribution Width 16.3 % (11.5-14.5); Red Blood Cell (RBC) Count 2.78 mill/uL (4.20-5.40)
[2019-05-09] MEDS ORDERED: Morphine 2 MG/ML SYRINGE SLOW IVP SCH (06:30)
[2019-05-09] MEDS: HumaLOG 300 UNITS/3 ML VIAL SC PRN (06:57)
[2019-05-09] MEDS: Levothyroxine 175 MCG TAB PO SCH (08:52)
[2019-05-09] MEDS ORDERED: Dexamethasone 4 mg/ml Vial ONE (09:11)
[2019-05-09] MEDS ORDERED: Fentanyl 100 MCG/2 ML VIAL ONE (10:17)
--- NOTE | 2019-05-09 10:43 | PRG ---
DATE OF SERVICE: 05/09/2019 SUBJECTIVE: Patient was seen and examined at bedside and overnight events noted. Patient denies any shortness of breath or chest pain or palpitation. No history of nausea or vomiting or diarrhea or fever or chills or cramps. OBJECTIVE: GENERAL: This is an elderly female, in no apparent distress. VITAL SIGNS: Temperature 97.9. Heart rate . Respiratory rate 18. Blood pressure . HEENT: Atraumatic, normocephalic. Oral mucosa is moist NECK: Supple. CARDIOVASCULAR: S1, S2 heard. Rate and rhythm regular. RESPIRATORY: Clear to auscultation. GASTROINTESTINAL: Abdomen is soft. MUSCULOSKELETAL: No tenderness. No edema. DERMATOLOGIC: No skin rash. NEUROLOGIC: Alert and awake and oriented X3. No focal neurologic deficits. Moving all the extremities. PSYCHIATRIC: Mood and affect normal. LABORATORY DATA: Not done today. ASSESSMENT AND PLAN: 1. Acute kidney injury on chronic kidney stage 4. Monitor labs. 2. Hyperkalemia. Continue Veltassa. Limit potassium. 3. Hyponatremia. Monitor. 4. Hypertension. Stable. 5. Anemia of chronic disease. 6. Prognosis is guarded. We will continue to follow. Monitor labs. We will follow renal function. We will follow. Job ID: [id number]
[2019-05-09] MEDS ORDERED: Promethazine HCl 25 MG/ML VIAL IM PRN (11:45)
[2019-05-09] MEDS ORDERED: Ondansetron HCl/PF 4 MG/2 ML Vial IVP PRN (11:45)
[2019-05-09] MEDS ORDERED: Promethazine HCl 25 MG/ML VIAL SLOW IVP PRN (11:45)
--- NOTE | 2019-05-09 11:48 | PDOC.PN ---
- Subjective Encounter Start Date: 05/09/19 Encounter Start Time: 08:00 Subjective: no sob, feels better, is npo for bronch - Objective Resuscitation Status - Order Detail: 05/06/19 12:34 Resuscitation Status Routine Resuscitation Status: DNAR: NO Resuscitation Discussed with: d/w patient, daughter and sister at bedside MAR Reviewed: Yes Vital Signs & Weight: Vital Signs (12 hours) Temp Pulse Resp BP Pulse Ox 05/09/19 07:44 97.3 F L 59 L 16 145/59 H 92 L 05/09/19 03:58 98 F 61 16 153/69 H 94 L 05/09/19 01:57 96 Weight Weight 158 lb 3.2 oz I&O: 05/08/19 05/09/19 05/10/19 06:59 06:59 06:59 Intake Total 530 720 Balance 530 720 Result Diagrams: 05/09/19 05:32 05/08/19 04:37 Additional Labs: Accuchecks 05/09/19 05/08/19 05/08/19 06:02 20:05 16:21 POC Glucose 196 H 243 H 267 H Phys Exam - Physical Examination HEENT: PERRLA, moist MMs Neck: no JVD, supple Respiratory: no wheezing, no rales Cardiovascular: RRR, no significant murmur Gastrointestinal: soft, non-tender, positive bowel sounds Musculoskeletal: pulses present, edema present left hemiplegia Dx/Plan (1) Right frontal lobe mass Code(s): G93.9 - DISORDER OF BRAIN, UNSPECIFIED Status: Acute Comment: likely metastases with edema (2) Renal mass, right Code(s): N28.89 - OTHER SPECIFIED DISORDERS OF KIDNEY AND URETER Status: Acute (3) Cirrhosis Code(s): K74.60 - UNSPECIFIED CIRRHOSIS OF LIVER Status: Suspected Qualifiers: Ascites presence: with ascites (4) DM type 2 (diabetes mellitus, type 2) Status: Chronic Qualifiers: Diabetes mellitus termite control service representative insulin use: without termite control service representative use Diabetes mellitus complication status: with kidney complications Diabetes mellitus complication detail: with chronic kidney disease Chronic kidney disease stage : stage 3 (moderate) Qualified Code(s): E11.22 - Type 2 diabetes mellitus with diabetic chronic kidney disease; N18.3 - Chronic kidney disease, stage 3 ( moderate) (5) HLD (hyperlipidemia) Code(s): E78.5 - HYPERLIPIDEMIA, UNSPECIFIED Status: Chronic Qualifiers: Hyperlipidemia type: unspecified Qualified Code(s): E78.5 - Hyperlipidemia , unspecified (6) HTN (hypertension) Code(s): I10 - ESSENTIAL (PRIMARY) HYPERTENSION Status: Chronic Qualifiers: Hypertension type: essential hypertension Qualified Code(s): I10 - Essential (primary) hypertension (7) Hypothyroidism Code(s): E03.9 - HYPOTHYROIDISM, UNSPECIFIED Status: Chronic Qualifiers: Hypothyroidism type: unspecified Qualified Code(s): E03.9 - Hypothyroidism , unspecified (8) Anemia Code(s): D64.9 - ANEMIA, UNSPECIFIED Status: Acute Qualifiers: Anemia type: unspecified type Qualified Code(s): D64.9 - Anemia, unspecified (9) H/O: CVA (cerebrovascular accident) Code(s): Z86.73 - PRSNL HX OF TIA (TIA), AND CEREB INFRC W/O RESID DEFICITS Status: Chronic Comment: h/o cva 02/2019 with left hemiparesis (10) Hyperkalemia Code(s): E87.5 - HYPERKALEMIA Status: Resolved (11) SELMA (acute kidney injury) Code(s): N17.9 - ACUTE KIDNEY FAILURE, UNSPECIFIED Status: Acute (12) Metabolic acidosis Code(s): E87.2 - ACIDOSIS Status: Acute (13) Mass of right cardiac ventricle Code(s): I51.89 - OTHER ILL-DEFINED HEART DISEASES Status: Acute Comment: ? thrombus or met in transit - Plan for bronchoscopy with usg guided biopsy today -: poor prognosis -: await onc opinion once tissue diagnosis is completed to see if there are an -: -y options available for her, if not it will be home with hospice -: is on dexamethasone, fentanyl tts, nebs, glipizide and synthroid * . Review of Systems - Medications/Allergies Allergies/Adverse Reactions: Allergies Allergy/AdvReac Type Severity Reaction Status Date / Time codeine Allergy Verified 09/25/18 12:44 meperidine HCl [From Demerol] Allergy Verified 09/25/18 12:44 Penicillins Allergy Verified 09/25/18 12:44 sulfamethoxazole Allergy Verified 09/25/18 12:44 [From Bactrim] trimethoprim [From Bactrim] Allergy Verified 09/25/18 12:44 Medications: Current Medications Acetaminophen (Tylenol) 650 mg PO Q4H PRN PRN Reason: Headache/Fever/Mild Pain (1-3) Albuterol/Ipratropium (Duoneb) 3 ml NEB V6KS-CM PRN PRN Reason: SOB &/or Wheezing Last Admin: 05/06/19 18:16 Dose: 3 ml Dexamethasone (Decadron) 4 mg SLOW IVP 0200,0800,1400,2000 [facility] Last Admin: 05/09/19 01:41 Dose: 4 mg Dextrose/Water (Dextrose 50%) 25 gm SLOW IVP PRN PRN PRN Reason: Hypoglycemia Fentanyl (Duragesic) 12 mcg TD Q3D [facility] Last Admin: 05/08/19 15:54 Dose: Not Given Fentanyl (Pacu-Sublimaze) 50 mcg SLOW IVP Q10MIN PRN PRN Reason: Moderate to Severe Pain (6-10) Stop: 05/09/19 14:45 Glipizide (Glucotrol) 5 mg PO DAILY [facility] Glucagon (Glucagon) 1 mg IM PRN PRN PRN Reason: Hypoglycemia Dextrose/Water (D5w) 1,000 mls @ 0 mls/hr IV .Q0M PRN PRN Reason: Hypoglycemia Insulin Human Lispro (Humalog) 0 units SC .MODERATE SLIDING SC PRN PRN Reason: Moderate Correctional Scale Last Admin: 05/09/19 06:57 Dose: 2 unit Insulin Human Lispro (Humalog) 0 units SC .BEDTIME SLIDING SC PRN PRN Reason: Bedtime Correctional Scale Last Admin: 05/08/19 22:06 Dose: 2 unit Levothyroxine Sodium (Synthroid) 175 mcg PO 0600 [facility] Last Admin: 05/09/19 08:52 Dose: Not Given Ondansetron HCl (Zofran Odt) 4 mg PO Q6H PRN PRN Reason: Nausea/Vomiting Ondansetron HCl (Zofran) 4 mg IVP Q6H PRN PRN Reason: Nausea/Vomiting Ondansetron HCl (Pacu-Zofran) 4 mg IVP ONE PRN PRN Reason: Nausea/Vomiting Stop: 05/09/19 14:45 Oxycodone HCl (Oxycodone Ir) 5 mg PO Q4H PRN PRN Reason: Moderate Pain (4-6) Last Admin: 05/08/19 06:05 Dose: 5 mg Oxycodone HCl (Oxycodone Ir) 10 mg PO Q4H PRN PRN Reason: Severe Pain (7-10) Last Admin: 05/08/19 19:43 Dose: 10 mg Patient's Home Medication (Veltassa 8.4 G) 0 each PO DAILY [facility] Polyethylene Glycol (Miralax) 17 gm PO DAILY [facility] Last Admin: 05/08/19 09:04 Dose: Not Given Promethazine HCl (Pacu-Phenergan) 6.25 mg SLOW IVP ONE PRN PRN Reason: Nausea/Vomiting Stop: 05/09/19 14:45 Promethazine HCl (Pacu-Phenergan) 6.25 mg IM ONE PRN PRN Reason: Nausea/Vomiting Stop: 05/09/19 14:45 Sertraline HCl (Zoloft) 50 mg PO DAILY [facility] Last Admin: 05/08/19 09:05 Dose: 50 mg Sodium Chloride (Flush - Normal Saline) 10 ml IVF PRN PRN PRN Reason: Saline Flush Last Admin: 05/09/19 01:46 Dose: 10 ml
[2019-05-09] MEDS: Polyethylene Glycol 3350 17 GM Packet PO SCH (12:55)
[2019-05-09] MEDS: glipiZIDE 5 MG TAB PO SCH (12:56)
[2019-05-09] MEDS: oxyCODONE 5 MG TAB PO PRN (13:21)
[2019-05-09] MEDS: VELTASSA 8.4 GM PO SCH (15:32)
--- NOTE | 2019-05-09 16:37 | PRG ---
DATE OF SERVICE: 05/09/2019 SERVICE: Pulmonary Medicine. INTERVAL HISTORY: The patient is doing really well from respiratory standpoint. She denies any current cough, fevers, chills, shortness of breath. She is looking forward to having this procedure performed. PHYSICAL EXAMINATION: VITAL SIGNS: Afebrile. Pulse 60, blood pressure 150/65, respirations 16, saturation is 93% on 1 L nasal cannula. GENERAL: The patient is awake and alert, in no apparent distress. LUNGS: Decent air entry. There is minimal dependent crackles present. There is a prolonged expiratory phase. I do not appreciate any wheezing currently. HEART: Normal rate, regular. ABDOMEN: Soft, nontender, nondistended, bowel sounds are positive. MUSCULOSKELETAL: No cyanosis or clubbing. There is 1 to 2+ pitting in bilateral lower extremities. NEUROLOGIC: Grossly nonfocal. LABORATORY DATA: WBC 4.0, hemoglobin 8.2, platelets 105,000 and stable. Glucose is between 196 and 267. Body fluid culture is negative to date. ASSESSMENT: 1. Renal mass. 2. Widespread metastatic process. 3. Mediastinal lymphadenopathy. 4. Pulmonary nodules. 5. Brain metastases. 6. Chronic kidney disease. DISCUSSION AND PLAN: We will proceed with our endoscopic bronchial ultrasound as previously planned. Other supportive care will be continued. Pulmonary will continue to follow for the time being. Job ID: [id number]
--- NOTE | 2019-05-09 16:57 | OP ---
DATE OF PROCEDURE: 05/09/2019 SERVICE: Pulmonary Medicine. PROCEDURES PERFORMED: 1. Fiberoptic bronchoscopy with;. a. Limited airway evaluation. 2. Endoscopic bronchial ultrasound-guided transbronchial needle aspiration of station R4, 7. PREPROCEDURAL DIAGNOSES: 1. Widespread metastatic process. 2. Mediastinal lymphadenopathy. POSTPROCEDURE DIAGNOSES: 1. Widespread metastatic process. 2. Mediastinal lymphadenopathy. ANESTHESIA: Please refer to Anesthesia documentation for list of medications administered during this procedure. PREANESTHESIA ASSESSMENT: H and P had been performed. The patient's medications and allergies were reviewed. Informed consent was obtained after discussing the rationale, benefits, and risks of the procedure. Alternative options for sample collection were also discussed. TIME-OUT: The patient was positively identified with name and date of . The proposed procedure was verified. DESCRIPTION OF PROCEDURE: After induction with the anesthesia, the curvilinear endoscopic bronchial ultrasound Olympus bronchoscope was introduced through the endotracheal tube and into the tracheobronchial tree. A limited visual airway inspection was performed. There were no abnormalities noted in the trachea or mainstem bronchi. The bronchoscope was then withdrawn into the trachea and a lore survey was performed. Ultimately, endoscopic bronchial ultrasound-guided transbronchial needle aspiration of R4, and 7 were completed. There was no significant bleeding post biopsy. The patient had stable vitals throughout the entire procedure without any significant desaturation. FINDINGS: 1. No endobronchial disease of the distal trachea or mainstem bronchi on this limited evaluation. 2. Angela appeared blunted. 3. Rapid onset examination demonstrated malignant tissue. SPECIMENS OBTAINED: 1. Fine-needle aspiration of station R4, and 7 for cytology. 2. Final aspiration of R4, and 7 for cell block. COMPLICATIONS: None. ESTIMATED BLOOD LOSS: Less than 2 mL. DISPOSITION: The patient will be transitioned back to her unit after she meets criteria in the postanesthesia care unit. Job ID: [id number]
[2019-05-10] MEDS: oxyCODONE 5 MG TAB PO PRN ×2 (00:17→09:00)
[2019-05-10] MEDS: Dexamethasone 4 mg/ml Vial SLOW IVP SCH ×4 (02:21→20:16)
[2019-05-10 05:38] LABS: #Lymphocytes 0.8 thou/uL (1.20-3.40); #Monocytes 0.4 thou/uL (0.11-0.59); #Neutrophils 3.5 thou/uL (1.40-6.50); %Eosinophils 0.9 % (0.0-10.0); %Lymphocytes 17.2 % (21.0-51.0); %Neutrophils 72.9 % (42.0-75.0); Mean Corpuscular HGB CONC 30.8 g/dL (32.0-36.0); Mean Corpuscular Hemoglobin 29.4 pg (27.0-31.0); Mean Corpuscular Volume 95.5 fL (78.0-98.0); Mean Platelet Volume 7.8 fL (7.4-10.4); Platelet Count 111 thou/uL (130-400); RBC Distribution Width 16.2 % (11.5-14.5); Red Blood Cell (RBC) Count 2.71 mill/uL (4.20-5.40); White Blood Cell (WBC) Count 4.8 thou/uL (4.8-10.8)
[2019-05-10 05:48] LABS: Anion Gap 13 mmol/L (10-20); BUN (Urea Nitrogen) 42 mg/dL (9.8-20.1); Calc. Creatinine Clearance 32 mL/min (70-130); Calcium 9.5 mg/dL (7.8-10.44); Carbon Dioxide 29 mmol/L (22-29); Chloride 97 mmol/L (98-107); Estimated GFR-MDRD 24; Glucose 104 mg/dL (70-105); Potassium 5.7 mmol/L (3.5-5.1); Sodium 133 mmol/L (136-145)
[2019-05-10] MEDS: Levothyroxine 175 MCG TAB PO SCH (06:16)
[2019-05-10] MEDS: glipiZIDE 5 MG TAB PO SCH (09:00)
[2019-05-10] MEDS: Polyethylene Glycol 3350 17 GM Packet PO SCH (09:02)
[2019-05-10] MEDS ORDERED: Promethazine 25 MG TAB PO PRN (10:30)
[2019-05-10] MEDS ORDERED: Lorazepam 2 MG/ML VIAL ONE (10:41)
--- NOTE | 2019-05-10 11:04 | PDOC.PN ---
- Subjective Encounter Start Date: 05/10/19 Encounter Start Time: 11:01 Code Octavio was called due to patient had a seizure. when I arrived she is post ictal and confused. Her daughter and sister are at the bedside. - Objective Resuscitation Status - Order Detail: 05/06/19 12:34 Resuscitation Status Routine Resuscitation Status: DNAR: NO Resuscitation Discussed with: d/w patient, daughter and sister at bedside MAR Reviewed: Yes Vital Signs & Weight: Vital Signs (12 hours) Temp Pulse Resp BP BP Pulse Ox 05/10/19 08:00 97.9 F 62 18 167/72 H 91 L 05/10/19 04:00 98.2 F 65 16 149/65 H 91 L 05/09/19 23:59 98.7 F 64 12 154/67 H 92 L Weight Weight 158 lb 3.2 oz I&O: 05/09/19 05/10/19 05/11/19 06:59 06:59 06:59 Intake Total 720 Balance 720 Result Diagrams: 05/10/19 04:54 05/10/19 04:54 Additional Labs: Accuchecks 05/10/19 05/10/19 05/09/19 10:37 05:31 20:47 POC Glucose 94 119 H 164 H 05/09/19 16:46 POC Glucose 172 H Phys Exam - Physical Examination HEENT: sclera anicteric Respiratory: no rales, no rhonchi, wheezing present + bilateral wheezing, Cardiovascular: RRR, no significant murmur, no rub Gastrointestinal: soft, positive bowel sounds Musculoskeletal: pulses present, edema present + bilateral lower extremity edema Dx/Plan (1) Seizure Code(s): R56.9 - UNSPECIFIED CONVULSIONS Status: Acute (2) Metastatic disease Code(s): C79.9 - SECONDARY MALIGNANT NEOPLASM OF UNSPECIFIED SITE Status: Acute (3) Renal mass, right Code(s): N28.89 - OTHER SPECIFIED DISORDERS OF KIDNEY AND URETER Status: Acute (4) DM type 2 (diabetes mellitus, type 2) Status: Chronic Qualifiers: Diabetes mellitus long term care administrator insulin use: without long term care administrator use Diabetes mellitus complication status: with kidney complications Diabetes mellitus complication detail: with chronic kidney disease Chronic kidney disease stage : stage 3 (moderate) Qualified Code(s): E11.22 - Type 2 diabetes mellitus with diabetic chronic kidney disease; N18.3 - Chronic kidney disease, stage 3 ( moderate) (5) HTN (hypertension) Code(s): I10 - ESSENTIAL (PRIMARY) HYPERTENSION Status: Chronic Qualifiers: Hypertension type: essential hypertension Qualified Code(s): I10 - Essential (primary) hypertension - Plan * Seizure- likely from metastatic brain disease- ativan has been given, and will likely start Keppra IV * Continue Decadron * DM- blood glucose is stable * HTN- blood pressure is a bit elevated- continue PRN medications * Discussed the situation with her daughter and sister. Her sister tells me they had a conversation last night. The patient does not want chemotherapy, or any aggressive treatment. She is DNAR. The plan was to move her to the ICU and place her on BiPAP, but they do not want this. They would like to transition her care to comfort care only.
[2019-05-10] MEDS ORDERED: Lorazepam 2 MG/ML VIAL SLOW IVP PRN (11:09)
[2019-05-10] MEDS ORDERED: Lorazepam 2 MG/ML VIAL SLOW IVP SCH (11:15)
[2019-05-10] MEDS: VELTASSA 8.4 GM PO SCH (11:15)
--- NOTE | 2019-05-10 12:30 | PRG ---
DATE OF SERVICE: 05/10/2019 SUBJECTIVE: Patient was seen and examined at bedside and overnight events noted. Patient denies any shortness of breath or chest pain or palpitation. No history of nausea or vomiting or diarrhea or fever or chills or cramps. OBJECTIVE: GENERAL: This is a well-built female, in mild distress. VITAL SIGNS: Temperature 97.9. Heart rate 64. Respiratory rate 18. Blood pressure 167/76. HEENT: Atraumatic, normocephalic. Oral mucosa is moist NECK: Supple. CARDIOVASCULAR: S1, S2 heard. Rate and rhythm regular. RESPIRATORY: Clear to auscultation. GASTROINTESTINAL: Abdomen is soft. MUSCULOSKELETAL: No tenderness. No edema. DERMATOLOGIC: No skin rash. NEUROLOGIC: Alert and awake and oriented X3. No focal neurologic deficits. Moving all the extremities. PSYCHIATRIC: Mood and affect normal. LABORATORY DATA: Potassium is 5.7, BUN is 32, creatinine is 2.1. ASSESSMENT: 1. Acute kidney injury on chronic kidney disease, stage 4. 2. Hyperkalemia. 3. Hypertension. 4. Anemia of chronic disease. 5. Metastatic cancer. Prognosis is guarded. Family considering comfort measures. Job ID: [id number]
[2019-05-10] MEDS ORDERED: levETIRAcetam In NaCl (Iso-Os) 1,000 MG in Premix Bag 1 BAG IVPB SCH (13:30)
--- NOTE | 2019-05-10 14:01 | PRG ---
DATE OF SERVICE: 05/10/2019 SERVICE: Pulmonary Medicine. INTERVAL HISTORY: The patient was doing really well from respiratory standpoint this morning. Unfortunately, she ended up having a seizure. With this, erika bishop was called. I got a "come quick" phone pop. I went to evaluate the patient and seizure resolved. Initially, she was blue from head to toe. We gave her some oxygen. She remains a DNI/DNR. We offered to move the patient to the ICU and escalate noninvasive therapy, but the family has declined this. At this point, she is recovering albeit slowly. She cannot provide any additional elements of the history right now because of her encephalopathy. PHYSICAL EXAMINATION: VITAL SIGNS: Afebrile, pulse 76, blood pressure 143/60, respirations 18, and saturation 100% on non-rebreather. GENERAL: The patient is encephalopathic. HEENT: Normocephalic and atraumatic. Sclerae are white. Conjunctivae are pink. Oral mucosa is moist without lesions. LUNGS: Decent air entry. No prolonged expiratory phase or wheezing appreciated. HEART: Normal rate and regular. ABDOMEN: Soft, nontender, and nondistended. Bowel sounds are positive. MUSCULOSKELETAL: No cyanosis or clubbing. No pitting in the bilateral lower extremities. NEUROLOGIC: Grossly nonfocal. She demonstrates diffuse encephalopathy. LABORATORY DATA: WBC 4.8, hemoglobin 8.0, and platelets 111,000. Creatinine 2.13, sodium 144, and potassium 5.7 and gently downtrending. Rapid on-site pathology was positive for adenocarcinoma, though underlying etiology is unknown. ASSESSMENT: 1. Renal mass. 2. Widespread metastatic process. 3. Mediastinal lymphadenopathy, status post endoscopic bronchial ultrasound with fine-needle aspiration of the nodes. 4. Pulmonary nodules. 5. Brain metastases. 6. Seizure, short lived. 7. Chronic kidney disease. DISCUSSION AND PLAN: We will load the patient with Keppra. I will schedule a dose twice daily. She will remain in this location since the family is declining noninvasive therapy. We will continue our steroids, nebulized medications, and other supportive measures. Pulmonary/Critical Care will continue to follow along. Job ID: [id number]
[2019-05-10] MEDS ORDERED: Acetaminophen 1,000 MG in Premix Bag 1 BAG IVPB SCH (19:45)
[2019-05-10] MEDS ORDERED: Morphine 2 MG/ML SYRINGE SLOW IVP SCH (22:45)
[2019-05-11] MEDS: Dexamethasone 4 mg/ml Vial SLOW IVP SCH ×3 (03:12→14:11)
[2019-05-11] MEDS: Levothyroxine 175 MCG TAB PO SCH (05:33)
[2019-05-11 06:03] LABS: Band 24 % (5-11); Eosinophils 3 % (0-10); Hemoglobin 7.8 g/dL (12.0-16.0); Lymphocytes 15 % (21-51); MDiff Complete? YES; Mean Corpuscular HGB CONC 31.7 g/dL (32.0-36.0); Mean Corpuscular Hemoglobin 29.9 pg (27.0-31.0); Mean Corpuscular Volume 94.3 fL (78.0-98.0); Mean Platelet Volume 8.2 fL (7.4-10.4); Monocytes 8 % (0-10); Neutrophil 50 % (42-75); Platelet Count 86 thou/uL (130-400); Platelet Morphology Comment Appears Decreased; RBC Distribution Width 16.3 % (11.5-14.5); Red Blood Cell (RBC) Count 2.61 mill/uL (4.20-5.40)
[2019-05-11] MEDS: Polyethylene Glycol 3350 17 GM Packet PO SCH (09:04)
[2019-05-11] MEDS: glipiZIDE 5 MG TAB PO SCH (09:04)
[2019-05-11] MEDS: VELTASSA 8.4 GM PO SCH (09:04)
--- NOTE | 2019-05-11 12:05 | EKG ---
Test Reason : Blood Pressure : / mmHG Vent. Rate : 062 BPM Atrial Rate : 062 BPM P-R Int : 166 ms QRS Dur : 090 ms QT Int : 408 ms P-R-T Axes : -11 030 027 degrees QTc Int : 414 ms Normal sinus rhythm Normal ECG Confirmed by MEHDI LEVI DO ([id number]), manuscript editor ALOK MUÑOZ ([id number] on 05/11/2019 12:04:50 PM Referred By: Confirmed By:MEHDI LEVI DO
--- NOTE | 2019-05-11 13:52 | PRG ---
DATE OF SERVICE: 05/11/2019 SERVICE: Pulmonary Medicine. INTERVAL HISTORY: The patient is doing fine from respiratory standpoint. Breathing comfortably. She appears to be in no distress today. She continues to have some discomfort. Otherwise, there has been no interval change to her condition. Yesterday, she did have a seizure event. There was no additional seizure activity noted. PHYSICAL EXAMINATION: VITAL SIGNS: Afebrile, pulse 72, blood pressure 130/57, respirations are 20, and saturation 96% on 3 L nasal cannula. GENERAL: The patient is awake and alert, in no apparent distress. LUNGS: Very good air entry. No prolonged expiratory phase or wheezing is appreciated. HEART: Normal rate regular. ABDOMEN: Soft, nontender, and nondistended. Bowel sounds are positive. MUSCULOSKELETAL: No cyanosis or clubbing. There is 2 to 3+ pitting in the bilateral lower extremities. NEUROLOGIC: Grossly nonfocal. LABORATORY DATA: WBC 5.0, hemoglobin 7.8, and platelets are 86,000 and downtrending. Band count is 24%. Blood sugar ranges from 84 to 119. Body fluid culture is unremarkable. ASSESSMENT: 1. Renal mass. 2. Widespread metastatic process. 3. Mediastinal lymphadenopathy, and pulmonary nodules, status post fine-needle aspiration of the lymph node. 4. Brain metastasis. 5. Seizure x1, short lived. 6. Chronic kidney disease. DISCUSSION AND PLAN: The patient is doing fine from respiratory standpoint. We will need to clarify with Neurosurgery whether or not anticoagulation can be administered. If it can, she would require a minimum of a six-month course. We are still awaiting biopsy results. Pulmonary/Critical Care will continue to follow, intermittently while the patient remains inhouse. Please call if there is an abrupt change in the patient's condition. Job ID: [id number]
[2019-05-11] MEDS ORDERED: Morphine 4 MG/ML VIAL SLOW IVP PRN ×2 (14:32)
--- NOTE | 2019-05-11 16:53 | PDOC.PN ---
- Subjective Encounter Start Date: 05/11/19 Encounter Start Time: 16:51 Ms. Alex was seen today in follow-up of metastatic renal cancer. She is more awake today. She has had some back pain, otherwise she is ok. - Objective Resuscitation Status - Order Detail: 05/06/19 12:34 Resuscitation Status Routine Resuscitation Status: DNAR: NO Resuscitation Discussed with: d/w patient, daughter and sister at bedside MAR Reviewed: Yes Vital Signs & Weight: Vital Signs (12 hours) Temp Pulse Resp BP BP Pulse Ox 05/11/19 15:57 98.5 F 72 18 128/58 L 99 05/11/19 08:51 96 05/11/19 07:52 97.9 F 72 20 130/57 L 96 05/11/19 05:38 97 Weight Weight 152 lb 11.2 oz I&O: 05/10/19 05/11/19 05/12/19 06:59 06:59 06:59 Intake Total 290 Output Total 1000 Balance -710 Result Diagrams: 05/11/19 05:09 05/10/19 04:54 Additional Labs: Accuchecks 05/11/19 05/11/19 05/10/19 10:41 06:06 19:50 POC Glucose 84 90 108 05/10/19 16:59 POC Glucose 114 H Phys Exam - Physical Examination HEENT: PERRLA Respiratory: no wheezing, no rales, no rhonchi, clear to auscultation bilateral Cardiovascular: RRR, no significant murmur, no rub Gastrointestinal: soft, non-tender, no distention, positive bowel sounds Musculoskeletal: no edema, pulses present Dx/Plan (1) Seizure Code(s): R56.9 - UNSPECIFIED CONVULSIONS Status: Acute (2) Metastatic disease Code(s): C79.9 - SECONDARY MALIGNANT NEOPLASM OF UNSPECIFIED SITE Status: Acute (3) Renal mass, right Code(s): N28.89 - OTHER SPECIFIED DISORDERS OF KIDNEY AND URETER Status: Acute (4) DM type 2 (diabetes mellitus, type 2) Status: Chronic Qualifiers: Diabetes mellitus termite control technician insulin use: without termite control technician use Diabetes mellitus complication status: with kidney complications Diabetes mellitus complication detail: with chronic kidney disease Chronic kidney disease stage : stage 3 (moderate) Qualified Code(s): E11.22 - Type 2 diabetes mellitus with diabetic chronic kidney disease; N18.3 - Chronic kidney disease, stage 3 ( moderate) (5) HTN (hypertension) Code(s): I10 - ESSENTIAL (PRIMARY) HYPERTENSION Status: Chronic Qualifiers: Hypertension type: essential hypertension Qualified Code(s): I10 - Essential (primary) hypertension - Plan * Metastatic renal cancer- she has been accepted to inpatient Hospice * Will discharge today.
[2019-05-11 20:33] VITALS: BP 118/59; TEMP 97.4
== END 2019-05-11 20:25 | disposition hospice, inpatient (51) | DRG 686 ==
LOC: ERS 17:29 → 2SE 19:35
PROVIDERS: ADMIT Hospitalist; ATTEND Hospitalist
PROC: 0W9G3ZZ Drainage of Peritoneal Cavity, Percutaneous Approach (ICD-10-PCS; principal; 2019-05-05)
PROC: 30233N1 Transfusion of Nonautologous Red Blood Cells into Peripheral Vein, Percutaneous Approach (ICD-10-PCS; 2019-05-05)
PROC: 07D78ZX Extraction of Thorax Lymphatic, Via Natural or Artificial Opening Endoscopic, Diagnostic (ICD-10-PCS; 2019-05-09)
DX: C64.1 Malignant neoplasm of right kidney, except renal pelvis (principal); N17.0 Acute kidney failure with tubular necrosis; G93.6 Cerebral edema; Z66 Do not resuscitate; Z51.5 Encounter for palliative care; N18.4 Chronic kidney disease, stage 4 (severe); E87.1 Hypo-osmolality and hyponatremia; R18.8 Other ascites; E87.2 Acidosis; C79.31 Secondary malignant neoplasm of brain; C78.02 Secondary malignant neoplasm of left lung; C78.01 Secondary malignant neoplasm of right lung; G81.94 Hemiplegia, unspecified affecting left nondominant side; K21.9 Gastro-esophageal reflux disease without esophagitis; E03.9 Hypothyroidism, unspecified; E78.5 Hyperlipidemia, unspecified; E11.22 Type 2 diabetes mellitus with diabetic chronic kidney disease; J44.9 Chronic obstructive pulmonary disease, unspecified; D63.1 Anemia in chronic kidney disease; E87.5 Hyperkalemia; I12.9 Hypertensive chronic kidney disease with stage 1 through stage 4 chronic kidney disease, or unspecified chronic kidney disease; K74.60 Unspecified cirrhosis of liver; R16.2 Hepatomegaly with splenomegaly, not elsewhere classified; R59.0 Localized enlarged lymph nodes; I51.89 Other ill-defined heart diseases; E11.65 Type 2 diabetes mellitus with hyperglycemia; R56.9 Unspecified convulsions; Z86.73 Personal history of transient ischemic attack (TIA), and cerebral infarction without residual deficits; Z85.41 Personal history of malignant neoplasm of cervix uteri; Z90.49 Acquired absence of other specified parts of digestive tract; Z90.710 Acquired absence of both cervix and uterus; Z87.891 Personal history of nicotine dependence; Z88.0 Allergy status to penicillin; Z88.2 Allergy status to sulfonamides; Z88.5 Allergy status to narcotic agent; Z88.8 Allergy status to other drugs, medicaments and biological substances
CPT/HCPCS: 36415; 36416; 36430; 49083; 70551; 71250; 74176; 76700; 78306; 80048; 80053; 80069; 80074; 82042; 82607; 82805; 83615; 83690; 84484; 85025; 85060; 85610; 85730; 86850; 86900; 86901; 87070; 87205; 88112; 88172; 88173; 88184; 88305; 88341; 88342; 89051; 93005; 93306; 93970; 94640; 96361; 96374; 96375; A9503; J0131; J1100; J1650; J1815; J1953; J2060; J2270; J3010; J7070; J7620; P9016; Q0163